=== PATIENT | male | born 1965 | race African-American/Black ===

== ENCOUNTER 2017-02-09 18:20 | Inpatient (IN) | payer OTHER ==
[2017-02-09 18:41] VITALS: BMI 35.0
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
[2017-02-09] MEDS ORDERED: LOPERAMIDE HCL 2 MG CAPSULE PO PRN (20:53)
[2017-02-09] MEDS ORDERED: MENTHOL/PHENOL 1 EACH UD MM PRN (20:53)
[2017-02-09] MEDS ORDERED: IBUPROFEN 400 MG TABLET (FP) PO PRN (20:53)
[2017-02-09] MEDS ORDERED: MAGNESIUM HYDROX 2400MG/30ML ORAL SUSPENSION 30 ML CUP PO PRN (20:53)
[2017-02-09] MEDS ORDERED: hydrOXYzine PAMOATE 50 MG CAPSULE (FP) PO PRN (20:53)
[2017-02-09] MEDS ORDERED: guaiFENesin/D-METHORPHAN HB 10 ML UNIT-DOSE CUPS PO PRN (20:53)
[2017-02-09] MEDS ORDERED: NICOTINE POLACRILEX 2 MG GUM BC PRN (20:53)
[2017-02-09] MEDS ORDERED: MAGNESIUM CITRATE 300 ML BOTTLE PO PRN (20:53)
[2017-02-09] MEDS ORDERED: diphenhydrAMINE HCL 50 MG CAPSULE PO PRN (20:53)
[2017-02-09] MEDS ORDERED: ALBUTEROL SO4 18 GM HFA INHALER IH PRN (20:54)
[2017-02-09] MEDS: THIAMINE HCL 100 MG TABLET (FP) PO SCH (23:02)
[2017-02-09] MEDS ORDERED: MINERAL OIL/PETROLAT/WATER TOPICAL CREAM 454 GM JAR TP PRN (23:02)
[2017-02-09 23:21] LABS: URINE APPEARANCE CLEAR; URINE BILIRUBIN NEGATIVE (NEGATIVE); URINE BLOOD NEGATIVE (NEGATIVE); URINE COLOR STRAW; URINE GLUCOSE (UA) NEGATIVE (NEGATIVE); URINE KETONE NEGATIVE (NEGATIVE); URINE NITRITE NEGATIVE (NEGATIVE); URINE PROTEIN NEGATIVE (NEGATIVE); URINE UROBILINOGEN NEGATIVE mg/dL (0.2-1.0)
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
[2017-02-10 09:41] LABS: MCH 28.4 pg (25.7-33.7); MCHC 31.4 g/dl (32.0-35.9); MEAN CELL VOLUME 90.6 fl (80-96); MEAN PLT VOLUME 9.3 fl (7.5-11.1); PLATELET COUNT 268 K/MM3 (134-434); RDW 18.1 % (11.9-15.9)
--- NOTE | 2017-02-10 09:56 | EKG ---
Test Reason : Blood Pressure : / mmHG Vent. Rate : 093 BPM Atrial Rate : 093 BPM P-R Int : 138 ms QRS Dur : 086 ms QT Int : 362 ms P-R-T Axes : 062 060 033 degrees QTc Int : 450 ms NORMAL SINUS RHYTHM NORMAL ECG NO PREVIOUS ECGS AVAILABLE Confirmed by KAHLIL SHAFFER MD ([id number]) on 02/10/2017 9:55:44 AM Referred By: Confirmed By:KAHLIL SHAFFER MD
[2017-02-10 10:20] LABS: URINE LEUK ESTERASE Negative (NEGATIVE)
[2017-02-10] MEDS: amLODIPine BESYLATE 10 MG TABLET (FP) PO SCH (10:25)
[2017-02-10] MEDS: ASPIRIN 81 MG CHEWABLE TABLETS PO SCH (10:26)
[2017-02-10] MEDS: ACETAMINOPHEN 325 MG TABLET (FP) PO PRN ×2 (10:26→21:40)
[2017-02-10] MEDS: LISINOPRIL 10 MG TABLET (FP) PO SCH (10:26)
[2017-02-10] MEDS: PRENATAL VITAMINS W/ FOLIC ACID TABLET (FP) PO SCH (10:26)
[2017-02-10] MEDS: NICOTINE 14 MG/24 HOURS TOPICAL PATCH TD SCH (10:28)
[2017-02-10 10:44] LABS: ALBUMIN 3.5 g/dl (3.4-5.0); ALK PHOS 92 U/L (45-117); ANION GAP 8 (8-16); BILIRUBIN,TOTAL 0.2 mg/dL (0.2-1.0); CALCIUM 8.8 mg/dL (8.5-10.1); CO2 28 mmol/L (21-32); CREATININE 0.9 mg/dL (0.7-1.3); GLUCOSE,RANDOM 146 mg/dL (74-106); SGOT/AST 43 U/L (15-37); SGPT/ALT 55 U/L (12-78); TOT PROT 6.8 g/dl (6.4-8.2)
[2017-02-10 12:13] LABS: HIV 1 & 2 AB NEGATIVE; HIV 1 AGp24 NEGATIVE
[2017-02-10] MEDS ORDERED: PT OWN MED DRAWER 7, Y5N ONE (20:23)
[2017-02-10] MEDS: ATORVASTATIN CA 40 MG TABLET (FP) PO SCH (21:40)
[2017-02-10] MEDS: THIAMINE HCL 100 MG TABLET (FP) PO SCH (21:40)
[2017-02-11] MEDS: LISINOPRIL 10 MG TABLET (FP) PO SCH (09:52)
[2017-02-11] MEDS: amLODIPine BESYLATE 10 MG TABLET (FP) PO SCH (09:52)
[2017-02-11] MEDS: ASPIRIN 81 MG CHEWABLE TABLETS PO SCH (09:52)
[2017-02-11] MEDS: PRENATAL VITAMINS W/ FOLIC ACID TABLET (FP) PO SCH (09:52)
[2017-02-11] MEDS: NICOTINE 14 MG/24 HOURS TOPICAL PATCH TD SCH (09:52)
[2017-02-11] MEDS: ACETAMINOPHEN 325 MG TABLET (FP) PO PRN ×2 (09:54→21:22)
[2017-02-11] MEDS: MAG HYDROX/AL HYDROX/SIMETH 30 ML UNIT-DOSE CUP PO PRN (11:53)
[2017-02-11] MEDS: P-EPHED 60MG/TRIPROLIDI 2.5MG TABLET PO PRN (18:05)
[2017-02-11] MEDS: THIAMINE HCL 100 MG TABLET (FP) PO SCH (21:21)
[2017-02-11] MEDS: ATORVASTATIN CA 40 MG TABLET (FP) PO SCH (21:21)
[2017-02-12] MEDS: ACETAMINOPHEN 325 MG TABLET (FP) PO PRN ×2 (09:51→21:36)
[2017-02-12] MEDS: NICOTINE 14 MG/24 HOURS TOPICAL PATCH TD SCH (09:52)
[2017-02-12] MEDS: amLODIPine BESYLATE 10 MG TABLET (FP) PO SCH (09:52)
[2017-02-12] MEDS: P-EPHED 60MG/TRIPROLIDI 2.5MG TABLET PO PRN (09:52)
[2017-02-12] MEDS: PRENATAL VITAMINS W/ FOLIC ACID TABLET (FP) PO SCH (09:52)
[2017-02-12] MEDS: LISINOPRIL 10 MG TABLET (FP) PO SCH (09:52)
[2017-02-12] MEDS: ASPIRIN 81 MG CHEWABLE TABLETS PO SCH (09:52)
[2017-02-12] MEDS: THIAMINE HCL 100 MG TABLET (FP) PO SCH (21:34)
[2017-02-12] MEDS: ATORVASTATIN CA 40 MG TABLET (FP) PO SCH (21:35)
[2017-02-13] MEDS: LISINOPRIL 10 MG TABLET (FP) PO SCH (10:08)
[2017-02-13] MEDS: amLODIPine BESYLATE 10 MG TABLET (FP) PO SCH (10:10)
[2017-02-13] MEDS: PRENATAL VITAMINS W/ FOLIC ACID TABLET (FP) PO SCH (10:10)
[2017-02-13] MEDS: ASPIRIN 81 MG CHEWABLE TABLETS PO SCH (10:10)
[2017-02-13] MEDS: NICOTINE 14 MG/24 HOURS TOPICAL PATCH TD SCH (10:10)
[2017-02-13] MEDS: ACETAMINOPHEN 325 MG TABLET (FP) PO PRN ×2 (10:13→21:18)
[2017-02-13] MEDS: ATORVASTATIN CA 40 MG TABLET (FP) PO SCH (21:19)
[2017-02-13] MEDS: P-EPHED 60MG/TRIPROLIDI 2.5MG TABLET PO PRN (21:19)
[2017-02-13] MEDS: THIAMINE HCL 100 MG TABLET (FP) PO SCH (21:20)
[2017-02-14] MEDS: ASPIRIN 81 MG CHEWABLE TABLETS PO SCH (10:05)
[2017-02-14] MEDS: ACETAMINOPHEN 325 MG TABLET (FP) PO PRN ×2 (10:05→21:36)
[2017-02-14] MEDS: LISINOPRIL 10 MG TABLET (FP) PO SCH (10:05)
[2017-02-14] MEDS: amLODIPine BESYLATE 10 MG TABLET (FP) PO SCH (10:05)
[2017-02-14] MEDS: PRENATAL VITAMINS W/ FOLIC ACID TABLET (FP) PO SCH (10:05)
[2017-02-14] MEDS: NICOTINE 14 MG/24 HOURS TOPICAL PATCH TD SCH (10:06)
[2017-02-14] MEDS: ATORVASTATIN CA 40 MG TABLET (FP) PO SCH (21:34)
[2017-02-14] MEDS: THIAMINE HCL 100 MG TABLET (FP) PO SCH (21:35)
[2017-02-14] MEDS: P-EPHED 60MG/TRIPROLIDI 2.5MG TABLET PO PRN (21:36)
[2017-02-15] MEDS: LISINOPRIL 10 MG TABLET (FP) PO SCH (10:09)
[2017-02-15] MEDS: PRENATAL VITAMINS W/ FOLIC ACID TABLET (FP) PO SCH (10:09)
[2017-02-15] MEDS: ASPIRIN 81 MG CHEWABLE TABLETS PO SCH (10:09)
[2017-02-15] MEDS: amLODIPine BESYLATE 10 MG TABLET (FP) PO SCH (10:10)
[2017-02-15] MEDS: ACETAMINOPHEN 325 MG TABLET (FP) PO PRN ×2 (10:11→21:19)
[2017-02-15] MEDS: NICOTINE 14 MG/24 HOURS TOPICAL PATCH TD SCH (10:13)
[2017-02-15] MEDS: THIAMINE HCL 100 MG TABLET (FP) PO SCH (21:19)
[2017-02-15] MEDS: ATORVASTATIN CA 40 MG TABLET (FP) PO SCH (21:19)
[2017-02-16] MEDS: ACETAMINOPHEN 325 MG TABLET (FP) PO PRN ×2 (10:15→21:31)
[2017-02-16] MEDS: ASPIRIN 81 MG CHEWABLE TABLETS PO SCH (10:16)
[2017-02-16] MEDS: PRENATAL VITAMINS W/ FOLIC ACID TABLET (FP) PO SCH (10:16)
[2017-02-16] MEDS: LISINOPRIL 10 MG TABLET (FP) PO SCH (10:16)
[2017-02-16] MEDS: amLODIPine BESYLATE 10 MG TABLET (FP) PO SCH (10:16)
[2017-02-16] MEDS: NICOTINE 14 MG/24 HOURS TOPICAL PATCH TD SCH (10:17)
[2017-02-16] MEDS: ATORVASTATIN CA 40 MG TABLET (FP) PO SCH (21:31)
[2017-02-16] MEDS: THIAMINE HCL 100 MG TABLET (FP) PO SCH (21:31)
[2017-02-17] MEDS: amLODIPine BESYLATE 10 MG TABLET (FP) PO SCH (09:54)
[2017-02-17] MEDS: PRENATAL VITAMINS W/ FOLIC ACID TABLET (FP) PO SCH (09:54)
[2017-02-17] MEDS: ASPIRIN 81 MG CHEWABLE TABLETS PO SCH (09:54)
[2017-02-17] MEDS: LISINOPRIL 10 MG TABLET (FP) PO SCH (09:54)
[2017-02-17] MEDS: NICOTINE 14 MG/24 HOURS TOPICAL PATCH TD SCH (09:55)
[2017-02-17] MEDS: MAG HYDROX/AL HYDROX/SIMETH 30 ML UNIT-DOSE CUP PO PRN (09:56)
[2017-02-17] MEDS: ACETAMINOPHEN 325 MG TABLET (FP) PO PRN ×2 (09:56→21:13)
[2017-02-17] MEDS: ATORVASTATIN CA 40 MG TABLET (FP) PO SCH (21:13)
[2017-02-17] MEDS: THIAMINE HCL 100 MG TABLET (FP) PO SCH (21:13)
[2017-02-18] MEDS: ASPIRIN 81 MG CHEWABLE TABLETS PO SCH (09:48)
[2017-02-18] MEDS: ACETAMINOPHEN 325 MG TABLET (FP) PO PRN ×2 (09:48→21:20)
[2017-02-18] MEDS: NICOTINE 14 MG/24 HOURS TOPICAL PATCH TD SCH (09:48)
[2017-02-18] MEDS: amLODIPine BESYLATE 10 MG TABLET (FP) PO SCH (09:48)
[2017-02-18] MEDS: PRENATAL VITAMINS W/ FOLIC ACID TABLET (FP) PO SCH (09:48)
[2017-02-18] MEDS: LISINOPRIL 10 MG TABLET (FP) PO SCH (09:48)
[2017-02-18] MEDS: ATORVASTATIN CA 40 MG TABLET (FP) PO SCH (21:20)
[2017-02-18] MEDS: THIAMINE HCL 100 MG TABLET (FP) PO SCH (21:20)
[2017-02-19] MEDS: PRENATAL VITAMINS W/ FOLIC ACID TABLET (FP) PO SCH (09:42)
[2017-02-19] MEDS: LISINOPRIL 10 MG TABLET (FP) PO SCH (09:42)
[2017-02-19] MEDS: ACETAMINOPHEN 325 MG TABLET (FP) PO PRN ×2 (09:44→21:16)
[2017-02-19] MEDS: amLODIPine BESYLATE 10 MG TABLET (FP) PO SCH (09:44)
[2017-02-19] MEDS: ASPIRIN 81 MG CHEWABLE TABLETS PO SCH (09:44)
[2017-02-19] MEDS: NICOTINE 14 MG/24 HOURS TOPICAL PATCH TD SCH (09:44)
[2017-02-19] MEDS: THIAMINE HCL 100 MG TABLET (FP) PO SCH (21:16)
[2017-02-19] MEDS: ATORVASTATIN CA 40 MG TABLET (FP) PO SCH (21:16)
[2017-02-20] MEDS: PRENATAL VITAMINS W/ FOLIC ACID TABLET (FP) PO SCH (09:51)
[2017-02-20] MEDS: ASPIRIN 81 MG CHEWABLE TABLETS PO SCH (09:51)
[2017-02-20] MEDS: ACETAMINOPHEN 325 MG TABLET (FP) PO PRN ×2 (09:51→21:19)
[2017-02-20] MEDS: amLODIPine BESYLATE 10 MG TABLET (FP) PO SCH (09:52)
[2017-02-20] MEDS: NICOTINE 14 MG/24 HOURS TOPICAL PATCH TD SCH (09:52)
[2017-02-20] MEDS: LISINOPRIL 10 MG TABLET (FP) PO SCH (09:52)
[2017-02-20] MEDS ORDERED: HYDROCORTISONE 0.5% TOPICAL CREAM 30 GM TUBE TP ONE (14:35)
[2017-02-20] MEDS: HYDROCORTISONE 0.5% TOPICAL CREAM 30 GM TUBE TP SCH (21:18)
[2017-02-20] MEDS: THIAMINE HCL 100 MG TABLET (FP) PO SCH (21:18)
[2017-02-20] MEDS: ATORVASTATIN CA 40 MG TABLET (FP) PO SCH (21:18)
[2017-02-21] MEDS: PRENATAL VITAMINS W/ FOLIC ACID TABLET (FP) PO SCH (09:53)
[2017-02-21] MEDS: ASPIRIN 81 MG CHEWABLE TABLETS PO SCH (09:53)
[2017-02-21] MEDS: ACETAMINOPHEN 325 MG TABLET (FP) PO PRN (09:53)
[2017-02-21] MEDS: amLODIPine BESYLATE 10 MG TABLET (FP) PO SCH (09:53)
[2017-02-21] MEDS: NICOTINE 14 MG/24 HOURS TOPICAL PATCH TD SCH (09:54)
[2017-02-21] MEDS: LISINOPRIL 10 MG TABLET (FP) PO SCH (09:54)
[2017-02-21] MEDS: HYDROCORTISONE 0.5% TOPICAL CREAM 30 GM TUBE TP SCH ×2 (09:54→23:17)
[2017-02-21] MEDS: ATORVASTATIN CA 40 MG TABLET (FP) PO SCH (21:46)
[2017-02-21] MEDS: THIAMINE HCL 100 MG TABLET (FP) PO SCH (21:46)
--- NOTE | 2017-02-22 06:42 | PN ---
Psychiatric Progress Note Vital Signs: Vital Signs Period Temp Pulse Resp BP Sys/Lindquist Pulse Ox Last 24 Hr 98.5 F 78-79 18-20 110-140/71-77 Date of Session: 02/22/17 Chief Complaint:: Discharge Note HPI: Patient addressing Alcohol and Cannabis Dependence comorbid with Nicotine Dependence and Posttraumatic Stress Disorder ROS: Asthma, GERD, HTN were medically managed Current Medications: Active Medications Generic Name Dose Route Start Last Admin Trade Name Freq PRN Reason Stop Dose Admin Acetaminophen 650 mg 02/09/17 20:53 02/21/17 09:53 Tylenol - PO 650 mg Q4H PRN Administration PAIN Al Hydroxide/Mg Hydroxide 30 ml 02/09/17 20:53 02/17/17 09:56 Mylanta Oral Suspension - PO 30 ml Q6H PRN Administration DYSPEPSIA Albuterol Sulfate 2 puff 02/09/17 20:54 Ventolin Hfa Inhaler - IH Q6H PRN ASTHMA Amlodipine Besylate 10 mg 02/10/17 10:00 02/21/17 09:53 Norvasc - PO 10 mg DAILY BARRIE Administration Aspirin 81 mg 02/10/17 10:00 02/21/17 09:53 Asa - PO 81 mg DAILY BARRIE Administration Atorvastatin Calcium 40 mg 02/10/17 22:00 02/21/17 21:46 Lipitor - PO 40 mg HS BARRIE Administration Diphenhydramine HCl 50 mg 02/09/17 20:53 Benadryl - PO HSMR1 PRN INSOMNIA Eucalyptus/Menthol/Phenol/Sorbitol 1 each 02/09/17 20:53 Cepastat Lozenge - MM Q4H PRN SORE THROAT Guaifenesin 10 ml 02/09/17 20:53 02/13/17 10:13 Robitussin Dm - PO 10 ml Q6H PRN Administration COUGH Hydrocortisone 1 applic 02/20/17 22:00 02/21/17 23:17 Hytone 0.5% Cream - TP Not Given BID BARRIE Hydroxyzine Pamoate 50 mg 02/09/17 20:53 Vistaril - PO Q4H PRN AGITATION Ibuprofen 400 mg 02/09/17 20:53 Motrin - PO Q6H PRN SEVERE PAIN Lisinopril 10 mg 02/10/17 10:00 02/21/17 09:54 Prinivil PO 10 mg DAILY BARRIE Administration Loperamide HCl 4 mg 02/09/17 20:53 02/16/17 13:18 Imodium - PO 4 mg Q6H PRN Administration DIARRHEA Magnesium Citrate 300 ml 02/09/17 20:53 Citroma - PO Q48H PRN CONSTIPATION Magnesium Hydroxide 30 ml 02/09/17 20:53 Milk Of Magnesia - PO DAILY PRN CONSTIPATION Multi-Ingredient Lotion 1 applic 02/09/17 23:02 Eucerin (Large Jar) - TP BID PRN DRY SKIN Nicotine 14 mg 02/10/17 10:00 02/21/17 09:54 Nicoderm Patch - TD Not Given DAILY BARRIE Nicotine Polacrilex 2 mg 02/09/17 20:53 Nicorette Gum - BC Q2H PRN NICOTINE REPLACEMENT RX Multivit/Folic Acid/Iron 1 tab 02/10/17 10:00 02/21/17 09:53 Vitamins ([facility]) - PO 1 tab DAILY BARRIE Administration Pseudoephedrine/Triprolidine 1 combo 02/09/17 20:53 02/14/17 21:36 Actifed - PO 1 combo TID PRN Administration NASAL CONGESTION Thiamine HCl 100 mg 02/09/17 22:00 02/21/17 21:46 Vitamin B1 - PO 100 mg HS BARRIE Administration Current Side Effect: No Lab tests ordered: Yes Lab tests reviewed: Yes Provider note:: Patient will complete this program on 02/23/17. He has met his treatment goals and will continue to address his issues in outpatient treatment at [facility]. 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 He is stable for discharge on 02/23/17 Total face to face time:: 35 Mental Status Exam - Mental Status Exam Alert and Oriented to: Time, Place, Person Cognitive Function: Fair Patient Appearance: Well Groomed Mood: Hopeful, Euthymic Affect: Appropriate Patient Behavior: Cooperative Speech Pattern: Clear Voice Loudness: Normal Thought Process: Intact, Goal Oriented Thought Disorder: Not Present Hallucinations: Denies Suicidal Ideation: Denies Homicidal Ideation: Denies Insight/Judgement: Fair Sleep: Well Appetite: Good Muscle strength/Tone: Normal Gait/Station: Normal Psychiatric Treatment Plan - Problem List (9) Status post skin graft Initial treatment plan: Patient will be discharged tomorrow and referred to [facility] for outpatient treatment
[2017-02-22] MEDS: ASPIRIN 81 MG CHEWABLE TABLETS PO SCH (09:44)
[2017-02-22] MEDS: LISINOPRIL 10 MG TABLET (FP) PO SCH (09:44)
[2017-02-22] MEDS: PRENATAL VITAMINS W/ FOLIC ACID TABLET (FP) PO SCH (09:44)
[2017-02-22] MEDS: amLODIPine BESYLATE 10 MG TABLET (FP) PO SCH (09:44)
[2017-02-22] MEDS: ACETAMINOPHEN 325 MG TABLET (FP) PO PRN ×2 (09:45→21:20)
[2017-02-22] MEDS: NICOTINE 14 MG/24 HOURS TOPICAL PATCH TD SCH (09:45)
[2017-02-22] MEDS: HYDROCORTISONE 0.5% TOPICAL CREAM 30 GM TUBE TP SCH ×2 (09:45→22:20)
[2017-02-22] MEDS: THIAMINE HCL 100 MG TABLET (FP) PO SCH (21:20)
[2017-02-22] MEDS: ATORVASTATIN CA 40 MG TABLET (FP) PO SCH (21:20)
[2017-02-23 06:55] VITALS: BP 119/77; PULSE 89; TEMP 98.6
[2017-02-23] MEDS: ASPIRIN 81 MG CHEWABLE TABLETS PO SCH (09:49)
[2017-02-23] MEDS: LISINOPRIL 10 MG TABLET (FP) PO SCH (09:49)
[2017-02-23] MEDS: amLODIPine BESYLATE 10 MG TABLET (FP) PO SCH (09:49)
[2017-02-23] MEDS: PRENATAL VITAMINS W/ FOLIC ACID TABLET (FP) PO SCH (09:49)
[2017-02-23] MEDS ORDERED: PT OWN MED DRAWER 7, Y5N ONE (09:51)
== END 2017-02-23 10:05 | disposition home or self-care (01) | DRG 772 ==
LOC: YASAS 18:20 → Y3W 19:44
PROVIDERS: ADMIT Psychiatry & Neurology Psychiatry; ATTEND Psychiatry & Neurology Psychiatry
PROC: HZ42ZZZ Group Counseling for Substance Abuse Treatment, Cognitive-Behavioral (ICD-10-PCS; principal; 2017-02-09)
DX: F13.20 Sedative, hypnotic or anxiolytic dependence, uncomplicated (principal); F10.20 Alcohol dependence, uncomplicated; F17.210 Nicotine dependence, cigarettes, uncomplicated; F43.10 Post-traumatic stress disorder, unspecified; J45.909 Unspecified asthma, uncomplicated; I10 Essential (primary) hypertension; K21.9 Gastro-esophageal reflux disease without esophagitis
CPT/HCPCS: 36415; 80053; 81003; 85027; 86593; 87389; 93005; 93010

== ENCOUNTER 2017-11-07 11:10 | Inpatient (IN) | payer OTHER ==
[2017-11-07 11:20] VITALS: BMI 33.6
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
[2017-11-07] MEDS ORDERED: MAGNESIUM HYDROX 2400MG/30ML ORAL SUSPENSION 30 ML CUP PO PRN (14:26)
[2017-11-07] MEDS ORDERED: MENTHOL/PHENOL 1 EACH UD MM PRN (14:26)
[2017-11-07] MEDS ORDERED: NICOTINE POLACRILEX 4 MG GUM BUC PRN (14:26)
[2017-11-07] MEDS ORDERED: MAG HYDROX/AL HYDROX/SIMETH 30 ML UNIT-DOSE CUP PO PRN (14:26)
[2017-11-07] MEDS ORDERED: LOPERAMIDE HCL 2 MG CAPSULE PO PRN (14:26)
[2017-11-07] MEDS ORDERED: chlordiazePOXIDE HCL 25 MG CAPSULE PO PRN (14:26)
[2017-11-07] MEDS ORDERED: P-EPHED 60MG/TRIPROLIDI 2.5MG TABLET PO PRN (14:26)
[2017-11-07] MEDS ORDERED: NICOTINE 21 MG/24 HOURS TOPICAL PATCH TD PRN (14:26)
[2017-11-07] MEDS ORDERED: MAGNESIUM CITRATE 300 ML BOTTLE PO PRN (14:26)
[2017-11-07] MEDS ORDERED: ALBUTEROL SO4 8 GM HFA INHALER IH PRN (14:27)
[2017-11-07] MEDS: chlordiazePOXIDE HCL 25 MG CAPSULE PO SCH ×2 (17:24→22:07)
[2017-11-07] MEDS: ACETAMINOPHEN 325 MG TABLET (FP) PO PRN (17:24)
--- NOTE | 2017-11-07 21:39 | EKG ---
Test Reason : Blood Pressure : / mmHG Vent. Rate : 078 BPM Atrial Rate : 078 BPM P-R Int : 146 ms QRS Dur : 088 ms QT Int : 408 ms P-R-T Axes : 072 057 047 degrees QTc Int : 465 ms NORMAL SINUS RHYTHM NORMAL ECG WHEN COMPARED WITH ECG OF 09-FEB-2017 23:26, NONSPECIFIC T WAVE ABNORMALITY NO LONGER EVIDENT IN LATERAL LEADS Confirmed by MD TONIA, RUPALI ([id number]) on 11/07/2017 9:39:18 PM Referred By: Confirmed By:RUPALI RANDALL MD
[2017-11-07] MEDS ORDERED: MELATONIN 5 MG TABLETS PO PRN (22:00)
[2017-11-07] MEDS: THIAMINE HCL 100 MG TABLET (FP) PO SCH (22:07)
[2017-11-07] MEDS: ATORVASTATIN CA 40 MG TABLET (FP) PO SCH (22:07)
[2017-11-07] MEDS: RANITIDINE HCL 150 MG TABLET (FP) PO SCH (22:07)
[2017-11-08 00:59] LABS: URINE APPEARANCE CLEAR; URINE BILIRUBIN NEGATIVE (<2.0 mg/dL); URINE COLOR LTYELLOW; URINE GLUCOSE (UA) NEGATIVE (NEGATIVE); URINE KETONE NEGATIVE (NEGATIVE); URINE LEUK ESTERASE NEGATIVE (NEGATIVE); URINE NITRITE NEGATIVE (NEGATIVE); URINE PROTEIN NEGATIVE (NEGATIVE); URINE UROBILINOGEN NEGATIVE mg/dL (0.2-1.0)
[2017-11-08] MEDS: chlordiazePOXIDE HCL 25 MG CAPSULE PO SCH ×4 (05:04→22:06)
[2017-11-08 09:52] LABS: HEMATOCRIT 36.4 % (35.4-49); HEMOGLOBIN 11.8 GM/dL (11.7-16.9); MCHC 32.3 g/dl (32.0-35.9); MEAN CELL VOLUME 89.5 fl (80-96); MEAN PLT VOLUME 9.2 fl (7.5-11.1); PLATELET COUNT 380 K/MM3 (134-434); RBC 4.07 M/mm3 (4.00-5.60); RDW 15.7 % (11.9-15.9); WHITE BLOOD COUNT 10.8 K/mm3 (4.0-10.0)
[2017-11-08 09:55] LABS: CHLORIDE 105 mmol/L (98-107); POTASSIUM 4.5 mmol/L (3.5-5.1); SODIUM 140 mmol/L (136-145)
[2017-11-08] MEDS ORDERED: ASPIRIN 81 MG CHEWABLE TABLETS PO SCH (10:00)
[2017-11-08 10:06] LABS: ALBUMIN 4.1 g/dl (3.4-5.0); ALK PHOS 72 U/L (45-117); ANION GAP 7 (8-16); BILIRUBIN,TOTAL 0.3 mg/dL (0.2-1.0); BLOOD UREA NITROGEN 27 mg/dL (7-18); CO2 28 mmol/L (21-32); CREATININE 1.3 mg/dL (0.7-1.3); GLUCOSE,RANDOM 75 mg/dL (74-106); SGOT/AST 17 U/L (15-37); SGPT/ALT 25 U/L (12-78); TOT PROT 7.3 g/dl (6.4-8.2)
[2017-11-08] MEDS: RANITIDINE HCL 150 MG TABLET (FP) PO SCH ×2 (10:25→22:07)
[2017-11-08] MEDS: PRENATAL VITAMINS W/ FOLIC ACID TABLET (FP) PO SCH (10:25)
[2017-11-08] MEDS: amLODIPine BESYLATE 10 MG TABLET (FP) PO SCH (10:25)
[2017-11-08] MEDS: ASPIRIN 81 MG CHEWABLE TABLETS PO SCH (10:25)
--- NOTE | 2017-11-08 14:58 | PN ---
[facility] CIWA - CIWA Score Nausea/Vomitin-No Nausea/No Vomiting Muscle Tremors: None Anxiety: 4-Mod. Anxious/Guarded Agitation: 4-Moderately Restless Paroxysmal Sweats: 3 Orientation: 0-Oriented Tacttile Disturbances: 3-Moderate Itch/Numb/Burn Auditory Disturbances: 0-None Visual Disturbances: 0-None Headache: 3-Moderate CIWA-Ar Total Score: 17 [facility] Progress Note (SOAP) Subjective: Sweating, Anxious, Diarrhea, H/A. Objective: PATIENT A & O X 3, OBSERVED AMBULATING ON UNIT. NO ACUTE DISTRESS. 11/08/17 14:56 Vital Signs Temperature 98.3 F 11/08/17 13:49 Pulse Rate 77 11/08/17 13:49 Respiratory Rate 18 11/08/17 13:49 Blood Pressure 121/79 11/08/17 13:49 O2 Sat by Pulse Oximetry (%) Laboratory Tests 11/07/17 11/07/17 11/08/17 06:00 14:55 06:00 WBC 10.8 H RBC 4.07 Hgb 11.8 Hct 36.4 MCV 89.5 MCH 29.0 MCHC 32.3 RDW 15.7 D Plt Count 380 D MPV 9.2 Sodium Potassium Chloride Carbon Dioxide Anion Gap BUN Creatinine Creat Clearance w eGFR Random Glucose Calcium Total Bilirubin AST ALT Alkaline Phosphatase Total Protein Albumin Urine Color Ltyellow Urine Appearance Clear Urine pH 5.0 Ur Specific [place] 1.023 Urine Protein Negative Urine Glucose (UA) Negative Urine Ketones Negative Urine Blood Negative Urine Nitrite Negative Urine Bilirubin Negative Urine Urobilinogen Negative Ur Leukocyte Esterase Negative RPR Titer HIV 1&2 Antibody Screen Negative HIV P24 Antigen Negative 11/08/17 11/08/17 06:00 06:00 WBC RBC Hgb Hct MCV MCH MCHC RDW Plt Count MPV Sodium 140 Potassium 4.5 Chloride 105 Carbon Dioxide 28 Anion Gap 7 L BUN 27 H Creatinine 1.3 Creat Clearance w eGFR 57.53 Random Glucose 75 D Calcium 9.0 Total Bilirubin 0.3 AST 17 D ALT 25 D Alkaline Phosphatase 72 Total Protein 7.3 Albumin 4.1 Urine Color Urine Appearance Urine pH Ur Specific [place] Urine Protein Urine Glucose (UA) Urine Ketones Urine Blood Urine Nitrite Urine Bilirubin Urine Urobilinogen Ur Leukocyte Esterase RPR Titer Nonreactive HIV 1&2 Antibody Screen HIV P24 Antigen LABS NOTED. Assessment: 11/08/17 14:56 WITHDRAWAL SYMPTOMS. Plan: CONTINUE DETOX. INCREASE DAILY PO FLUID INTAKE. PRN IMMODIUM FOR DIARRHEA.
[2017-11-08] MEDS: ACETAMINOPHEN 325 MG TABLET (FP) PO PRN ×2 (15:01→22:06)
[2017-11-08] MEDS: THIAMINE HCL 100 MG TABLET (FP) PO SCH (22:06)
[2017-11-08] MEDS: ATORVASTATIN CA 40 MG TABLET (FP) PO SCH (22:07)
[2017-11-09] MEDS: chlordiazePOXIDE HCL 25 MG CAPSULE PO SCH ×2 (05:05→10:07)
[2017-11-09] MEDS: PRENATAL VITAMINS W/ FOLIC ACID TABLET (FP) PO SCH (10:07)
[2017-11-09] MEDS: RANITIDINE HCL 150 MG TABLET (FP) PO SCH ×2 (10:07→22:07)
[2017-11-09] MEDS: amLODIPine BESYLATE 10 MG TABLET (FP) PO SCH (10:07)
[2017-11-09] MEDS: ASPIRIN 81 MG CHEWABLE TABLETS PO SCH (10:07)
[2017-11-09] MEDS: CARBAMIDE PEROXIDE 6.5% OTIC 15 ML BOTTLE AU SCH ×2 (10:50→22:07)
--- NOTE | 2017-11-09 12:52 | PN ---
[facility] CIWA - CIWA Score Nausea/Vomitin-No Nausea/No Vomiting Muscle Tremors: None Anxiety: 4-Mod. Anxious/Guarded Agitation: 2 Paroxysmal Sweats: 3 Orientation: 0-Oriented Tacttile Disturbances: 2-Mild Itch/Numbness/Burn Auditory Disturbances: 0-None Visual Disturbances: 2-Mild Sensitivity Headache: 0-None Present CIWA-Ar Total Score: 13 S Progress Note (SOAP) Subjective: Seating, Diarrhea, Body Aches, Anxious. Objective: PATIENT A & O X 3, OBSERVED AMBULATING ON UNIT. NO ACUTE DISTRESS. 11/09/17 12:54 Vital Signs Temperature 98.5 F 11/09/17 10:17 Pulse Rate 92 H 11/09/17 10:17 Respiratory Rate 20 11/09/17 10:17 Blood Pressure 135/79 11/09/17 10:17 O2 Sat by Pulse Oximetry (%) Laboratory Tests 11/07/17 11/07/17 11/08/17 06:00 14:55 06:00 WBC 10.8 H RBC 4.07 Hgb 11.8 Hct 36.4 MCV 89.5 MCH 29.0 MCHC 32.3 RDW 15.7 D Plt Count 380 D MPV 9.2 Sodium Potassium Chloride Carbon Dioxide Anion Gap BUN Creatinine Creat Clearance w eGFR Random Glucose Calcium Total Bilirubin AST ALT Alkaline Phosphatase Total Protein Albumin Urine Color Ltyellow Urine Appearance Clear Urine pH 5.0 Ur Specific [place] 1.023 Urine Protein Negative Urine Glucose (UA) Negative Urine Ketones Negative Urine Blood Negative Urine Nitrite Negative Urine Bilirubin Negative Urine Urobilinogen Negative Ur Leukocyte Esterase Negative RPR Titer HIV 1&2 Antibody Screen Negative HIV P24 Antigen Negative 11/08/17 11/08/17 06:00 06:00 WBC RBC Hgb Hct MCV MCH MCHC RDW Plt Count MPV Sodium 140 Potassium 4.5 Chloride 105 Carbon Dioxide 28 Anion Gap 7 L BUN 27 H Creatinine 1.3 Creat Clearance w eGFR 57.53 Random Glucose 75 D Calcium 9.0 Total Bilirubin 0.3 AST 17 D ALT 25 D Alkaline Phosphatase 72 Total Protein 7.3 Albumin 4.1 Urine Color Urine Appearance Urine pH Ur Specific [place] Urine Protein Urine Glucose (UA) Urine Ketones Urine Blood Urine Nitrite Urine Bilirubin Urine Urobilinogen Ur Leukocyte Esterase RPR Titer Nonreactive HIV 1&2 Antibody Screen HIV P24 Antigen LABS NOTED. Assessment: 11/09/17 12:54 WITHDRAWAL SYMPTOMS. Plan: CONTINUE DETOX. INCREASE DAILY PO FLUID INTAKE. PRN IMMODIUM FOR DIARRHEA.
[2017-11-09] MEDS: ACETAMINOPHEN 325 MG TABLET (FP) PO PRN (17:38)
[2017-11-09] MEDS: chlordiazePOXIDE 5 MG CAPSULE PO SCH ×2 (17:39→22:07)
[2017-11-09] MEDS: guaiFENesin/D-METHORPHAN HB 10 ML UNIT-DOSE CUPS PO PRN (19:18)
[2017-11-09] MEDS: ATORVASTATIN CA 40 MG TABLET (FP) PO SCH (22:06)
[2017-11-09] MEDS: THIAMINE HCL 100 MG TABLET (FP) PO SCH (22:07)
[2017-11-10] MEDS: chlordiazePOXIDE 5 MG CAPSULE PO SCH ×2 (05:06→10:09)
[2017-11-10] MEDS: guaiFENesin/D-METHORPHAN HB 10 ML UNIT-DOSE CUPS PO PRN (05:24)
[2017-11-10 09:20] VITALS: BP 132/78; PULSE 95; TEMP 98.3
[2017-11-10] MEDS: ASPIRIN 81 MG CHEWABLE TABLETS PO SCH (10:08)
[2017-11-10] MEDS: amLODIPine BESYLATE 10 MG TABLET (FP) PO SCH (10:09)
[2017-11-10] MEDS: CARBAMIDE PEROXIDE 6.5% OTIC 15 ML BOTTLE AU SCH (10:09)
[2017-11-10] MEDS: RANITIDINE HCL 150 MG TABLET (FP) PO SCH (10:09)
[2017-11-10] MEDS: PRENATAL VITAMINS W/ FOLIC ACID TABLET (FP) PO SCH (10:09)
--- NOTE | 2017-11-10 13:03 | PN ---
S Progress Note (SOAP) Subjective: Patient denies current Detox symptoms and reports that he feels well overall. Objective: PATIENT A & O X 3, OBSERVED AMBULATING ON UNIT. NO ACUTE DISTRESS. 11/10/17 13:02 Vital Signs Temperature 98.3 F 11/10/17 09:19 Pulse Rate 95 H 11/10/17 09:19 Respiratory Rate 18 11/10/17 09:19 Blood Pressure 132/78 11/10/17 09:19 O2 Sat by Pulse Oximetry (%) Laboratory Tests 11/07/17 11/07/17 11/08/17 06:00 14:55 06:00 WBC 10.8 H RBC 4.07 Hgb 11.8 Hct 36.4 MCV 89.5 MCH 29.0 MCHC 32.3 RDW 15.7 D Plt Count 380 D MPV 9.2 Sodium Potassium Chloride Carbon Dioxide Anion Gap BUN Creatinine Creat Clearance w eGFR Random Glucose Calcium Total Bilirubin AST ALT Alkaline Phosphatase Total Protein Albumin Urine Color Ltyellow Urine Appearance Clear Urine pH 5.0 Ur Specific [place] 1.023 Urine Protein Negative Urine Glucose (UA) Negative Urine Ketones Negative Urine Blood Negative Urine Nitrite Negative Urine Bilirubin Negative Urine Urobilinogen Negative Ur Leukocyte Esterase Negative RPR Titer HIV 1&2 Antibody Screen Negative HIV P24 Antigen Negative 11/08/17 11/08/17 06:00 06:00 WBC RBC Hgb Hct MCV MCH MCHC RDW Plt Count MPV Sodium 140 Potassium 4.5 Chloride 105 Carbon Dioxide 28 Anion Gap 7 L BUN 27 H Creatinine 1.3 Creat Clearance w eGFR 57.53 Random Glucose 75 D Calcium 9.0 Total Bilirubin 0.3 AST 17 D ALT 25 D Alkaline Phosphatase 72 Total Protein 7.3 Albumin 4.1 Urine Color Urine Appearance Urine pH Ur Specific [place] Urine Protein Urine Glucose (UA) Urine Ketones Urine Blood Urine Nitrite Urine Bilirubin Urine Urobilinogen Ur Leukocyte Esterase RPR Titer Nonreactive HIV 1&2 Antibody Screen HIV P24 Antigen LABS NOTED. Assessment: 11/10/17 13:02 COMPLETION OF DETOX REGIMEN. Plan: PATIENT SCHEDULED FOR DISCHARGE FROM DETOX UNIT TODAY. PATIENT GOING ON TO [facility] FOR AFTERCARE.
--- NOTE | 2017-11-10 13:07 | DS ---
[facility] Detox Discharge Summary Admission Date: 11/07/17 Discharge Date: 11/10/17 - History Present History: Alcohol Dependence, Sedative Dependence Additional Comments: PATIENT GOING TO [facility] ([facility]) FOR AFTERCARE. PATIENT WAS DISCHARGED FROM DETOX UNIT TO BE TAKEN OVER TO REHAB UNIT IN STABLE MEDICAL CONDITION. Pertinent Past History: Hypercholesterolemia, HTN, Nicotine Dependence, Asthma, G.E.R.D. - Physical Exam Results Vital Signs: Vital Signs Temperature 98.3 F 11/10/17 09:19 Pulse Rate 95 H 11/10/17 09:19 Respiratory Rate 18 11/10/17 09:19 Blood Pressure 132/78 11/10/17 09:19 O2 Sat by Pulse Oximetry (%) Pertinent Admission Physical Exam Findings: WITHDRAWAL SYMPTOMS. Laboratory Tests 11/07/17 11/07/17 11/08/17 06:00 14:55 06:00 WBC 10.8 H RBC 4.07 Hgb 11.8 Hct 36.4 MCV 89.5 MCH 29.0 MCHC 32.3 RDW 15.7 D Plt Count 380 D MPV 9.2 Sodium Potassium Chloride Carbon Dioxide Anion Gap BUN Creatinine Creat Clearance w eGFR Random Glucose Calcium Total Bilirubin AST ALT Alkaline Phosphatase Total Protein Albumin Urine Color Ltyellow Urine Appearance Clear Urine pH 5.0 Ur Specific [place] 1.023 Urine Protein Negative Urine Glucose (UA) Negative Urine Ketones Negative Urine Blood Negative Urine Nitrite Negative Urine Bilirubin Negative Urine Urobilinogen Negative Ur Leukocyte Esterase Negative RPR Titer HIV 1&2 Antibody Screen Negative HIV P24 Antigen Negative 11/08/17 11/08/17 06:00 06:00 WBC RBC Hgb Hct MCV MCH MCHC RDW Plt Count MPV Sodium 140 Potassium 4.5 Chloride 105 Carbon Dioxide 28 Anion Gap 7 L BUN 27 H Creatinine 1.3 Creat Clearance w eGFR 57.53 Random Glucose 75 D Calcium 9.0 Total Bilirubin 0.3 AST 17 D ALT 25 D Alkaline Phosphatase 72 Total Protein 7.3 Albumin 4.1 Urine Color Urine Appearance Urine pH Ur Specific [place] Urine Protein Urine Glucose (UA) Urine Ketones Urine Blood Urine Nitrite Urine Bilirubin Urine Urobilinogen Ur Leukocyte Esterase RPR Titer Nonreactive HIV 1&2 Antibody Screen HIV P24 Antigen LABS NOTED. - Treatment Hospital Course: Detox Protocol Followed, Detoxed Safely, Responded well, Discharged Condition Good, Rehab Referral Accepted Patient has Accepted a Rehab Referral to: [facility] ([facility] . - Medication Discharge Medications: Ambulatory Orders Albuterol Sulfate Inhaler - [Ventolin HFA Inhaler -] 2 puff IH Q6H PRN #1 inhaler 02/23/17 Amlodipine Besylate [Norvasc -] 10 mg PO DAILY #30 tab 02/23/17 Aspirin [ASA -] 325 mg PO DAILY 11/07/17 Atorvastatin Ca [Lipitor] 40 mg PO HS 11/07/17 - Diagnosis (1) Benzodiazepine dependence Status: Acute (2) Nicotine dependence Status: Acute Qualifiers: Nicotine product type: cigarettes Substance use status: in withdrawal Qualified Code(s): F17.213 - Nicotine dependence, cigarettes, with withdrawal (3) Asthma Status: Chronic Qualifiers: Asthma severity: mild Asthma persistence: intermittent Asthma complication type: with status asthmaticus Qualified Code(s): J45.22 - Mild intermittent asthma with status asthmaticus (4) GERD (gastroesophageal reflux disease) Status: Chronic Qualifiers: Esophagitis presence: without esophagitis Qualified Code(s): K21.9 - Gastro -esophageal reflux disease without esophagitis (5) HTN (hypertension) Status: Chronic Qualifiers: Hypertension type: essential hypertension Qualified Code(s): I10 - Essential (primary) hypertension (6) Hypercholesterolemia Status: Chronic - AMA Did Patient Leave Against Medical Advice: No
[2017-11-10 15:07] LABS: URINE APPEARANCE CLEAR; URINE BILIRUBIN NEGATIVE (<2.0 mg/dL); URINE COLOR STRAW; URINE GLUCOSE (UA) NEGATIVE (NEGATIVE); URINE KETONE NEGATIVE (NEGATIVE); URINE LEUK ESTERASE NEGATIVE (NEGATIVE); URINE NITRITE NEGATIVE (NEGATIVE); URINE PROTEIN NEGATIVE (NEGATIVE); URINE UROBILINOGEN NEGATIVE mg/dL (0.2-1.0)
[2017-11-10] MEDS ORDERED: chlordiazePOXIDE HCL 10 MG CAPSULE PO SCH (17:00)
== END 2017-11-10 12:16 | disposition other institution (70) | DRG 775 ==
LOC: YASAS 11:10 → Y3N 13:53
PROVIDERS: ADMIT Surgery; ATTEND Surgery
PROC: HZ2ZZZZ Detoxification Services for Substance Abuse Treatment (ICD-10-PCS; principal; 2017-11-07)
DX: F10.230 Alcohol dependence with withdrawal, uncomplicated (principal); F13.230 Sedative, hypnotic or anxiolytic dependence with withdrawal, uncomplicated; F17.213 Nicotine dependence, cigarettes, with withdrawal; E78.00 Pure hypercholesterolemia, unspecified; I10 Essential (primary) hypertension; J45.22 Mild intermittent asthma with status asthmaticus; K21.9 Gastro-esophageal reflux disease without esophagitis
CPT/HCPCS: 36415; 80053; 81003; 85027; 86593; 87389; 93005; 93010

== ENCOUNTER 2017-11-10 12:20 | Inpatient (IN) | payer OTHER ==
[2017-11-10] MEDS ORDERED: NICOTINE POLACRILEX 2 MG GUM BUC PRN (13:11)
[2017-11-10] MEDS ORDERED: LOPERAMIDE HCL 2 MG CAPSULE PO PRN (13:11)
--- NOTE | 2017-11-10 13:16 | HP ---
[facility] Rehab Assess/Revision - Admission History Admitted to Rehab from: [facility] Date of Admission to Rehab: 11/10/2017 - Vital signs Vital Signs: Vital Signs Period Temp Pulse Resp BP Sys/Lindquist Pulse Ox Last 24 Hr 98.2 F 93 18 131/76 - Findings Detox History & Physical reviewed: Yes Concur with findings: Yes Comments/Additional Findings: PATIENT'S MEDICAL / MEDICATION HISTORY REVIEWED PRIOR TO DISCHARGE FROM DETOX UNIT. PATIENT WAS DISCHARGED FROM DETOX UNIT TO BE TAKEN TO REHAB UNIT IN STABLE MEDICAL CONDITION. Inpatient Rehab Admission - Initial Determination Are CD services needed?: Yes Free of communicable disease: Yes Not in need of hospitalization: Yes - Rehab Admission Criteria Previous failed treatment: Yes Comorbidities: Yes Patient is meeting Inpatient Rehab admission criteria:: Yes
[2017-11-10] MEDS: guaiFENesin/D-METHORPHAN HB 10 ML UNIT-DOSE CUPS PO PRN (18:48)
[2017-11-10] MEDS: P-EPHED 60MG/TRIPROLIDI 2.5MG TABLET PO PRN (18:48)
[2017-11-10] MEDS: THIAMINE HCL 100 MG TABLET (FP) PO SCH (21:38)
[2017-11-10] MEDS: ATORVASTATIN CA 40 MG TABLET (FP) PO SCH (21:38)
[2017-11-10] MEDS ORDERED: MELATONIN 5 MG TABLETS PO PRN (22:00)
[2017-11-11] MEDS: amLODIPine BESYLATE 10 MG TABLET (FP) PO SCH (10:00)
[2017-11-11] MEDS ORDERED: ASPIRIN 81 MG CHEWABLE TABLETS PO SCH (10:00)
[2017-11-11] MEDS: NICOTINE 14 MG/24 HOURS TOPICAL PATCH TD SCH (10:00)
[2017-11-11] MEDS: PRENATAL VITAMINS W/ FOLIC ACID TABLET (FP) PO SCH (10:01)
[2017-11-11] MEDS: P-EPHED 60MG/TRIPROLIDI 2.5MG TABLET PO PRN (11:55)
[2017-11-11] MEDS: guaiFENesin/D-METHORPHAN HB 10 ML UNIT-DOSE CUPS PO PRN (11:56)
[2017-11-11] MEDS: ACETAMINOPHEN 325 MG TABLET (FP) PO PRN (21:13)
[2017-11-11] MEDS: THIAMINE HCL 100 MG TABLET (FP) PO SCH (21:13)
[2017-11-11] MEDS: ATORVASTATIN CA 40 MG TABLET (FP) PO SCH (21:13)
[2017-11-12] MEDS: PRENATAL VITAMINS W/ FOLIC ACID TABLET (FP) PO SCH (10:10)
[2017-11-12] MEDS: ASPIRIN 325 MG ENTERIC COATED TABLET (FP) PO SCH (10:10)
[2017-11-12] MEDS: NICOTINE 14 MG/24 HOURS TOPICAL PATCH TD SCH (10:10)
[2017-11-12] MEDS: amLODIPine BESYLATE 10 MG TABLET (FP) PO SCH (10:10)
[2017-11-12] MEDS: ACETAMINOPHEN 325 MG TABLET (FP) PO PRN (16:22)
[2017-11-12] MEDS: THIAMINE HCL 100 MG TABLET (FP) PO SCH (21:31)
[2017-11-12] MEDS: ATORVASTATIN CA 40 MG TABLET (FP) PO SCH (21:32)
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
[2017-11-13] MEDS: ASPIRIN 325 MG ENTERIC COATED TABLET (FP) PO SCH (09:59)
[2017-11-13] MEDS: amLODIPine BESYLATE 10 MG TABLET (FP) PO SCH (09:59)
[2017-11-13] MEDS: NICOTINE 14 MG/24 HOURS TOPICAL PATCH TD SCH (10:00)
[2017-11-13] MEDS: PRENATAL VITAMINS W/ FOLIC ACID TABLET (FP) PO SCH (10:00)
[2017-11-13] MEDS: guaiFENesin/D-METHORPHAN HB 10 ML UNIT-DOSE CUPS PO PRN (10:00)
--- NOTE | 2017-11-13 15:20 | PN ---
S Progress Note Note: PATIENT C/O DRY SKIN AND CONSTIPATION. STATES STOOL IS HARD TO PASS. DENIES N/V/ D AND ABDOMINAL PAIN. Vital Signs (72 hours) 11/11/17 11/11/17 11/11/17 00:30 03:30 06:52 Temperature 97.8 F Pulse Rate 57 L Respiratory 18 18 18 Rate Blood Pressure 115/78 11/11/17 11/12/17 11/12/17 10:00 00:30 03:30 Temperature Pulse Rate 94 H Respiratory 18 20 18 Rate Blood Pressure 114/77 11/12/17 11/12/17 11/13/17 06:59 11:14 00:30 Temperature 97.6 F Pulse Rate 84 96 H Respiratory 18 19 18 Rate Blood Pressure 131/78 130/76 11/13/17 11/13/17 11/13/17 03:30 07:05 08:30 Temperature 98.1 F Pulse Rate 87 93 H Respiratory 18 18 Rate Blood Pressure 143/76 134/84 OBJ: SKIN: WARM AND DRY. NO OPEN AREAS OR LESIONS. GI: ND,NT, SOFT EXT: NO EDEMA A/P: CONSTIPATION DRY SKIN WILL ORDER AVEENO SOAP AND EUCERIN CREAM SENNA 2 TABS HS INCREASE ORAL FLUIDS CONTINUE TO MONITOR CLINICALLY.
[2017-11-13] MEDS: MINERAL OIL/PETROLAT/WATER TOPICAL CREAM 113 GM JAR TP SCH (21:21)
[2017-11-13] MEDS: COLLOIDAL OATMEAL 1 BAR EACH TP PRN (21:23)
[2017-11-13] MEDS: THIAMINE HCL 100 MG TABLET (FP) PO SCH (21:24)
[2017-11-13] MEDS: ATORVASTATIN CA 40 MG TABLET (FP) PO SCH (21:24)
[2017-11-13] MEDS: SENNOSIDES 8.6MG TABLET (FP) PO SCH (21:26)
[2017-11-14] MEDS: NICOTINE 14 MG/24 HOURS TOPICAL PATCH TD SCH (10:06)
[2017-11-14] MEDS: PRENATAL VITAMINS W/ FOLIC ACID TABLET (FP) PO SCH (10:06)
[2017-11-14] MEDS: amLODIPine BESYLATE 10 MG TABLET (FP) PO SCH (10:06)
[2017-11-14] MEDS: ASPIRIN 325 MG ENTERIC COATED TABLET (FP) PO SCH (10:06)
[2017-11-14] MEDS: MINERAL OIL/PETROLAT/WATER TOPICAL CREAM 113 GM JAR TP SCH ×2 (10:07→22:07)
--- NOTE | 2017-11-14 15:51 | PN ---
[facility] Progress Note Note: c/o of bilateral earache, no hearing loss Vital Signs Temperature 97.7 F 11/14/17 07:03 Pulse Rate 94 H 11/14/17 10:00 Respiratory Rate 18 11/14/17 10:00 Blood Pressure 124/76 11/14/17 10:00 O2 Sat by Pulse Oximetry (%) A/P AO x 3 no distress + erythema both ear canal , + mild wax + pain with pinnea manipulation no adventitious breath sounds full ROM ambulating in the unit - otitis externa Plan: Cortisporin blt ears q6h x 7 days tylenol PRN increase fluids continue to monitor
[2017-11-14] MEDS: ATORVASTATIN CA 40 MG TABLET (FP) PO SCH (21:25)
[2017-11-14] MEDS: NEOMYCIN/POLYMYXN/HC OTIC SOLUTION 10 ML BOTTLE AU SCH ×2 (21:25→23:27)
[2017-11-14] MEDS: THIAMINE HCL 100 MG TABLET (FP) PO SCH (21:26)
[2017-11-14] MEDS: SENNOSIDES 8.6MG TABLET (FP) PO SCH (21:26)
[2017-11-15] MEDS: NEOMYCIN/POLYMYXN/HC OTIC SOLUTION 10 ML BOTTLE AU SCH ×3 (06:42→18:11)
[2017-11-15] MEDS: ASPIRIN 325 MG ENTERIC COATED TABLET (FP) PO SCH (10:09)
[2017-11-15] MEDS: amLODIPine BESYLATE 10 MG TABLET (FP) PO SCH (10:09)
[2017-11-15] MEDS: PRENATAL VITAMINS W/ FOLIC ACID TABLET (FP) PO SCH (10:09)
[2017-11-15] MEDS: NICOTINE 14 MG/24 HOURS TOPICAL PATCH TD SCH (10:10)
[2017-11-15] MEDS: MINERAL OIL/PETROLAT/WATER TOPICAL CREAM 113 GM JAR TP SCH ×2 (10:10→21:21)
[2017-11-15] MEDS: ATORVASTATIN CA 40 MG TABLET (FP) PO SCH (21:20)
[2017-11-15] MEDS: THIAMINE HCL 100 MG TABLET (FP) PO SCH (21:20)
[2017-11-15] MEDS: SENNOSIDES 8.6MG TABLET (FP) PO SCH (21:20)
[2017-11-16] MEDS: NEOMYCIN/POLYMYXN/HC OTIC SOLUTION 10 ML BOTTLE AU SCH ×5 (05:00→23:54)
[2017-11-16] MEDS: ASPIRIN 325 MG ENTERIC COATED TABLET (FP) PO SCH (10:04)
[2017-11-16] MEDS: PRENATAL VITAMINS W/ FOLIC ACID TABLET (FP) PO SCH (10:04)
[2017-11-16] MEDS: amLODIPine BESYLATE 10 MG TABLET (FP) PO SCH (10:04)
[2017-11-16] MEDS: NICOTINE 14 MG/24 HOURS TOPICAL PATCH TD SCH (10:05)
[2017-11-16] MEDS: COLLOIDAL OATMEAL 1 BAR EACH TP PRN (10:06)
[2017-11-16] MEDS ORDERED: PT OWN MED DRAWER 7, Y5N ONE (10:06)
[2017-11-16] MEDS: MINERAL OIL/PETROLAT/WATER TOPICAL CREAM 113 GM JAR TP SCH ×2 (10:06→21:18)
[2017-11-16] MEDS: ACETAMINOPHEN 325 MG TABLET (FP) PO PRN (13:16)
[2017-11-16] MEDS: SENNOSIDES 8.6MG TABLET (FP) PO SCH (21:17)
[2017-11-16] MEDS: THIAMINE HCL 100 MG TABLET (FP) PO SCH (21:17)
[2017-11-16] MEDS: ATORVASTATIN CA 40 MG TABLET (FP) PO SCH (21:18)
[2017-11-17] MEDS: NEOMYCIN/POLYMYXN/HC OTIC SOLUTION 10 ML BOTTLE AU SCH ×4 (06:13→23:44)
[2017-11-17] MEDS: PRENATAL VITAMINS W/ FOLIC ACID TABLET (FP) PO SCH (10:31)
[2017-11-17] MEDS: ASPIRIN 325 MG ENTERIC COATED TABLET (FP) PO SCH (10:31)
[2017-11-17] MEDS: amLODIPine BESYLATE 10 MG TABLET (FP) PO SCH (10:32)
[2017-11-17] MEDS: ACETAMINOPHEN 325 MG TABLET (FP) PO PRN (10:32)
[2017-11-17] MEDS: MINERAL OIL/PETROLAT/WATER TOPICAL CREAM 113 GM JAR TP SCH ×2 (10:33→21:13)
[2017-11-17] MEDS: NICOTINE 14 MG/24 HOURS TOPICAL PATCH TD SCH (10:33)
[2017-11-17] MEDS: ATORVASTATIN CA 40 MG TABLET (FP) PO SCH (21:14)
[2017-11-17] MEDS: SENNOSIDES 8.6MG TABLET (FP) PO SCH (21:14)
[2017-11-17] MEDS: THIAMINE HCL 100 MG TABLET (FP) PO SCH (21:14)
[2017-11-17] MEDS ORDERED: PT OWN MED DRAWER 7, Y5N ONE (22:02)
[2017-11-18] MEDS: NEOMYCIN/POLYMYXN/HC OTIC SOLUTION 10 ML BOTTLE AU SCH ×5 (06:33→23:24)
[2017-11-18] MEDS ORDERED: PT OWN MED DRAWER 7, Y5N ONE ×4 (08:40→22:57)
[2017-11-18] MEDS: NICOTINE 14 MG/24 HOURS TOPICAL PATCH TD SCH (09:43)
[2017-11-18] MEDS: amLODIPine BESYLATE 10 MG TABLET (FP) PO SCH (09:43)
[2017-11-18] MEDS: PRENATAL VITAMINS W/ FOLIC ACID TABLET (FP) PO SCH (09:43)
[2017-11-18] MEDS: ASPIRIN 325 MG ENTERIC COATED TABLET (FP) PO SCH (09:43)
[2017-11-18] MEDS: MINERAL OIL/PETROLAT/WATER TOPICAL CREAM 113 GM JAR TP SCH ×2 (09:43→22:20)
[2017-11-18] MEDS: ACETAMINOPHEN 325 MG TABLET (FP) PO PRN (17:47)
[2017-11-18] MEDS: SENNOSIDES 8.6MG TABLET (FP) PO SCH (21:12)
[2017-11-18] MEDS: ATORVASTATIN CA 40 MG TABLET (FP) PO SCH (21:12)
[2017-11-18] MEDS: THIAMINE HCL 100 MG TABLET (FP) PO SCH (21:12)
[2017-11-19] MEDS: NEOMYCIN/POLYMYXN/HC OTIC SOLUTION 10 ML BOTTLE AU SCH ×4 (06:34→23:04)
[2017-11-19] MEDS ORDERED: PT OWN MED DRAWER 7, Y5N ONE ×5 (08:46→23:06)
[2017-11-19] MEDS: PRENATAL VITAMINS W/ FOLIC ACID TABLET (FP) PO SCH (09:54)
[2017-11-19] MEDS: ASPIRIN 325 MG ENTERIC COATED TABLET (FP) PO SCH (09:54)
[2017-11-19] MEDS: amLODIPine BESYLATE 10 MG TABLET (FP) PO SCH (09:54)
[2017-11-19] MEDS: MINERAL OIL/PETROLAT/WATER TOPICAL CREAM 113 GM JAR TP SCH ×2 (09:54→21:36)
[2017-11-19] MEDS: NICOTINE 14 MG/24 HOURS TOPICAL PATCH TD SCH (09:54)
[2017-11-19] MEDS: ACETAMINOPHEN 325 MG TABLET (FP) PO PRN (14:51)
[2017-11-19] MEDS: SENNOSIDES 8.6MG TABLET (FP) PO SCH (21:36)
[2017-11-19] MEDS: ATORVASTATIN CA 40 MG TABLET (FP) PO SCH (21:37)
[2017-11-19] MEDS: THIAMINE HCL 100 MG TABLET (FP) PO SCH (21:37)
[2017-11-20] MEDS: NEOMYCIN/POLYMYXN/HC OTIC SOLUTION 10 ML BOTTLE AU SCH ×3 (06:29→18:00)
[2017-11-20] MEDS: P-EPHED 60MG/TRIPROLIDI 2.5MG TABLET PO PRN ×3 (06:31→21:26)
[2017-11-20] MEDS: guaiFENesin/D-METHORPHAN HB 10 ML UNIT-DOSE CUPS PO PRN ×3 (06:31→21:26)
[2017-11-20] MEDS: ASPIRIN 325 MG ENTERIC COATED TABLET (FP) PO SCH (09:59)
[2017-11-20] MEDS: PRENATAL VITAMINS W/ FOLIC ACID TABLET (FP) PO SCH (09:59)
[2017-11-20] MEDS: amLODIPine BESYLATE 10 MG TABLET (FP) PO SCH (09:59)
[2017-11-20] MEDS: ACETAMINOPHEN 325 MG TABLET (FP) PO PRN (10:00)
[2017-11-20] MEDS: MINERAL OIL/PETROLAT/WATER TOPICAL CREAM 113 GM JAR TP SCH ×2 (10:02→21:27)
[2017-11-20] MEDS: NICOTINE 14 MG/24 HOURS TOPICAL PATCH TD SCH (10:02)
[2017-11-20] MEDS ORDERED: PT OWN MED DRAWER 7, Y5N ONE (15:25)
--- NOTE | 2017-11-20 15:37 | PN ---
[facility] Progress Note Note: Vital Signs Temperature 98.4 F 11/20/17 10:00 Pulse Rate 97 H 11/20/17 10:00 Respiratory Rate 20 11/20/17 10:00 Blood Pressure 127/79 11/20/17 10:00 O2 Sat by Pulse Oximetry (%) c/o of bump under left armpit - AOx3 no distress - + nodule left under arm - full ROM ambulating in the unit -folliculitis plan: warm compress bacitracin BID TP increase fluids continue to monitor
[2017-11-20] MEDS: SENNOSIDES 8.6MG TABLET (FP) PO SCH (21:26)
[2017-11-20] MEDS: THIAMINE HCL 100 MG TABLET (FP) PO SCH (21:27)
[2017-11-20] MEDS: ATORVASTATIN CA 40 MG TABLET (FP) PO SCH (21:27)
[2017-11-20] MEDS: BACITRACIN 0.9 GM PACKET TP SCH (21:27)
[2017-11-21] MEDS: amLODIPine BESYLATE 10 MG TABLET (FP) PO SCH (10:06)
[2017-11-21] MEDS: PRENATAL VITAMINS W/ FOLIC ACID TABLET (FP) PO SCH (10:06)
[2017-11-21] MEDS: ASPIRIN 325 MG ENTERIC COATED TABLET (FP) PO SCH (10:06)
[2017-11-21] MEDS: NICOTINE 14 MG/24 HOURS TOPICAL PATCH TD SCH (10:06)
[2017-11-21] MEDS: BACITRACIN 0.9 GM PACKET TP SCH ×2 (10:06→21:45)
[2017-11-21] MEDS: guaiFENesin/D-METHORPHAN HB 10 ML UNIT-DOSE CUPS PO PRN ×2 (10:06→20:26)
[2017-11-21] MEDS: MINERAL OIL/PETROLAT/WATER TOPICAL CREAM 113 GM JAR TP SCH ×2 (10:08→21:45)
[2017-11-21] MEDS: P-EPHED 60MG/TRIPROLIDI 2.5MG TABLET PO PRN (20:26)
[2017-11-21] MEDS: SENNOSIDES 8.6MG TABLET (FP) PO SCH (21:44)
[2017-11-21] MEDS: THIAMINE HCL 100 MG TABLET (FP) PO SCH (21:44)
[2017-11-21] MEDS: ATORVASTATIN CA 40 MG TABLET (FP) PO SCH (21:45)
[2017-11-22] MEDS: BACITRACIN 0.9 GM PACKET TP SCH ×2 (10:05→21:28)
[2017-11-22] MEDS: PRENATAL VITAMINS W/ FOLIC ACID TABLET (FP) PO SCH (10:05)
[2017-11-22] MEDS: ACETAMINOPHEN 325 MG TABLET (FP) PO PRN ×2 (10:06→21:29)
[2017-11-22] MEDS: MINERAL OIL/PETROLAT/WATER TOPICAL CREAM 113 GM JAR TP SCH ×2 (10:06→21:30)
[2017-11-22] MEDS: ASPIRIN 325 MG ENTERIC COATED TABLET (FP) PO SCH (10:06)
[2017-11-22] MEDS: amLODIPine BESYLATE 10 MG TABLET (FP) PO SCH (10:06)
[2017-11-22] MEDS: NICOTINE 14 MG/24 HOURS TOPICAL PATCH TD SCH (10:07)
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
[2017-11-22] MEDS: MENTHOL/PHENOL 1 EACH UD MM PRN (16:52)
[2017-11-22] MEDS: THIAMINE HCL 100 MG TABLET (FP) PO SCH (21:28)
[2017-11-22] MEDS: SENNOSIDES 8.6MG TABLET (FP) PO SCH (21:29)
[2017-11-23] MEDS ORDERED: PT OWN MED DRAWER 7, Y5N ONE ×2 (08:48→22:18)
[2017-11-23] MEDS: PRENATAL VITAMINS W/ FOLIC ACID TABLET (FP) PO SCH (09:54)
[2017-11-23] MEDS: NICOTINE 14 MG/24 HOURS TOPICAL PATCH TD SCH (09:54)
[2017-11-23] MEDS: ASPIRIN 325 MG ENTERIC COATED TABLET (FP) PO SCH (09:54)
[2017-11-23] MEDS: BACITRACIN 0.9 GM PACKET TP SCH ×2 (09:54→21:08)
[2017-11-23] MEDS: MINERAL OIL/PETROLAT/WATER TOPICAL CREAM 113 GM JAR TP SCH ×2 (09:54→21:09)
[2017-11-23] MEDS: COLLOIDAL OATMEAL 1 BAR EACH TP PRN (09:55)
[2017-11-23] MEDS: amLODIPine BESYLATE 10 MG TABLET (FP) PO SCH (09:55)
[2017-11-23] MEDS: ACETAMINOPHEN 325 MG TABLET (FP) PO PRN (09:55)
[2017-11-23] MEDS: MENTHOL/PHENOL 1 EACH UD MM PRN ×2 (09:56→21:09)
[2017-11-23] MEDS: THIAMINE HCL 100 MG TABLET (FP) PO SCH (21:08)
[2017-11-23] MEDS: SENNOSIDES 8.6MG TABLET (FP) PO SCH (21:08)
[2017-11-23] MEDS: ALBUTEROL SO4 8 GM HFA INHALER IH PRN (22:19)
[2017-11-24] MEDS: amLODIPine BESYLATE 10 MG TABLET (FP) PO SCH (09:55)
[2017-11-24] MEDS: ASPIRIN 325 MG ENTERIC COATED TABLET (FP) PO SCH (09:55)
[2017-11-24] MEDS: PRENATAL VITAMINS W/ FOLIC ACID TABLET (FP) PO SCH (09:55)
[2017-11-24] MEDS: BACITRACIN 0.9 GM PACKET TP SCH ×2 (09:55→21:30)
[2017-11-24] MEDS: ACETAMINOPHEN 325 MG TABLET (FP) PO PRN ×2 (09:55→21:30)
[2017-11-24] MEDS: MINERAL OIL/PETROLAT/WATER TOPICAL CREAM 113 GM JAR TP SCH ×2 (09:56→21:30)
[2017-11-24] MEDS: NICOTINE 14 MG/24 HOURS TOPICAL PATCH TD SCH (09:56)
[2017-11-24] MEDS: guaiFENesin/D-METHORPHAN HB 10 ML UNIT-DOSE CUPS PO PRN ×2 (15:15→21:30)
[2017-11-24] MEDS ORDERED: PT OWN MED DRAWER 7, Y5N ONE (18:41)
[2017-11-24] MEDS: THIAMINE HCL 100 MG TABLET (FP) PO SCH (21:30)
[2017-11-24] MEDS: SENNOSIDES 8.6MG TABLET (FP) PO SCH (21:30)
[2017-11-25] MEDS: ACETAMINOPHEN 325 MG TABLET (FP) PO PRN ×3 (06:28→21:39)
[2017-11-25] MEDS: amLODIPine BESYLATE 10 MG TABLET (FP) PO SCH (09:53)
[2017-11-25] MEDS: MINERAL OIL/PETROLAT/WATER TOPICAL CREAM 113 GM JAR TP SCH ×2 (09:53→21:40)
[2017-11-25] MEDS: PRENATAL VITAMINS W/ FOLIC ACID TABLET (FP) PO SCH (09:53)
[2017-11-25] MEDS: BACITRACIN 0.9 GM PACKET TP SCH ×2 (09:53→21:40)
[2017-11-25] MEDS: ASPIRIN 325 MG ENTERIC COATED TABLET (FP) PO SCH (09:53)
[2017-11-25] MEDS: NICOTINE 14 MG/24 HOURS TOPICAL PATCH TD SCH (09:53)
[2017-11-25] MEDS: ALBUTEROL SO4 8 GM HFA INHALER IH PRN (09:54)
[2017-11-25] MEDS: guaiFENesin/D-METHORPHAN HB 10 ML UNIT-DOSE CUPS PO PRN (14:26)
[2017-11-25] MEDS: SENNOSIDES 8.6MG TABLET (FP) PO SCH (21:38)
[2017-11-25] MEDS: THIAMINE HCL 100 MG TABLET (FP) PO SCH (21:38)
[2017-11-26] MEDS: ACETAMINOPHEN 325 MG TABLET (FP) PO PRN ×2 (06:23→21:34)
[2017-11-26] MEDS: guaiFENesin/D-METHORPHAN HB 10 ML UNIT-DOSE CUPS PO PRN ×2 (09:54→16:43)
[2017-11-26] MEDS: ASPIRIN 325 MG ENTERIC COATED TABLET (FP) PO SCH (09:55)
[2017-11-26] MEDS: MINERAL OIL/PETROLAT/WATER TOPICAL CREAM 113 GM JAR TP SCH ×2 (09:55→22:38)
[2017-11-26] MEDS: NICOTINE 14 MG/24 HOURS TOPICAL PATCH TD SCH (09:55)
[2017-11-26] MEDS: BACITRACIN 0.9 GM PACKET TP SCH ×2 (09:55→22:38)
[2017-11-26] MEDS: amLODIPine BESYLATE 10 MG TABLET (FP) PO SCH (09:55)
[2017-11-26] MEDS: PRENATAL VITAMINS W/ FOLIC ACID TABLET (FP) PO SCH (09:55)
[2017-11-26] MEDS: P-EPHED 60MG/TRIPROLIDI 2.5MG TABLET PO PRN (16:43)
[2017-11-26] MEDS: THIAMINE HCL 100 MG TABLET (FP) PO SCH (21:32)
[2017-11-26] MEDS: SENNOSIDES 8.6MG TABLET (FP) PO SCH (21:32)
[2017-11-27] MEDS: ACETAMINOPHEN 325 MG TABLET (FP) PO PRN ×3 (06:56→21:29)
[2017-11-27] MEDS: amLODIPine BESYLATE 10 MG TABLET (FP) PO SCH (09:51)
[2017-11-27] MEDS: MINERAL OIL/PETROLAT/WATER TOPICAL CREAM 113 GM JAR TP SCH ×2 (09:51→21:30)
[2017-11-27] MEDS: PRENATAL VITAMINS W/ FOLIC ACID TABLET (FP) PO SCH (09:51)
[2017-11-27] MEDS: NICOTINE 14 MG/24 HOURS TOPICAL PATCH TD SCH (09:51)
[2017-11-27] MEDS: BACITRACIN 0.9 GM PACKET TP SCH ×2 (09:51→21:28)
[2017-11-27] MEDS: ASPIRIN 325 MG ENTERIC COATED TABLET (FP) PO SCH (09:51)
[2017-11-27] MEDS: THIAMINE HCL 100 MG TABLET (FP) PO SCH (21:29)
[2017-11-27] MEDS: SENNOSIDES 8.6MG TABLET (FP) PO SCH (21:29)
[2017-11-28] MEDS ORDERED: PT OWN MED DRAWER 7, Y5N ONE (08:59)
[2017-11-28] MEDS: PRENATAL VITAMINS W/ FOLIC ACID TABLET (FP) PO SCH (10:11)
[2017-11-28] MEDS: ASPIRIN 325 MG ENTERIC COATED TABLET (FP) PO SCH (10:11)
[2017-11-28] MEDS: BACITRACIN 0.9 GM PACKET TP SCH ×2 (10:11→21:24)
[2017-11-28] MEDS: amLODIPine BESYLATE 10 MG TABLET (FP) PO SCH (10:11)
[2017-11-28] MEDS: ACETAMINOPHEN 325 MG TABLET (FP) PO PRN ×3 (10:12→21:26)
[2017-11-28] MEDS: ALBUTEROL SO4 8 GM HFA INHALER IH PRN ×2 (10:13→21:25)
[2017-11-28] MEDS: NICOTINE 14 MG/24 HOURS TOPICAL PATCH TD SCH (10:38)
[2017-11-28] MEDS: MINERAL OIL/PETROLAT/WATER TOPICAL CREAM 113 GM JAR TP SCH ×2 (10:38→21:24)
[2017-11-28] MEDS: THIAMINE HCL 100 MG TABLET (FP) PO SCH (21:25)
[2017-11-28] MEDS: SENNOSIDES 8.6MG TABLET (FP) PO SCH (21:25)
[2017-11-29] MEDS ORDERED: PT OWN MED DRAWER 7, Y5N ONE (09:16)
[2017-11-29] MEDS: ACETAMINOPHEN 325 MG TABLET (FP) PO PRN ×2 (10:02→21:53)
[2017-11-29] MEDS: COLLOIDAL OATMEAL 1 BAR EACH TP PRN (10:02)
[2017-11-29] MEDS: amLODIPine BESYLATE 10 MG TABLET (FP) PO SCH (10:02)
[2017-11-29] MEDS: PRENATAL VITAMINS W/ FOLIC ACID TABLET (FP) PO SCH (10:02)
[2017-11-29] MEDS: ASPIRIN 325 MG ENTERIC COATED TABLET (FP) PO SCH (10:02)
[2017-11-29] MEDS: ALBUTEROL SO4 8 GM HFA INHALER IH PRN (10:03)
[2017-11-29] MEDS: NICOTINE 14 MG/24 HOURS TOPICAL PATCH TD SCH (10:03)
[2017-11-29] MEDS: MINERAL OIL/PETROLAT/WATER TOPICAL CREAM 113 GM JAR TP SCH ×2 (10:03→21:54)
[2017-11-29] MEDS: BACITRACIN 0.9 GM PACKET TP SCH ×2 (10:04→21:54)
[2017-11-29] MEDS: THIAMINE HCL 100 MG TABLET (FP) PO SCH (21:53)
[2017-11-29] MEDS: SENNOSIDES 8.6MG TABLET (FP) PO SCH (21:54)
[2017-11-30] MEDS: MINERAL OIL/PETROLAT/WATER TOPICAL CREAM 113 GM JAR TP SCH ×2 (10:07→21:13)
[2017-11-30] MEDS: NICOTINE 14 MG/24 HOURS TOPICAL PATCH TD SCH (10:07)
[2017-11-30] MEDS: PRENATAL VITAMINS W/ FOLIC ACID TABLET (FP) PO SCH (10:07)
[2017-11-30] MEDS: BACITRACIN 0.9 GM PACKET TP SCH ×2 (10:07→21:13)
[2017-11-30] MEDS: amLODIPine BESYLATE 10 MG TABLET (FP) PO SCH (10:07)
[2017-11-30] MEDS: ASPIRIN 325 MG ENTERIC COATED TABLET (FP) PO SCH (10:07)
[2017-11-30] MEDS ORDERED: PT OWN MED DRAWER 7, Y5N ONE (10:08)
[2017-11-30] MEDS: ACETAMINOPHEN 325 MG TABLET (FP) PO PRN ×2 (10:10→21:12)
[2017-11-30] MEDS: ALBUTEROL SO4 8 GM HFA INHALER IH PRN (10:11)
[2017-11-30] MEDS: THIAMINE HCL 100 MG TABLET (FP) PO SCH (21:12)
[2017-11-30] MEDS: SENNOSIDES 8.6MG TABLET (FP) PO SCH (21:13)
[2017-12-01] MEDS: amLODIPine BESYLATE 10 MG TABLET (FP) PO SCH (10:09)
[2017-12-01] MEDS: ACETAMINOPHEN 325 MG TABLET (FP) PO PRN ×2 (10:09→21:42)
[2017-12-01] MEDS: ASPIRIN 325 MG ENTERIC COATED TABLET (FP) PO SCH (10:09)
[2017-12-01] MEDS: PRENATAL VITAMINS W/ FOLIC ACID TABLET (FP) PO SCH (10:09)
[2017-12-01] MEDS: BACITRACIN 0.9 GM PACKET TP SCH ×2 (10:10→21:44)
[2017-12-01] MEDS: MINERAL OIL/PETROLAT/WATER TOPICAL CREAM 113 GM JAR TP SCH ×2 (10:10→21:43)
[2017-12-01] MEDS: NICOTINE 14 MG/24 HOURS TOPICAL PATCH TD SCH (10:10)
[2017-12-01] MEDS: THIAMINE HCL 100 MG TABLET (FP) PO SCH (21:42)
[2017-12-01] MEDS: SENNOSIDES 8.6MG TABLET (FP) PO SCH (21:43)
[2017-12-02] MEDS ORDERED: PT OWN MED DRAWER 7, Y5N ONE (08:39)
[2017-12-02] MEDS: BACITRACIN 0.9 GM PACKET TP SCH ×2 (09:48→21:11)
[2017-12-02] MEDS: PRENATAL VITAMINS W/ FOLIC ACID TABLET (FP) PO SCH (09:48)
[2017-12-02] MEDS: MINERAL OIL/PETROLAT/WATER TOPICAL CREAM 113 GM JAR TP SCH ×2 (09:48→21:11)
[2017-12-02] MEDS: ALBUTEROL SO4 8 GM HFA INHALER IH PRN (09:48)
[2017-12-02] MEDS: amLODIPine BESYLATE 10 MG TABLET (FP) PO SCH (09:48)
[2017-12-02] MEDS: ASPIRIN 325 MG ENTERIC COATED TABLET (FP) PO SCH (09:48)
[2017-12-02] MEDS: NICOTINE 14 MG/24 HOURS TOPICAL PATCH TD SCH (09:49)
[2017-12-02] MEDS: ACETAMINOPHEN 325 MG TABLET (FP) PO PRN ×2 (09:49→21:12)
[2017-12-02] MEDS: THIAMINE HCL 100 MG TABLET (FP) PO SCH (21:11)
[2017-12-02] MEDS: SENNOSIDES 8.6MG TABLET (FP) PO SCH (21:11)
[2017-12-02] MEDS: COLLOIDAL OATMEAL 1 BAR EACH TP PRN (21:13)
--- NOTE | 2017-12-03 07:54 | PN ---
Psychiatric Progress Note Vital Signs: Vital Signs Period Temp Pulse Resp BP Sys/Lindquist Pulse Ox Last 24 Hr 98.2 F 85-95 18-20 119-133/84-84 Date of Session: 12/03/17 Chief Complaint:: Discharge Note HPI: Patient addressing Alcohol, Sedative and Cannabis Dependence comorbid with Nicotine Dependence and Posttraumatic Stress Disorder ROS: ASthma, GERD, HTN, HLD Current Medications: Active Medications Generic Name Dose Route Start Last Admin Trade Name Freq PRN Reason Stop Dose Admin Acetaminophen 650 mg 11/10/17 13:11 12/02/17 21:12 Tylenol - PO 650 mg Q4H PRN Administration FEVER Albuterol Sulfate 2 puff 11/10/17 13:12 12/02/17 09:48 Ventolin Hfa Inhaler - IH 2 puff Q4H PRN Administration SHORT OF BREATH/WHEEZING Amlodipine Besylate 10 mg 11/11/17 10:00 12/02/17 09:48 Norvasc - PO 10 mg DAILY BARRIE Administration Aspirin 325 mg 11/11/17 14:31 12/02/17 09:48 Ecotrin - PO 325 mg DAILY BARRIE Administration Bacitracin 0.9 gm 11/20/17 22:00 12/02/17 21:11 Bacitracin - TP Not Given BID BARRIE Colloidal Oatmeal 1 applic 11/13/17 15:16 12/02/17 21:13 Aveeno Soap - TP 1 applic DAILY PRN Administration HYGEINE Eucalyptus/Menthol/Phenol/Sorbitol 1 each 11/10/17 13:11 11/23/17 21:09 Cepastat Lozenge - MM 1 each Q4H PRN Administration SORE THROAT Guaifenesin 10 ml 11/10/17 13:11 11/26/17 16:43 Robitussin Dm - PO 10 ml Q6H PRN Administration COUGH Loperamide HCl 4 mg 11/10/17 13:11 Imodium - PO Q6H PRN DIARRHEA Melatonin 5 mg 11/10/17 22:00 Melatonin PO HS PRN INSOMNIA Multi-Ingredient Lotion 1 applic 11/13/17 22:00 12/02/17 21:11 Eucerin (Small Jar) - TP Not Given BID BARRIE Nicotine 14 mg 11/11/17 10:00 12/02/17 09:49 Nicoderm Patch - TD Not Given DAILY BARRIE Nicotine Polacrilex 2 mg 11/10/17 13:11 Nicorette Gum - BUC Q2H PRN NICOTINE REPLACEMENT RX Multivit/Folic Acid/Iron 1 tab 11/11/17 10:00 12/02/17 09:48 Vitamins (Sjr) - PO 1 tab DAILY BARRIE Administration Pseudoephedrine/Triprolidine 1 combo 11/10/17 13:11 11/26/17 16:43 Actifed - PO 1 combo TID PRN Administration NASAL CONGESTION Senna 2 tab 11/13/17 22:00 12/02/17 21:11 Senna - PO 2 tab HS BARRIE Administration Thiamine HCl 100 mg 11/10/17 22:00 12/02/17 21:11 Vitamin B1 - PO 100 mg HS BARRIE Administration Current Side Effect: No Lab tests ordered: Yes Lab tests reviewed: Yes Provider note:: Patient will complete this program on 12/04/17. He has met his treatment goals and will continue [facility] Told sports writer that from his participation in this program, he has learned the importance of staying focus and making meetings. He is stable for discharge on 12/04/17 Total face to face time:: 35 Mental Status Exam - Mental Status Exam Alert and Oriented to: Time, Place, Person Cognitive Function: Fair Patient Appearance: Well Groomed Mood: Hopeful, Euthymic Affect: Appropriate Patient Behavior: Cooperative Speech Pattern: Clear Voice Loudness: Normal Thought Process: Intact, Goal Oriented Thought Disorder: Not Present Hallucinations: Denies Suicidal Ideation: Denies Homicidal Ideation: Denies Insight/Judgement: Fair Sleep: Fair Appetite: Good Muscle strength/Tone: Normal Gait/Station: Normal Psychiatric Treatment Plan - Problem List (1) Alcohol dependence Current Visit: No (2) Sedative hypnotic or anxiolytic dependence Current Visit: Yes (3) Cannabis dependence Current Visit: No (4) Nicotine dependence Current Visit: No Qualifiers: Nicotine product type: cigarettes Substance use status: in withdrawal Qualified Code(s): F17.213 - Nicotine dependence, cigarettes, with withdrawal (5) Posttraumatic stress disorder Current Visit: No (6) Substance-induced anxiety disorder Current Visit: Yes (7) History of live Current Visit: No (8) Status post skin graft Current Visit: No (9) Asthma Current Visit: No Qualifiers: Asthma severity: mild Asthma persistence: intermittent Asthma complication type: with status asthmaticus Qualified Code(s): J45.22 - Mild intermittent asthma with status asthmaticus (10) GERD (gastroesophageal reflux disease) Current Visit: No Qualifiers: Esophagitis presence: without esophagitis Qualified Code(s): K21.9 - Gastro -esophageal reflux disease without esophagitis (11) HTN (hypertension) Current Visit: No Qualifiers: Hypertension type: essential hypertension Qualified Code(s): I10 - Essential (primary) hypertension (12) Hypercholesterolemia Current Visit: No Initial treatment plan: Patient will be discharged tomorrow and refer to [facility] for lashanda term residential treatment
[2017-12-03] MEDS: ASPIRIN 325 MG ENTERIC COATED TABLET (FP) PO SCH (09:40)
[2017-12-03] MEDS: amLODIPine BESYLATE 10 MG TABLET (FP) PO SCH (09:40)
[2017-12-03] MEDS: MINERAL OIL/PETROLAT/WATER TOPICAL CREAM 113 GM JAR TP SCH ×2 (09:40→22:01)
[2017-12-03] MEDS: NICOTINE 14 MG/24 HOURS TOPICAL PATCH TD SCH (09:40)
[2017-12-03] MEDS: PRENATAL VITAMINS W/ FOLIC ACID TABLET (FP) PO SCH (09:40)
[2017-12-03] MEDS: BACITRACIN 0.9 GM PACKET TP SCH ×2 (09:40→22:01)
[2017-12-03] MEDS: ACETAMINOPHEN 325 MG TABLET (FP) PO PRN ×3 (09:41→22:02)
[2017-12-03] MEDS ORDERED: PT OWN MED DRAWER 7, Y5N ONE (19:54)
[2017-12-03] MEDS: SENNOSIDES 8.6MG TABLET (FP) PO SCH (22:01)
[2017-12-03] MEDS: THIAMINE HCL 100 MG TABLET (FP) PO SCH (22:01)
[2017-12-04] MEDS: ACETAMINOPHEN 325 MG TABLET (FP) PO PRN (05:58)
[2017-12-04 07:01] VITALS: BP 129/80; PULSE 88; TEMP 98
== END 2017-12-04 07:00 | disposition home or self-care (01) | DRG 772 ==
LOC: YASAS 12:20 → Y3W 12:21
PROVIDERS: ADMIT Psychiatry & Neurology Psychiatry; ATTEND Psychiatry & Neurology Psychiatry
PROC: HZ42ZZZ Group Counseling for Substance Abuse Treatment, Cognitive-Behavioral (ICD-10-PCS; principal; 2017-11-10)
DX: F10.20 Alcohol dependence, uncomplicated (principal); F13.20 Sedative, hypnotic or anxiolytic dependence, uncomplicated; F12.20 Cannabis dependence, uncomplicated; F17.213 Nicotine dependence, cigarettes, with withdrawal; F43.10 Post-traumatic stress disorder, unspecified; F19.280 Other psychoactive substance dependence with psychoactive substance-induced anxiety disorder; I10 Essential (primary) hypertension; J45.22 Mild intermittent asthma with status asthmaticus; K21.9 Gastro-esophageal reflux disease without esophagitis; E78.5 Hyperlipidemia, unspecified; L73.9 Follicular disorder, unspecified; H60.503 Unspecified acute noninfective otitis externa, bilateral; K59.00 Constipation, unspecified; L98.8 Other specified disorders of the skin and subcutaneous tissue

== ENCOUNTER 2018-01-30 13:00 | Inpatient (IN) | payer OTHER ==
[2018-01-30 14:19] VITALS: BMI 38.2
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
[2018-01-30] MEDS ORDERED: ALBUTEROL SO4 8 GM HFA INHALER IH PRN (17:34)
[2018-01-30] MEDS ORDERED: ALBUTEROL SO4 0.083% IH SOL 2.5 MG/3 ML VIAL.NEB. NEB PRN (17:35)
[2018-01-30] MEDS ORDERED: LOPERAMIDE HCL 2 MG CAPSULE PO PRN (17:40)
[2018-01-30] MEDS ORDERED: guaiFENesin/D-METHORPHAN HB 10 ML UNIT-DOSE CUPS PO PRN (17:40)
[2018-01-30] MEDS ORDERED: chlordiazePOXIDE HCL 25 MG CAPSULE PO PRN (17:40)
[2018-01-30] MEDS ORDERED: MAG HYDROX/AL HYDROX/SIMETH 30 ML UNIT-DOSE CUP PO PRN (17:40)
[2018-01-30] MEDS ORDERED: MENTHOL/PHENOL 1 EACH UD MM PRN (17:40)
[2018-01-30] MEDS ORDERED: NICOTINE POLACRILEX 2 MG GUM BC PRN (17:40)
[2018-01-30] MEDS ORDERED: MAGNESIUM HYDROX 2400MG/30ML ORAL SUSPENSION 30 ML CUP PO PRN (17:40)
[2018-01-30] MEDS ORDERED: IBUPROFEN 400 MG TABLET (FP) PO PRN (17:40)
[2018-01-30] MEDS ORDERED: P-EPHED 60MG/TRIPROLIDI 2.5MG TABLET PO PRN (17:40)
[2018-01-30] MEDS ORDERED: MAGNESIUM CITRATE 300 ML BOTTLE PO PRN (17:40)
[2018-01-30] MEDS: FLUTICASONE PROP 0.05% 16 GM NASAL SPRAY NS SCH (20:46)
[2018-01-30] MEDS ORDERED: MELATONIN 5 MG TABLETS PO PRN (22:00)
[2018-01-30] MEDS: ATORVASTATIN CA 40 MG TABLET (FP) PO SCH (22:08)
[2018-01-30] MEDS: ACETAMINOPHEN 325 MG TABLET (FP) PO PRN (22:08)
[2018-01-30] MEDS: chlordiazePOXIDE HCL 25 MG CAPSULE PO SCH (22:08)
[2018-01-30] MEDS: THIAMINE HCL 100 MG TABLET (FP) PO SCH (22:08)
[2018-01-31] MEDS: chlordiazePOXIDE HCL 25 MG CAPSULE PO SCH ×4 (06:00→22:25)
--- NOTE | 2018-01-31 08:53 | CONSULT ---
[facility] Psychiatric Consult - Data Date of interview: 01/31/18 Admission source: [facility] Identifying data: This is 52 years old male, single father of three, homeless, unemployed, on PA, with no psychiatric hospitalizatiojn history with history of PTSD, Hisotry of Alcohol, Xanax, Cannabis and Nicotine dependence. Patient is reporting Alcohol withdrawal symptoms and seeking Detox. This is one of multiple admissions but keeps relapsing. Last detox from [facility] one month ago. Substance Abuse History: - Smoking Cessation. Smoking history: Current every day smoker. Have you smoked in the past 12 months: Yes. Aproximately how many cigarettes per day: 20. Cigars Per Day: 0. Hx Chewing Tobacco Use: No. Initiated information on smoking cessation: Yes. 'Breaking Loose' booklet given : 01/30/18. - Substance & Tx. History. Hx Alcohol Use: Yes. Hx Substance Use : Yes. Substance Use Type: Alcohol, Tranquilizers. Hx Substance Use Treatment : Yes ([facility] detox one month ago ). - Substances Abused. Alcohol. Route: Oral. Frequency: Daily. Amount used: LIQUOR- 3 PINTS, BEER- 2 SIX PACK. Age of first use: 11. Date of Last Use: 01/30/18. Alprazolam (Xanax). Route: Oral. Frequency: Daily. Amount used: 2mg. Age of first use: 51. Date of Last Use: 01/28/18 Medical History: Asthma, Hypercholeterolemia, GERD, HTN, Syncope history, Psychiatric History: Patient reports history of anxiety and depression, denies suicidal and homicidal history, reports history of PTSD. Reports no medications taking prior to admission. Physical/Sexual Abuse/Trauma History: Denies Additional Comment: Observation. Detox Unit Care Protocol Mental Status Exam - Mental Status Exam Alert and Oriented to: Person Cognitive Function: Fair Mood: Sad Affect: Mood Congruent Patient Behavior: Cooperative Speech Pattern: Delayed Voice Loudness: Mildly Soft/Quiet Thought Process: Circumstantial Thought Disorder: Being Controlled Hallucinations: Denies Suicidal Ideation: Denies Homicidal Ideation: Denies Insight/Judgement: Fair Sleep: Difficulty falling asleep Appetite: Fair Muscle strength/Tone: Mild Hypotonicity Gait/Station: Shuffling Additional Comments: Observation. Detox Unit Care Protocol Psychiatric Findings - Problem List ([place] 1, 2,3) (1) Alcohol dependence with withdrawal Current Visit: Yes Status: Acute Qualifiers: Complication of substance-induced condition: uncomplicated Qualified Code(s ): F10.230 - Alcohol dependence with withdrawal, uncomplicated (2) Sedative hypnotic or anxiolytic dependence Current Visit: Yes Status: Acute (3) Asthma Current Visit: Yes Status: Chronic Qualifiers: Asthma severity: mild Asthma persistence: intermittent Asthma complication type: with status asthmaticus Qualified Code(s): J45.22 - Mild intermittent asthma with status asthmaticus (4) Cannabis dependence, continuous Current Visit: Yes Status: Chronic (5) GERD (gastroesophageal reflux disease) Current Visit: Yes Status: Chronic Qualifiers: Esophagitis presence: without esophagitis Qualified Code(s): K21.9 - Gastro -esophageal reflux disease without esophagitis (6) HTN (hypertension) Current Visit: Yes Status: Chronic Qualifiers: Hypertension type: essential hypertension Qualified Code(s): I10 - Essential (primary) hypertension (7) Hypercholesterolemia Current Visit: Yes Status: Chronic (8) Nicotine dependence Current Visit: Yes Status: Chronic Qualifiers: Nicotine product type: cigarettes Substance use status: in withdrawal Qualified Code(s): F17.213 - Nicotine dependence, cigarettes, with withdrawal (9) Alcohol dependence Current Visit: No Status: Acute (10) Benzodiazepine dependence Current Visit: No Status: Acute (11) Cannabis dependence Current Visit: No Status: Acute (12) Substance-induced anxiety disorder Current Visit: No Status: Acute (13) Syncope Current Visit: No Status: Acute (14) Posttraumatic stress disorder Current Visit: No Status: Chronic (15) History of live Current Visit: No Status: Suspected (16) Status post skin graft Current Visit: No Status: Suspected - Initial Treatment Plan Initial Treatment Plan: Observation. Detox Unit Care Protocol
--- NOTE | 2018-01-31 09:50 | EKG ---
Test Reason : Blood Pressure : / mmHG Vent. Rate : 083 BPM Atrial Rate : 083 BPM P-R Int : 146 ms QRS Dur : 086 ms QT Int : 394 ms P-R-T Axes : 072 054 049 degrees QTc Int : 462 ms NORMAL SINUS RHYTHM NORMAL ECG WHEN COMPARED WITH ECG OF 07-NOV-2017 14:43, NO SIGNIFICANT CHANGE WAS FOUND Confirmed by STEPHANIE MOSS MD ([id number]) on 01/31/2018 9:50:18 AM Referred By: Confirmed By:STEPHANIE MOSS MD
[2018-01-31 10:09] LABS: HEMATOCRIT 38.1 % (35.4-49); HEMOGLOBIN 11.9 GM/dL (11.7-16.9); MCHC 31.3 g/dl (32.0-35.9); MEAN CELL VOLUME 86.5 fl (80-96); MEAN PLT VOLUME 8.1 fl (7.5-11.1); PLATELET COUNT 266 K/MM3 (134-434); RBC 4.41 M/mm3 (4.00-5.60); WHITE BLOOD COUNT 6.2 K/mm3 (4.0-10.0)
[2018-01-31] MEDS: ASPIRIN 325 MG TABLET PO SCH (10:32)
[2018-01-31] MEDS: amLODIPine BESYLATE 10 MG TABLET (FP) PO SCH (10:32)
[2018-01-31] MEDS: NICOTINE 14 MG/24 HOURS TOPICAL PATCH TD SCH (10:32)
[2018-01-31] MEDS: PRENATAL VITAMINS W/ FOLIC ACID TABLET (FP) PO SCH (10:32)
[2018-01-31] MEDS: FLUTICASONE PROP 0.05% 16 GM NASAL SPRAY NS SCH (10:33)
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
[2018-01-31 10:51] LABS: ALBUMIN 3.4 g/dl (3.4-5.0); ALK PHOS 74 U/L (45-117); ANION GAP 8 MMOL/L (8-16); BILIRUBIN,TOTAL 0.7 mg/dL (0.2-1); BLOOD UREA NITROGEN 14 mg/dL (7-18); CHLORIDE 105 mmol/L (98-107); CO2 27 mmol/L (21-32); CREATININE 0.9 mg/dL (0.55-1.3); GLUCOSE,RANDOM 96 mg/dL (74-106); POTASSIUM 3.9 mmol/L (3.5-5.1); SGOT/AST 30 U/L (15-37); SGPT/ALT 33 U/L (13-61); SODIUM 140 mmol/L (136-145); TOT PROT 6.7 g/dl (6.4-8.2)
[2018-01-31] MEDS: RANITIDINE HCL 150 MG TABLET (FP) PO SCH ×2 (12:33→22:25)
[2018-01-31] MEDS: ATORVASTATIN CA 40 MG TABLET (FP) PO SCH (22:25)
[2018-01-31] MEDS: THIAMINE HCL 100 MG TABLET (FP) PO SCH (22:26)
[2018-02-01] MEDS: chlordiazePOXIDE HCL 25 MG CAPSULE PO SCH ×3 (06:03→17:50)
[2018-02-01] MEDS: PRENATAL VITAMINS W/ FOLIC ACID TABLET (FP) PO SCH (10:52)
[2018-02-01] MEDS: FLUTICASONE PROP 0.05% 16 GM NASAL SPRAY NS SCH (10:53)
[2018-02-01] MEDS: amLODIPine BESYLATE 10 MG TABLET (FP) PO SCH (10:53)
[2018-02-01] MEDS: ASPIRIN 325 MG TABLET PO SCH (10:53)
[2018-02-01] MEDS: RANITIDINE HCL 150 MG TABLET (FP) PO SCH ×2 (10:53→22:26)
[2018-02-01] MEDS: NICOTINE 14 MG/24 HOURS TOPICAL PATCH TD SCH (10:53)
[2018-02-01] MEDS: ACETAMINOPHEN 325 MG TABLET (FP) PO PRN ×2 (10:54→22:31)
--- NOTE | 2018-02-01 10:56 | PN ---
S CIWA - CIWA Score Nausea/Vomitin-No Nausea/No Vomiting Muscle Tremors: 3 Anxiety: 2 Agitation: 2 Paroxysmal Sweats: 1-Minimal Palms Moist Orientation: 0-Oriented Tacttile Disturbances: 0-None Auditory Disturbances: 0-None Visual Disturbances: 0-None Headache: 0-None Present CIWA-Ar Total Score: 8 BHS Progress Note (SOAP) Subjective: sweat tremor restlessness anxiety Objective: 02/01/18 10:55 Vital Signs Temperature 97.9 F 02/01/18 10:47 Pulse Rate 83 02/01/18 10:47 Respiratory Rate 18 02/01/18 10:47 Blood Pressure 145/79 02/01/18 10:47 O2 Sat by Pulse Oximetry (%) Laboratory Last Values WBC 6.2 K/mm3 (4.0-10.0) 01/31/18 07:30 RBC 4.41 M/mm3 (4.00-5.60) 01/31/18 07:30 Hgb 11.9 GM/dL (11.7-16.9) 01/31/18 07:30 Hct 38.1 % (35.4-49) 01/31/18 07:30 MCV 86.5 fl (80-96) 01/31/18 07:30 MCH 27.0 pg (25.7-33.7) 01/31/18 07:30 MCHC 31.3 g/dl (32.0-35.9) L 01/31/18 07:30 RDW 16.0 % (11.9-15.9) H 01/31/18 07:30 Plt Count 266 K/MM3 (134-434) D 01/31/18 07:30 MPV 8.1 fl (7.5-11.1) D 01/31/18 07:30 Sodium 140 mmol/L (136-145) 01/31/18 07:30 Potassium 3.9 mmol/L (3.5-5.1) 01/31/18 07:30 Chloride 105 mmol/L (98-107) 01/31/18 07:30 Carbon Dioxide 27 mmol/L (21-32) 01/31/18 07:30 Anion Gap 8 MMOL/L (8-16) 01/31/18 07:30 BUN 14 mg/dL (7-18) 01/31/18 07:30 Creatinine 0.9 mg/dL (0.55-1.3) 01/31/18 07:30 Creat Clearance w eGFR > 60 (>60) 01/31/18 07:30 Random Glucose 96 mg/dL (74-106) 01/31/18 07:30 Calcium 9.0 mg/dL (8.5-10.1) 01/31/18 07:30 Total Bilirubin 0.7 mg/dL (0.2-1) 01/31/18 07:30 AST 30 U/L (15-37) 01/31/18 07:30 ALT 33 U/L (13-61) 01/31/18 07:30 Alkaline Phosphatase 74 U/L (45-117) 01/31/18 07:30 Total Protein 6.7 g/dl (6.4-8.2) 01/31/18 07:30 Albumin 3.4 g/dl (3.4-5.0) 01/31/18 07:30 RPR Titer Nonreactive (NONREACTIVE) 01/31/18 07:30 lab noted Assessment: 02/01/18 10:56 withdrawal sx Plan: continue detox
[2018-02-01 18:14] LABS: URINE APPEARANCE CLEAR; URINE BILIRUBIN NEGATIVE (<2.0 mg/dL); URINE COLOR LTYELLOW; URINE GLUCOSE (UA) NEGATIVE (NEGATIVE); URINE KETONE NEGATIVE (NEGATIVE); URINE LEUK ESTERASE NEGATIVE (NEGATIVE); URINE NITRITE NEGATIVE (NEGATIVE); URINE PROTEIN NEGATIVE (NEGATIVE); URINE UROBILINOGEN NEGATIVE mg/dL (0.2-1.0)
[2018-02-01] MEDS: chlordiazePOXIDE 5 MG CAPSULE PO SCH (22:26)
[2018-02-01] MEDS: THIAMINE HCL 100 MG TABLET (FP) PO SCH (22:26)
[2018-02-01] MEDS: ATORVASTATIN CA 40 MG TABLET (FP) PO SCH (22:27)
[2018-02-02] MEDS: chlordiazePOXIDE 5 MG CAPSULE PO SCH ×2 (06:33→10:15)
[2018-02-02 10:01] VITALS: BP 133/77; PULSE 78; TEMP 98.1
[2018-02-02] MEDS: amLODIPine BESYLATE 10 MG TABLET (FP) PO SCH (10:13)
[2018-02-02] MEDS: PRENATAL VITAMINS W/ FOLIC ACID TABLET (FP) PO SCH (10:13)
[2018-02-02] MEDS: ASPIRIN 325 MG TABLET PO SCH (10:13)
[2018-02-02] MEDS: RANITIDINE HCL 150 MG TABLET (FP) PO SCH (10:13)
[2018-02-02] MEDS: NICOTINE 14 MG/24 HOURS TOPICAL PATCH TD SCH (10:14)
[2018-02-02] MEDS: ACETAMINOPHEN 325 MG TABLET (FP) PO PRN (10:15)
[2018-02-02] MEDS: FLUTICASONE PROP 0.05% 16 GM NASAL SPRAY NS SCH (10:16)
--- NOTE | 2018-02-02 13:20 | DS ---
[facility] Detox Discharge Summary Admission Date: 01/30/18 Discharge Date: 02/02/18 - History Present History: Alcohol Dependence - Physical Exam Results Vital Signs: Vital Signs Temperature 98.1 F 02/02/18 10:01 Pulse Rate 78 02/02/18 10:01 Respiratory Rate 18 02/02/18 10:01 Blood Pressure 133/77 02/02/18 10:01 O2 Sat by Pulse Oximetry (%) Pertinent Admission Physical Exam Findings: PATIENT TOLERATED DETOX WELL. MEDICALLY STABLE. DENIES SI/HI. PATIENT ALERT AND ORIENTED X 3. AMB AD LOI. SKIN WARM AND DRY. EXT FULL ROM. PATIENT ACCEPTED REHAB REFERRAL TO [facility]. PATIENT ENCOURAGED TO COMPLETE REHAB TO PREVENT RELAPSE. D/C INSTRUCTIONS PROVIDED TO PATIENT BY STAFF. - Treatment Hospital Course: Detox Protocol Followed, Detoxed Safely, Responded well, Discharged Condition Good, Rehab Referral Accepted Patient has Accepted a Rehab Referral to: [facility] - Medication Discharge Medications: Ambulatory Orders Aspirin [ASA -] 325 mg PO DAILY 11/07/17 Albuterol Sulfate Inhaler - [Ventolin HFA Inhaler -] 2 puff IH Q6H PRN #1 inhaler 12/01/17 Amlodipine Besylate [Norvasc -] 10 mg PO DAILY #30 tab 12/01/17 Atorvastatin Ca [Lipitor] 40 mg PO HS #14 tablet 12/01/17 - Diagnosis (1) Alcohol dependence with withdrawal Status: Resolved Qualifiers: Complication of substance-induced condition: uncomplicated Qualified Code(s ): F10.230 - Alcohol dependence with withdrawal, uncomplicated - AMA Did Patient Leave Against Medical Advice: No
[2018-02-02] MEDS ORDERED: chlordiazePOXIDE HCL 10 MG CAPSULE PO SCH (23:00)
== END 2018-02-02 11:27 | disposition other institution (70) | DRG 775 ==
LOC: YASAS 13:00 → Y6N 17:35
PROC: HZ2ZZZZ Detoxification Services for Substance Abuse Treatment (ICD-10-PCS; principal; 2018-01-30)
DX: F10.230 Alcohol dependence with withdrawal, uncomplicated (principal); F13.20 Sedative, hypnotic or anxiolytic dependence, uncomplicated; F12.20 Cannabis dependence, uncomplicated; F17.213 Nicotine dependence, cigarettes, with withdrawal; F19.280 Other psychoactive substance dependence with psychoactive substance-induced anxiety disorder; F43.10 Post-traumatic stress disorder, unspecified; I10 Essential (primary) hypertension; J45.22 Mild intermittent asthma with status asthmaticus; K21.9 Gastro-esophageal reflux disease without esophagitis; E78.00 Pure hypercholesterolemia, unspecified; E66.9 Obesity, unspecified; Z68.38 Body mass index [BMI] 38.0-38.9, adult
CPT/HCPCS: 36415; 80053; 81003; 85027; 86593; 93005; 93010

== ENCOUNTER 2018-03-02 12:52 | Inpatient (IN) | payer OTHER ==
[2018-03-02 13:23] VITALS: BMI 40.0
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
[2018-03-02] MEDS ORDERED: MENTHOL/PHENOL 1 EACH UD MM PRN (20:15)
[2018-03-02] MEDS ORDERED: MAGNESIUM CITRATE 300 ML BOTTLE PO PRN (20:15)
[2018-03-02] MEDS ORDERED: guaiFENesin/D-METHORPHAN HB 10 ML UNIT-DOSE CUPS PO PRN (20:15)
[2018-03-02] MEDS ORDERED: chlordiazePOXIDE HCL 25 MG CAPSULE PO PRN (20:15)
[2018-03-02] MEDS ORDERED: MAGNESIUM HYDROX 2400MG/30ML ORAL SUSPENSION 30 ML CUP PO PRN (20:15)
[2018-03-02] MEDS ORDERED: P-EPHED 60MG/TRIPROLIDI 2.5MG TABLET PO PRN (20:15)
[2018-03-02] MEDS ORDERED: LOPERAMIDE HCL 2 MG CAPSULE PO PRN (20:15)
[2018-03-02] MEDS ORDERED: MAG HYDROX/AL HYDROX/SIMETH 30 ML UNIT-DOSE CUP PO PRN (20:15)
[2018-03-02] MEDS ORDERED: ACETAMINOPHEN 325 MG TABLET (FP) PO PRN (20:15)
[2018-03-02] MEDS ORDERED: ALBUTEROL SO4 8 GM HFA INHALER IH PRN (20:16)
[2018-03-02] MEDS ORDERED: MELATONIN 5 MG TABLETS PO PRN (22:00)
[2018-03-02] MEDS: THIAMINE HCL 100 MG TABLET (FP) PO SCH (22:45)
[2018-03-02] MEDS: chlordiazePOXIDE HCL 25 MG CAPSULE PO SCH (22:46)
[2018-03-02] MEDS: IBUPROFEN 400 MG TABLET (FP) PO PRN (22:47)
[2018-03-03] MEDS: chlordiazePOXIDE HCL 25 MG CAPSULE PO SCH ×4 (05:37→22:25)
--- NOTE | 2018-03-03 10:44 | PN ---
S CIWA - CIWA Score Nausea/Vomitin-No Nausea/No Vomiting Muscle Tremors: 3 Anxiety: 4-Mod. Anxious/Guarded Agitation: 3 Paroxysmal Sweats: 1-Minimal Palms Moist Orientation: 0-Oriented Tacttile Disturbances: 0-None Auditory Disturbances: 0-None Visual Disturbances: 0-None Headache: 0-None Present CIWA-Ar Total Score: 11 [facility] Progress Note (SOAP) Subjective: PT REPORTS SLEEPY AND "REGULAR ARTHRITIS PAIN'. SLIGHT ANXIETY. Objective: 03/03/18 10:43 Vital Signs 03/03/18 03/03/18 03:30 06:16 Temperature 98.2 F Pulse Rate 101 H Respiratory 18 20 Rate Blood Pressure 129/72 LABS PENDING Assessment: 03/03/18 10:43 WITHDRAWAL SX Plan: CONTINUE DETOX. INCREASE PO FLUIDS.
[2018-03-03] MEDS: amLODIPine BESYLATE 10 MG TABLET (FP) PO SCH (10:52)
[2018-03-03] MEDS: PRENATAL VITAMINS W/ FOLIC ACID TABLET (FP) PO SCH (10:52)
[2018-03-03 11:13] LABS: URINE APPEARANCE TURBID; URINE BILIRUBIN NEGATIVE (<2.0 mg/dL); URINE COLOR YELLOW; URINE GLUCOSE (UA) NEGATIVE (NEGATIVE); URINE KETONE NEGATIVE (NEGATIVE); URINE LEUK ESTERASE NEGATIVE (NEGATIVE); URINE NITRITE NEGATIVE (NEGATIVE); URINE PROTEIN 1+ (NEGATIVE); URINE UROBILINOGEN NEGATIVE mg/dL (0.2-1.0)
[2018-03-03 11:18] LABS: ALBUMIN 3.9 g/dl (3.4-5.0); ALK PHOS 79 U/L (45-117); ANION GAP 9 MMOL/L (8-16); BILIRUBIN,TOTAL 0.4 mg/dL (0.2-1); BLOOD UREA NITROGEN 15 mg/dL (7-18); CALCIUM 8.4 mg/dL (8.5-10.1); CHLORIDE 104 mmol/L (98-107); CO2 29 mmol/L (21-32); GLUCOSE,RANDOM 119 mg/dL (74-106); POTASSIUM 3.9 mmol/L (3.5-5.1); SGOT/AST 32 U/L (15-37); SGPT/ALT 44 U/L (13-61); SODIUM 143 mmol/L (136-145); TOT PROT 7.1 g/dl (6.4-8.2)
[2018-03-03 11:32] LABS: HEMATOCRIT 39.4 % (35.4-49); HEMOGLOBIN 12.3 GM/dL (11.7-16.9); MCH 26.8 pg (25.7-33.7); MCHC 31.3 g/dl (32.0-35.9); MEAN CELL VOLUME 85.8 fl (80-96); PLATELET COUNT 246 K/MM3 (134-434); RDW 15.9 % (11.9-15.9); WHITE BLOOD COUNT 8.1 K/mm3 (4.0-10.0)
[2018-03-03 11:34] LABS: URINE BACTERIA FEW /hpf (NONE SEEN); URINE MUCUS MANY
[2018-03-03] MEDS: THIAMINE HCL 100 MG TABLET (FP) PO SCH (22:25)
[2018-03-04] MEDS: chlordiazePOXIDE HCL 25 MG CAPSULE PO SCH ×3 (06:05→17:23)
[2018-03-04] MEDS: PRENATAL VITAMINS W/ FOLIC ACID TABLET (FP) PO SCH (10:09)
[2018-03-04] MEDS: amLODIPine BESYLATE 10 MG TABLET (FP) PO SCH (10:09)
--- NOTE | 2018-03-04 15:51 | PN ---
[facility] CIWA - CIWA Score Nausea/Vomitin-No Nausea/No Vomiting Muscle Tremors: 4-Moderate,w/Arms Extend Anxiety: 4-Mod. Anxious/Guarded Agitation: 4-Moderately Restless Paroxysmal Sweats: 3 Orientation: 0-Oriented Tacttile Disturbances: 0-None Auditory Disturbances: 0-None Visual Disturbances: 0-None Headache: 0-None Present CIWA-Ar Total Score: 15 S COWS - Scale Resting Pulse: 0= [place] 80 or Below Sweatin= Chills/Flushing Restless Observation: 3= Extraneous Movement Pupil Size: 0= Normal to Room Light Bone or Joint Aches: 2= Severe Diffuse Aches Runny Nose/ Eye Tearin= Runny Nose/Eyes GI Upset > 30mins: 3= Vomiting/Diarrhea Tremor Observation of Outstretched Hands: 2= Slight Tremor Visible Yawning Observation: 0= None Anxiety or Irritability: 2=Irritable/Anxious Goose Flesh Skin: 0=Smooth Skin COWS Score: 15 [facility] Progress Note (SOAP) Subjective: Diarrhea, sweating, chills, interrupted sleep Objective: 03/04/18 15:48 Laboratory Tests 03/03/18 03/03/18 03/03/18 07:30 07:30 07:30 WBC 8.1 RBC 4.60 Hgb 12.3 Hct 39.4 MCV 85.8 MCH 26.8 MCHC 31.3 L RDW 15.9 Plt Count 246 MPV 9.0 D Sodium 143 Potassium 3.9 Chloride 104 Carbon Dioxide 29 Anion Gap 9 BUN 15 Creatinine 1.0 Creat Clearance w eGFR > 60 Random Glucose 119 H Calcium 8.4 L Total Bilirubin 0.4 AST 32 ALT 44 Alkaline Phosphatase 79 Total Protein 7.1 Albumin 3.9 Urine Color Urine Appearance Urine pH Ur Specific [place] Urine Protein Urine Glucose (UA) Urine Ketones Urine Blood Urine Nitrite Urine Bilirubin Urine Urobilinogen Ur Leukocyte Esterase Urine WBC (Auto) Urine RBC (Auto) Urine Bacteria Urine Mucus RPR Titer Nonreactive 03/03/18 08:30 WBC RBC Hgb Hct MCV MCH MCHC RDW Plt Count MPV Sodium Potassium Chloride Carbon Dioxide Anion Gap BUN Creatinine Creat Clearance w eGFR Random Glucose Calcium Total Bilirubin AST ALT Alkaline Phosphatase Total Protein Albumin Urine Color Yellow Urine Appearance Turbid Urine pH 5.0 Ur Specific [place] 1.028 Urine Protein 1+ H Urine Glucose (UA) Negative Urine Ketones Negative Urine Blood Negative Urine Nitrite Negative Urine Bilirubin Negative Urine Urobilinogen Negative Ur Leukocyte Esterase Negative Urine WBC (Auto) 1 Urine RBC (Auto) None Urine Bacteria Few Urine Mucus Many RPR Titer Labs reviewed: abnormal UA Assessment: 03/04/18 15:50 Withdrawal sxs Noted with abnormal UA Plan: Continue detox Abnormal UA: encouraged PO water intake, repeat UA
[2018-03-04] MEDS: THIAMINE HCL 100 MG TABLET (FP) PO SCH (22:23)
[2018-03-04] MEDS: chlordiazePOXIDE 5 MG CAPSULE PO SCH (22:23)
[2018-03-05] MEDS: chlordiazePOXIDE 5 MG CAPSULE PO SCH ×3 (05:49→17:59)
[2018-03-05] MEDS: IBUPROFEN 400 MG TABLET (FP) PO PRN (10:20)
[2018-03-05] MEDS: PRENATAL VITAMINS W/ FOLIC ACID TABLET (FP) PO SCH (10:20)
[2018-03-05] MEDS: amLODIPine BESYLATE 10 MG TABLET (FP) PO SCH (10:21)
[2018-03-05 14:14] LABS: URINE APPEARANCE CLEAR; URINE BILIRUBIN NEGATIVE (<2.0 mg/dL); URINE COLOR STRAW; URINE GLUCOSE (UA) NEGATIVE (NEGATIVE); URINE KETONE NEGATIVE (NEGATIVE); URINE LEUK ESTERASE NEGATIVE (NEGATIVE); URINE NITRITE NEGATIVE (NEGATIVE); URINE PROTEIN NEGATIVE (NEGATIVE); URINE UROBILINOGEN NEGATIVE mg/dL (0.2-1.0)
--- NOTE | 2018-03-05 15:34 | PN ---
S Progress Note (SOAP) Subjective: nO COMPLAINTS OFFERED Ambulating steadily on unit Objective: 03/05/18 15:31 A & O x 3 ambulating ad hernandez on unit no acute distress noted Vital Signs Temperature 96.0 F L 03/05/18 13:28 Pulse Rate 97 H 03/05/18 13:28 Respiratory Rate 20 03/05/18 13:28 Blood Pressure 127/78 03/05/18 13:28 O2 Sat by Pulse Oximetry (%) Assessment: 03/05/18 15:33 uncomplicated withdrawal sx Plan: continue dewtox For d/c in a.m
[2018-03-05] MEDS: chlordiazePOXIDE HCL 10 MG CAPSULE PO SCH (22:35)
[2018-03-05] MEDS: THIAMINE HCL 100 MG TABLET (FP) PO SCH (22:35)
[2018-03-06] MEDS: chlordiazePOXIDE HCL 10 MG CAPSULE PO SCH (06:00)
[2018-03-06 06:38] VITALS: BP 142/90; PULSE 106; TEMP 97.6
--- NOTE | 2018-03-06 10:50 | DS ---
[facility] Detox Discharge Summary Admission Date: 03/02/18 Discharge Date: 03/06/18 - History Present History: Alcohol Dependence, Sedative Dependence Pertinent Past History: Asthma HTN Nicotine Alcohol dependence Sedative dependence - Physical Exam Results Vital Signs: Vital Signs Temperature 97.6 F 03/06/18 06:38 Pulse Rate 106 H 03/06/18 06:38 Respiratory Rate 18 03/06/18 06:38 Blood Pressure 142/90 03/06/18 06:38 O2 Sat by Pulse Oximetry (%) Pertinent Admission Physical Exam Findings: Withdrawal sxs Laboratory Tests 03/03/18 03/03/18 03/03/18 07:30 07:30 07:30 WBC 8.1 RBC 4.60 Hgb 12.3 Hct 39.4 MCV 85.8 MCH 26.8 MCHC 31.3 L RDW 15.9 Plt Count 246 MPV 9.0 D Sodium 143 Potassium 3.9 Chloride 104 Carbon Dioxide 29 Anion Gap 9 BUN 15 Creatinine 1.0 Creat Clearance w eGFR > 60 Random Glucose 119 H Calcium 8.4 L Total Bilirubin 0.4 AST 32 ALT 44 Alkaline Phosphatase 79 Total Protein 7.1 Albumin 3.9 Urine Color Urine Appearance Urine pH Ur Specific [place] Urine Protein Urine Glucose (UA) Urine Ketones Urine Blood Urine Nitrite Urine Bilirubin Urine Urobilinogen Ur Leukocyte Esterase Urine WBC (Auto) Urine RBC (Auto) Urine Bacteria Urine Mucus RPR Titer Nonreactive 03/03/18 03/05/18 08:30 11:10 WBC RBC Hgb Hct MCV MCH MCHC RDW Plt Count MPV Sodium Potassium Chloride Carbon Dioxide Anion Gap BUN Creatinine Creat Clearance w eGFR Random Glucose Calcium Total Bilirubin AST ALT Alkaline Phosphatase Total Protein Albumin Urine Color Yellow Straw Urine Appearance Turbid Clear Urine pH 5.0 5.0 Ur Specific [place] 1.028 1.013 Urine Protein 1+ H Negative Urine Glucose (UA) Negative Negative Urine Ketones Negative Negative Urine Blood Negative Negative Urine Nitrite Negative Negative Urine Bilirubin Negative Negative Urine Urobilinogen Negative Negative Ur Leukocyte Esterase Negative Negative Urine WBC (Auto) 1 Urine RBC (Auto) None Urine Bacteria Few Urine Mucus Many RPR Titer Labs reviewed - Treatment Hospital Course: Detox Protocol Followed, Detoxed Safely, Responded well, Discharged Condition Good - Medication Discharge Medications: Ambulatory Orders Aspirin [ASA -] 325 mg PO DAILY 11/07/17 Albuterol Sulfate Inhaler - [Ventolin HFA Inhaler -] 2 puff IH Q6H PRN #1 inhaler 12/01/17 Amlodipine Besylate [Norvasc -] 10 mg PO DAILY #30 tab 12/01/17 Atorvastatin Ca [Lipitor] 40 mg PO HS #14 tablet 12/01/17 - Diagnosis (1) Abnormal finding on urinalysis Status: Acute (2) Nicotine dependence Status: Chronic Qualifiers: Nicotine product type: cigarettes Substance use status: in withdrawal Qualified Code(s): F17.213 - Nicotine dependence, cigarettes, with withdrawal (3) Sedative, hypnotic or anxiolytic dependence with withdrawal, uncomplicated Status: Acute (4) Asthma Status: Chronic Qualifiers: Asthma severity: mild Asthma persistence: unspecified Asthma complication type: unspecified Qualified Code(s): J45.909 - Unspecified asthma , uncomplicated (5) HTN (hypertension) Status: Chronic Qualifiers: Hypertension type: essential hypertension Qualified Code(s): I10 - Essential (primary) hypertension (6) Sedative hypnotic or anxiolytic dependence Status: Acute - AMA Did Patient Leave Against Medical Advice: No (F/U with your PCP within 1-2 weeks )
== END 2018-03-06 07:00 | disposition home or self-care (01) | DRG 775 ==
LOC: YASAS 12:52 → Y3N 19:59
PROC: HZ2ZZZZ Detoxification Services for Substance Abuse Treatment (ICD-10-PCS; principal; 2018-03-02)
DX: F10.230 Alcohol dependence with withdrawal, uncomplicated (principal); F13.20 Sedative, hypnotic or anxiolytic dependence, uncomplicated; F17.213 Nicotine dependence, cigarettes, with withdrawal; I10 Essential (primary) hypertension; J45.909 Unspecified asthma, uncomplicated; R82.90 Unspecified abnormal findings in urine; K21.9 Gastro-esophageal reflux disease without esophagitis; E78.00 Pure hypercholesterolemia, unspecified; R00.0 Tachycardia, unspecified; E66.01 Morbid (severe) obesity due to excess calories; Z68.41 Body mass index [BMI] 40.0-44.9, adult; Z91.010 Allergy to peanuts
CPT/HCPCS: 36415; 80053; 81003; 81015; 85027; 86593

== ENCOUNTER 2020-08-06 18:40 | Inpatient (IN) | payer OTHER ==
[2020-08-06] MEDS ORDERED: ALBUTEROL SO4 HFA INHALER IH PRN (20:52)
[2020-08-06] MEDS ORDERED: hydrOXYzine PAMOATE 25 MG CAPSULE (FP) PO PRN (20:53)
[2020-08-06] MEDS ORDERED: ONDANSETRON *ODT* 4 MG TABLET SL PRN (20:53)
[2020-08-06] MEDS ORDERED: METHOCARBAMOL 500 MG TABLET PO PRN (20:53)
[2020-08-06] MEDS ORDERED: MAGNESIUM HYDROX 2400MG/30ML ORAL SUSPENSION 30 ML CUP PO PRN (20:53)
[2020-08-06] MEDS ORDERED: ACETAMINOPHEN 325 MG TABLET (FP) PO PRN (20:53)
[2020-08-06] MEDS ORDERED: MENTHOL/PHENOL 1 EACH UD MM PRN (20:53)
[2020-08-06] MEDS ORDERED: MAGNESIUM CITRATE 300 ML BOTTLE PO PRN (20:53)
[2020-08-06] MEDS ORDERED: MAG HYDROX/AL HYDROX/SIMETH 30 ML UNIT-DOSE CUP PO PRN (20:53)
[2020-08-06] MEDS ORDERED: chlordiazePOXIDE HCL 25 MG CAPSULE PO PRN (20:56)
[2020-08-06] MEDS ORDERED: chlordiazePOXIDE HCL 25 MG CAPSULE PO ONE (20:56)
[2020-08-06 21:28] VITALS: BMI 33.1
[2020-08-06] MEDS: ATORVASTATIN CA 40 MG TABLET (FP) PO SCH (23:00)
[2020-08-06] MEDS: chlordiazePOXIDE HCL 25 MG CAPSULE PO SCH (23:00)
[2020-08-06] MEDS: MELATONIN 5 MG TABLETS PO SCH (23:02)
[2020-08-06] MEDS: THIAMINE HCL 100 MG TABLET (FP) PO SCH (23:02)
[2020-08-07] MEDS: chlordiazePOXIDE HCL 25 MG CAPSULE PO SCH ×4 (06:54→23:20)
[2020-08-07] MEDS: ACETAMINOPHEN 325 MG TABLET (FP) PO PRN (06:56)
[2020-08-07] MEDS: PRENATAL VITAMINS W/ FOLIC ACID TABLET (FP) PO SCH (10:48)
[2020-08-07] MEDS: ASPIRIN 81 MG CHEWABLE TABLETS PO SCH (10:48)
[2020-08-07] MEDS: amLODIPine BESYLATE 10 MG TABLET (FP) PO SCH (10:49)
[2020-08-07 12:11] LABS: HEMATOCRIT 35.5 % (35.4-49); HEMOGLOBIN 11.3 GM/dL (11.7-16.9); MCH 27.3 pg (25.7-33.7); MCHC 31.8 g/dl (32.0-35.9); MEAN CELL VOLUME 85.8 fl (80-96); MEAN PLT VOLUME 8.7 fl (7.5-11.1); PLATELET COUNT 210 K/MM3 (134-434); RBC 4.14 M/mm3 (4.00-5.60); RDW 22.3 % (11.9-15.9); WHITE BLOOD COUNT 3.4 K/mm3 (4.0-10.0)
[2020-08-07 12:32] LABS: BLOOD UREA NITROGEN 6.4 mg/dL (7-18)
[2020-08-07 12:34] LABS: ALBUMIN 3.9 g/dl (3.4-5.0)
[2020-08-07 12:35] LABS: CREATININE 0.8 mg/dL (0.55-1.3)
[2020-08-07 12:36] LABS: BILIRUBIN,TOTAL 0.4 mg/dL (0.2-1); TOT PROT 7.2 g/dl (6.4-8.2)
[2020-08-07] MEDS: BISMUTH SUBSALICYLATE 524 MG/30 ML UD PO PRN (18:40)
[2020-08-07] MEDS: ATORVASTATIN CA 40 MG TABLET (FP) PO SCH (23:20)
[2020-08-07] MEDS: THIAMINE HCL 100 MG TABLET (FP) PO SCH (23:21)
[2020-08-07] MEDS: MELATONIN 5 MG TABLETS PO SCH (23:21)
[2020-08-08] MEDS: chlordiazePOXIDE HCL 25 MG CAPSULE PO SCH ×4 (05:58→22:12)
[2020-08-08] MEDS: ACETAMINOPHEN 325 MG TABLET (FP) PO PRN (05:59)
[2020-08-08] MEDS: ASPIRIN 81 MG CHEWABLE TABLETS PO SCH (11:32)
[2020-08-08] MEDS: PRENATAL VITAMINS W/ FOLIC ACID TABLET (FP) PO SCH (11:33)
[2020-08-08] MEDS: amLODIPine BESYLATE 10 MG TABLET (FP) PO SCH (11:33)
[2020-08-08] MEDS: BISMUTH SUBSALICYLATE 524 MG/30 ML UD PO PRN (11:38)
[2020-08-08] MEDS: ATORVASTATIN CA 40 MG TABLET (FP) PO SCH (22:12)
[2020-08-08] MEDS: MELATONIN 5 MG TABLETS PO SCH (22:14)
[2020-08-08] MEDS: THIAMINE HCL 100 MG TABLET (FP) PO SCH (23:24)
[2020-08-09] MEDS ORDERED: chlordiazePOXIDE HCL 10 MG CAPSULE PO PRN
[2020-08-09] MEDS: chlordiazePOXIDE HCL 10 MG CAPSULE PO SCH ×4 (05:49→22:57)
[2020-08-09] MEDS: ACETAMINOPHEN 325 MG TABLET (FP) PO PRN (05:50)
[2020-08-09] MEDS: ASPIRIN 81 MG CHEWABLE TABLETS PO SCH (11:16)
[2020-08-09] MEDS: amLODIPine BESYLATE 10 MG TABLET (FP) PO SCH (11:16)
[2020-08-09] MEDS: PRENATAL VITAMINS W/ FOLIC ACID TABLET (FP) PO SCH (11:18)
[2020-08-09] MEDS: ATORVASTATIN CA 40 MG TABLET (FP) PO SCH (22:57)
[2020-08-09] MEDS: THIAMINE HCL 100 MG TABLET (FP) PO SCH (22:57)
[2020-08-09] MEDS: MELATONIN 5 MG TABLETS PO SCH (22:57)
[2020-08-10] MEDS: chlordiazePOXIDE HCL 10 MG CAPSULE PO SCH ×3 (07:33→18:45)
[2020-08-10 08:06] LABS: SARS-CoV-2 NAA Not Detected (Not Detected)
[2020-08-10] MEDS: ASPIRIN 81 MG CHEWABLE TABLETS PO SCH (10:11)
[2020-08-10] MEDS: amLODIPine BESYLATE 10 MG TABLET (FP) PO SCH (10:11)
[2020-08-10] MEDS: PRENATAL VITAMINS W/ FOLIC ACID TABLET (FP) PO SCH (10:11)
[2020-08-10] MEDS: ACETAMINOPHEN 325 MG TABLET (FP) PO PRN (10:12)
[2020-08-10] MEDS ORDERED: FAMOTIDINE 20 MG TABLET PO SCH (14:50)
[2020-08-10] MEDS: THIAMINE HCL 100 MG TABLET (FP) PO SCH (22:15)
[2020-08-10] MEDS: ATORVASTATIN CA 40 MG TABLET (FP) PO SCH (22:15)
[2020-08-10] MEDS: MELATONIN 5 MG TABLETS PO SCH (22:16)
[2020-08-10] MEDS: FAMOTIDINE 20 MG TABLET PO SCH (22:16)
[2020-08-11] MEDS ORDERED: chlordiazePOXIDE HCL 10 MG CAPSULE PO ONE (05:00)
[2020-08-11] MEDS: FAMOTIDINE 20 MG TABLET PO SCH (06:31)
[2020-08-11 09:38] VITALS: BP 105/83; PULSE 84; TEMP 97.5
[2020-08-11] MEDS: ASPIRIN 81 MG CHEWABLE TABLETS PO SCH (10:17)
[2020-08-11] MEDS: PRENATAL VITAMINS W/ FOLIC ACID TABLET (FP) PO SCH (10:17)
[2020-08-11] MEDS: amLODIPine BESYLATE 10 MG TABLET (FP) PO SCH (10:17)
[2020-08-11] MEDS: ACETAMINOPHEN 325 MG TABLET (FP) PO PRN (10:17)
== END 2020-08-11 12:28 | disposition other institution (70) | DRG 773 ==
LOC: YASAS 18:40 → Y6N 22:11
PROVIDERS: ADMIT Allergy & Immunology; ATTEND Allergy & Immunology
PROC: HZ2ZZZZ Detoxification Services for Substance Abuse Treatment (ICD-10-PCS; principal; 2020-08-06)
DX: F11.23 Opioid dependence with withdrawal (principal); F13.20 Sedative, hypnotic or anxiolytic dependence, uncomplicated; F43.10 Post-traumatic stress disorder, unspecified; F17.210 Nicotine dependence, cigarettes, uncomplicated; I10 Essential (primary) hypertension; J45.909 Unspecified asthma, uncomplicated; K21.9 Gastro-esophageal reflux disease without esophagitis; E78.00 Pure hypercholesterolemia, unspecified; M17.0 Bilateral primary osteoarthritis of knee; M19.072 Primary osteoarthritis, left ankle and foot; R74.01 Elevation of levels of liver transaminase levels; Z56.0 Unemployment, unspecified; Z91.410 Personal history of adult physical and sexual abuse; Z91.018 Allergy to other foods; Z94.5 Skin transplant status; Z59.0 Homelessness
CPT/HCPCS: 36415; 80053; 82962; 85027; 86780; C9803; Q0162; U0003; U0005

== ENCOUNTER 2020-08-11 12:18 | Inpatient (IN) | payer OTHER ==
[2020-08-11] MEDS ORDERED: MAGNESIUM HYDROX 2400MG/30ML ORAL SUSPENSION 30 ML CUP PO PRN (12:36)
[2020-08-11] MEDS ORDERED: MENTHOL/PHENOL 1 EACH UD MM PRN (12:36)
[2020-08-11] MEDS ORDERED: MAG HYDROX/AL HYDROX/SIMETH 30 ML UNIT-DOSE CUP PO PRN (12:36)
[2020-08-11] MEDS ORDERED: LOPERAMIDE HCL 2 MG CAPSULE PO PRN (12:36)
[2020-08-11] MEDS ORDERED: guaiFENesin 200 MG/10 ML 10 ML UNIT-DOSE CUPS PO PRN (12:36)
[2020-08-11] MEDS ORDERED: IBUPROFEN 400 MG TABLET (FP) PO PRN (12:36)
[2020-08-11] MEDS ORDERED: MAGNESIUM CITRATE 300 ML BOTTLE PO PRN (12:36)
[2020-08-11] MEDS ORDERED: P-EPHED 60MG/TRIPROLIDI 2.5MG TABLET PO PRN (12:36)
[2020-08-11] MEDS ORDERED: ALBUTEROL SO4 HFA INHALER IH PRN (12:37)
[2020-08-11] MEDS: MELATONIN 5 MG TABLETS PO SCH (21:53)
[2020-08-11] MEDS: THIAMINE HCL 100 MG TABLET (FP) PO SCH (21:53)
[2020-08-11] MEDS: ACETAMINOPHEN 325 MG TABLET (FP) PO PRN (21:53)
[2020-08-11] MEDS: FAMOTIDINE 20 MG TABLET PO SCH (21:53)
[2020-08-11] MEDS: ATORVASTATIN CA 40 MG TABLET (FP) PO SCH (21:53)
[2020-08-12] MEDS ORDERED: ASPIRIN 81 MG CHEWABLE TABLETS PO SCH (10:00)
[2020-08-12] MEDS: FAMOTIDINE 20 MG TABLET PO SCH ×2 (10:10→17:10)
[2020-08-12] MEDS: amLODIPine BESYLATE 10 MG TABLET (FP) PO SCH (10:11)
[2020-08-12] MEDS: PRENATAL VITAMINS W/ FOLIC ACID TABLET (FP) PO SCH (10:11)
[2020-08-12] MEDS ORDERED: FAMOTIDINE 20 MG TABLET PO SCH (11:27)
[2020-08-12] MEDS: MELATONIN 5 MG TABLETS PO SCH (21:14)
[2020-08-12] MEDS: ATORVASTATIN CA 40 MG TABLET (FP) PO SCH (21:14)
[2020-08-12] MEDS: THIAMINE HCL 100 MG TABLET (FP) PO SCH (21:14)
[2020-08-13] MEDS: FAMOTIDINE 20 MG TABLET PO SCH ×2 (07:05→17:43)
[2020-08-13] MEDS: ASPIRIN 81 MG CHEWABLE TABLETS PO SCH (10:02)
[2020-08-13] MEDS: ACETAMINOPHEN 325 MG TABLET (FP) PO PRN ×2 (10:04→21:29)
[2020-08-13] MEDS: amLODIPine BESYLATE 10 MG TABLET (FP) PO SCH (10:04)
[2020-08-13] MEDS: PRENATAL VITAMINS W/ FOLIC ACID TABLET (FP) PO SCH (10:06)
[2020-08-13] MEDS ORDERED: FAMOTIDINE 20 MG TABLET PO SCH (16:30)
[2020-08-13 18:32] LABS: HIV INTERPRETATION NEGATIVE (NEGATIVE)
[2020-08-13] MEDS: ATORVASTATIN CA 40 MG TABLET (FP) PO SCH (21:28)
[2020-08-13] MEDS: MELATONIN 5 MG TABLETS PO SCH (21:28)
[2020-08-13] MEDS: THIAMINE HCL 100 MG TABLET (FP) PO SCH (21:29)
[2020-08-14] MEDS: FAMOTIDINE 20 MG TABLET PO SCH ×2 (06:36→16:54)
[2020-08-14] MEDS: PRENATAL VITAMINS W/ FOLIC ACID TABLET (FP) PO SCH (09:51)
[2020-08-14] MEDS: ASPIRIN 81 MG CHEWABLE TABLETS PO SCH (09:51)
[2020-08-14] MEDS: amLODIPine BESYLATE 10 MG TABLET (FP) PO SCH (09:51)
[2020-08-14] MEDS: ACETAMINOPHEN 325 MG TABLET (FP) PO PRN ×2 (09:52→21:28)
[2020-08-14] MEDS: THIAMINE HCL 100 MG TABLET (FP) PO SCH (21:28)
[2020-08-14] MEDS: ATORVASTATIN CA 40 MG TABLET (FP) PO SCH (21:28)
[2020-08-14] MEDS: MELATONIN 5 MG TABLETS PO SCH (21:28)
[2020-08-15 04:06] LABS: SARS-CoV-2 NAA Not Detected (Not Detected)
[2020-08-15] MEDS: FAMOTIDINE 20 MG TABLET PO SCH ×2 (06:57→16:45)
[2020-08-15] MEDS: ACETAMINOPHEN 325 MG TABLET (FP) PO PRN ×2 (09:38→21:16)
[2020-08-15] MEDS: PRENATAL VITAMINS W/ FOLIC ACID TABLET (FP) PO SCH (09:39)
[2020-08-15] MEDS: ASPIRIN 81 MG CHEWABLE TABLETS PO SCH (09:39)
[2020-08-15] MEDS: amLODIPine BESYLATE 10 MG TABLET (FP) PO SCH (09:39)
[2020-08-15] MEDS ORDERED: MASKS NR ONE (14:22)
[2020-08-15] MEDS: ATORVASTATIN CA 40 MG TABLET (FP) PO SCH (21:16)
[2020-08-15] MEDS: MELATONIN 5 MG TABLETS PO SCH (21:16)
[2020-08-15] MEDS: THIAMINE HCL 100 MG TABLET (FP) PO SCH (21:17)
[2020-08-16] MEDS: ACETAMINOPHEN 325 MG TABLET (FP) PO PRN ×2 (06:20→21:13)
[2020-08-16] MEDS: FAMOTIDINE 20 MG TABLET PO SCH ×2 (07:12→16:18)
[2020-08-16] MEDS: ASPIRIN 81 MG CHEWABLE TABLETS PO SCH (09:45)
[2020-08-16] MEDS: amLODIPine BESYLATE 10 MG TABLET (FP) PO SCH (09:45)
[2020-08-16] MEDS: PRENATAL VITAMINS W/ FOLIC ACID TABLET (FP) PO SCH (09:45)
[2020-08-16] MEDS: THIAMINE HCL 100 MG TABLET (FP) PO SCH (21:13)
[2020-08-16] MEDS: ATORVASTATIN CA 40 MG TABLET (FP) PO SCH (21:13)
[2020-08-16] MEDS: MELATONIN 5 MG TABLETS PO SCH (21:13)
[2020-08-17] MEDS: FAMOTIDINE 20 MG TABLET PO SCH ×2 (06:29→16:35)
[2020-08-17] MEDS: amLODIPine BESYLATE 10 MG TABLET (FP) PO SCH (09:52)
[2020-08-17] MEDS: ASPIRIN 81 MG CHEWABLE TABLETS PO SCH (09:52)
[2020-08-17] MEDS: ACETAMINOPHEN 325 MG TABLET (FP) PO PRN ×2 (09:52→21:16)
[2020-08-17] MEDS: PRENATAL VITAMINS W/ FOLIC ACID TABLET (FP) PO SCH (09:53)
[2020-08-17] MEDS: ATORVASTATIN CA 40 MG TABLET (FP) PO SCH (21:15)
[2020-08-17] MEDS: THIAMINE HCL 100 MG TABLET (FP) PO SCH (21:16)
[2020-08-17] MEDS: MELATONIN 5 MG TABLETS PO SCH (21:16)
[2020-08-18] MEDS: FAMOTIDINE 20 MG TABLET PO SCH ×2 (06:29→17:07)
[2020-08-18] MEDS: ASPIRIN 81 MG CHEWABLE TABLETS PO SCH (09:49)
[2020-08-18] MEDS: amLODIPine BESYLATE 10 MG TABLET (FP) PO SCH (09:49)
[2020-08-18] MEDS: PRENATAL VITAMINS W/ FOLIC ACID TABLET (FP) PO SCH (09:49)
[2020-08-18] MEDS: ACETAMINOPHEN 325 MG TABLET (FP) PO PRN ×2 (09:50→21:12)
[2020-08-18] MEDS: MINERAL OIL/PETROLAT/WATER TOPICAL CREAM 113 GM JAR TP SCH (12:11)
[2020-08-18] MEDS: TOLNAFTATE 1% CREAM 15 GM TUBE TP SCH ×2 (12:11→21:11)
[2020-08-18] MEDS: LORATADINE 10 MG TABLET PO SCH (12:11)
[2020-08-18] MEDS ORDERED: PT OWN MED DRAWER 7, Y5N ONE (19:03)
[2020-08-18] MEDS: MELATONIN 5 MG TABLETS PO SCH (21:11)
[2020-08-18] MEDS: ATORVASTATIN CA 40 MG TABLET (FP) PO SCH (21:11)
[2020-08-18] MEDS: THIAMINE HCL 100 MG TABLET (FP) PO SCH (21:12)
[2020-08-19] MEDS: FAMOTIDINE 20 MG TABLET PO SCH ×2 (06:36→16:54)
[2020-08-19] MEDS: PRENATAL VITAMINS W/ FOLIC ACID TABLET (FP) PO SCH (09:28)
[2020-08-19] MEDS: LORATADINE 10 MG TABLET PO SCH (09:28)
[2020-08-19] MEDS: amLODIPine BESYLATE 10 MG TABLET (FP) PO SCH (09:28)
[2020-08-19] MEDS: TOLNAFTATE 1% CREAM 15 GM TUBE TP SCH ×2 (09:28→21:46)
[2020-08-19] MEDS: ASPIRIN 81 MG CHEWABLE TABLETS PO SCH (09:28)
[2020-08-19] MEDS: ACETAMINOPHEN 325 MG TABLET (FP) PO PRN ×2 (09:30→21:45)
[2020-08-19] MEDS: MINERAL OIL/PETROLAT/WATER TOPICAL CREAM 113 GM JAR TP SCH (09:30)
[2020-08-19] MEDS ORDERED: COLLOIDAL OATMEAL 1 BAR EACH TP PRN (11:59)
[2020-08-19] MEDS: THIAMINE HCL 100 MG TABLET (FP) PO SCH (21:44)
[2020-08-19] MEDS: ATORVASTATIN CA 40 MG TABLET (FP) PO SCH (21:44)
[2020-08-19] MEDS: MELATONIN 5 MG TABLETS PO SCH (21:46)
[2020-08-20] MEDS: FAMOTIDINE 20 MG TABLET PO SCH ×2 (06:39→16:59)
[2020-08-20] MEDS ORDERED: PT OWN MED DRAWER 7, Y5N ONE (08:59)
[2020-08-20] MEDS: PRENATAL VITAMINS W/ FOLIC ACID TABLET (FP) PO SCH (09:42)
[2020-08-20] MEDS: amLODIPine BESYLATE 10 MG TABLET (FP) PO SCH (09:43)
[2020-08-20] MEDS: TOLNAFTATE 1% CREAM 15 GM TUBE TP SCH ×2 (09:43→22:04)
[2020-08-20] MEDS: ACETAMINOPHEN 325 MG TABLET (FP) PO PRN ×2 (09:43→21:21)
[2020-08-20] MEDS: ASPIRIN 81 MG CHEWABLE TABLETS PO SCH (09:43)
[2020-08-20] MEDS: LORATADINE 10 MG TABLET PO SCH (09:43)
[2020-08-20] MEDS: MINERAL OIL/PETROLAT/WATER TOPICAL CREAM 113 GM JAR TP SCH (09:48)
[2020-08-20] MEDS: THIAMINE HCL 100 MG TABLET (FP) PO SCH (21:21)
[2020-08-20] MEDS: ATORVASTATIN CA 40 MG TABLET (FP) PO SCH (21:21)
[2020-08-20] MEDS: MELATONIN 5 MG TABLETS PO SCH (21:21)
[2020-08-21] MEDS: FAMOTIDINE 20 MG TABLET PO SCH ×2 (06:44→16:40)
[2020-08-21] MEDS: ASPIRIN 81 MG CHEWABLE TABLETS PO SCH (09:40)
[2020-08-21] MEDS: LORATADINE 10 MG TABLET PO SCH (09:40)
[2020-08-21] MEDS: PRENATAL VITAMINS W/ FOLIC ACID TABLET (FP) PO SCH (09:40)
[2020-08-21] MEDS: amLODIPine BESYLATE 10 MG TABLET (FP) PO SCH (09:40)
[2020-08-21] MEDS: ACETAMINOPHEN 325 MG TABLET (FP) PO PRN ×2 (09:41→21:07)
[2020-08-21] MEDS: MINERAL OIL/PETROLAT/WATER TOPICAL CREAM 113 GM JAR TP SCH (09:43)
[2020-08-21] MEDS: TOLNAFTATE 1% CREAM 15 GM TUBE TP SCH ×2 (09:43→21:07)
[2020-08-21] MEDS ORDERED: PT OWN MED DRAWER 7, Y5N ONE (19:39)
[2020-08-21] MEDS: THIAMINE HCL 100 MG TABLET (FP) PO SCH (21:06)
[2020-08-21] MEDS: MELATONIN 5 MG TABLETS PO SCH (21:06)
[2020-08-21] MEDS: ATORVASTATIN CA 40 MG TABLET (FP) PO SCH (21:06)
[2020-08-22] MEDS: FAMOTIDINE 20 MG TABLET PO SCH ×2 (07:00→16:37)
[2020-08-22] MEDS: LORATADINE 10 MG TABLET PO SCH (10:04)
[2020-08-22] MEDS: ACETAMINOPHEN 325 MG TABLET (FP) PO PRN ×2 (10:04→21:37)
[2020-08-22] MEDS: amLODIPine BESYLATE 10 MG TABLET (FP) PO SCH (10:04)
[2020-08-22] MEDS: MINERAL OIL/PETROLAT/WATER TOPICAL CREAM 113 GM JAR TP SCH (10:04)
[2020-08-22] MEDS: ASPIRIN 81 MG CHEWABLE TABLETS PO SCH (10:04)
[2020-08-22] MEDS: PRENATAL VITAMINS W/ FOLIC ACID TABLET (FP) PO SCH (10:06)
[2020-08-22] MEDS: TOLNAFTATE 1% CREAM 15 GM TUBE TP SCH ×2 (10:06→21:40)
[2020-08-22] MEDS: THIAMINE HCL 100 MG TABLET (FP) PO SCH (21:37)
[2020-08-22] MEDS: ATORVASTATIN CA 40 MG TABLET (FP) PO SCH (21:37)
[2020-08-22] MEDS: MELATONIN 5 MG TABLETS PO SCH (21:38)
[2020-08-22] MEDS ORDERED: PT OWN MED DRAWER 7, Y5N ONE (21:39)
[2020-08-23] MEDS: FAMOTIDINE 20 MG TABLET PO SCH ×2 (06:37→17:29)
[2020-08-23] MEDS: ASPIRIN 81 MG CHEWABLE TABLETS PO SCH (10:24)
[2020-08-23] MEDS: ACETAMINOPHEN 325 MG TABLET (FP) PO PRN ×2 (10:24→21:10)
[2020-08-23] MEDS: amLODIPine BESYLATE 10 MG TABLET (FP) PO SCH (10:24)
[2020-08-23] MEDS: LORATADINE 10 MG TABLET PO SCH (10:24)
[2020-08-23] MEDS: PRENATAL VITAMINS W/ FOLIC ACID TABLET (FP) PO SCH (10:24)
[2020-08-23] MEDS: MINERAL OIL/PETROLAT/WATER TOPICAL CREAM 113 GM JAR TP SCH (10:25)
[2020-08-23] MEDS: TOLNAFTATE 1% CREAM 15 GM TUBE TP SCH ×2 (10:25→21:10)
[2020-08-23] MEDS ORDERED: PT OWN MED DRAWER 7, Y5N ONE (19:28)
[2020-08-23] MEDS: THIAMINE HCL 100 MG TABLET (FP) PO SCH (21:10)
[2020-08-23] MEDS: MELATONIN 5 MG TABLETS PO SCH (21:10)
[2020-08-23] MEDS: ATORVASTATIN CA 40 MG TABLET (FP) PO SCH (21:10)
[2020-08-24] MEDS: FAMOTIDINE 20 MG TABLET PO SCH ×2 (06:45→17:27)
[2020-08-24] MEDS: ACETAMINOPHEN 325 MG TABLET (FP) PO PRN ×2 (09:34→21:46)
[2020-08-24] MEDS: amLODIPine BESYLATE 10 MG TABLET (FP) PO SCH (09:34)
[2020-08-24] MEDS: LORATADINE 10 MG TABLET PO SCH (09:34)
[2020-08-24] MEDS: ASPIRIN 81 MG CHEWABLE TABLETS PO SCH (09:34)
[2020-08-24] MEDS: PRENATAL VITAMINS W/ FOLIC ACID TABLET (FP) PO SCH (09:36)
[2020-08-24] MEDS: MINERAL OIL/PETROLAT/WATER TOPICAL CREAM 113 GM JAR TP SCH (09:44)
[2020-08-24] MEDS: TOLNAFTATE 1% CREAM 15 GM TUBE TP SCH ×2 (09:44→22:23)
[2020-08-24] MEDS: THIAMINE HCL 100 MG TABLET (FP) PO SCH (21:46)
[2020-08-24] MEDS: MELATONIN 5 MG TABLETS PO SCH (21:46)
[2020-08-24] MEDS: ATORVASTATIN CA 40 MG TABLET (FP) PO SCH (21:46)
[2020-08-25 06:49] VITALS: BP 146/81; PULSE 79; TEMP 97.8
[2020-08-25] MEDS: FAMOTIDINE 20 MG TABLET PO SCH (07:50)
[2020-08-25] MEDS: LORATADINE 10 MG TABLET PO SCH (09:14)
[2020-08-25] MEDS: amLODIPine BESYLATE 10 MG TABLET (FP) PO SCH (09:14)
[2020-08-25] MEDS: ASPIRIN 81 MG CHEWABLE TABLETS PO SCH (09:14)
[2020-08-25] MEDS: TOLNAFTATE 1% CREAM 15 GM TUBE TP SCH (09:15)
[2020-08-25] MEDS: MINERAL OIL/PETROLAT/WATER TOPICAL CREAM 113 GM JAR TP SCH (09:15)
[2020-08-25] MEDS: PRENATAL VITAMINS W/ FOLIC ACID TABLET (FP) PO SCH (09:15)
[2020-08-25] MEDS: ACETAMINOPHEN 325 MG TABLET (FP) PO PRN (09:16)
== END 2020-08-25 09:40 | disposition home or self-care (01) | DRG 772 ==
LOC: YASAS 12:18 → Y3E 12:19 → Y5N 15:17
PROVIDERS: ADMIT Allergy & Immunology; ATTEND Allergy & Immunology
PROC: HZ42ZZZ Group Counseling for Substance Abuse Treatment, Cognitive-Behavioral (ICD-10-PCS; principal; 2020-08-11)
DX: F10.20 Alcohol dependence, uncomplicated (principal); E78.00 Pure hypercholesterolemia, unspecified; I10 Essential (primary) hypertension; B35.3 Tinea pedis; J30.2 Other seasonal allergic rhinitis; L85.3 Xerosis cutis; I69.854 Hemiplegia and hemiparesis following other cerebrovascular disease affecting left non-dominant side; Z86.73 Personal history of transient ischemic attack (TIA), and cerebral infarction without residual deficits; Z91.018 Allergy to other foods
CPT/HCPCS: 36415; 87389; 93005; 93010; C9803; U0003; U0005

== ENCOUNTER 2020-11-07 12:00 | Inpatient (IN) | payer OTHER ==
[2020-11-07 14:13] VITALS: BMI 35.4
[2020-11-07] MEDS ORDERED: ALBUTEROL SO4 HFA INHALER IH PRN (15:21)
[2020-11-07] MEDS ORDERED: HYDROCORTISONE 2.5% TOPICAL CREAM 30 GM TUBE TP PRN (15:23)
[2020-11-07] MEDS ORDERED: COLLOIDAL OATMEAL 1 BAR EACH TP PRN (15:23)
[2020-11-07] MEDS ORDERED: AMMONIUM LACTATE 12% LOTION 225 GM BOTTLE TP PRN (15:23)
[2020-11-07] MEDS ORDERED: hydrOXYzine PAMOATE 25 MG CAPSULE (FP) PO PRN (15:24)
[2020-11-07] MEDS ORDERED: IBUPROFEN 400 MG TABLET (FP) PO PRN (15:24)
[2020-11-07] MEDS ORDERED: MAGNESIUM CITRATE 300 ML BOTTLE PO PRN (15:24)
[2020-11-07] MEDS ORDERED: MAGNESIUM HYDROX 2400MG/30ML ORAL SUSPENSION 30 ML CUP PO PRN (15:24)
[2020-11-07] MEDS ORDERED: ACETAMINOPHEN 325 MG TABLET (FP) PO PRN (15:24)
[2020-11-07] MEDS ORDERED: MAG HYDROX/AL HYDROX/SIMETH 30 ML UNIT-DOSE CUP PO PRN (15:24)
[2020-11-07] MEDS ORDERED: ONDANSETRON *ODT* 4 MG TABLET SL PRN (15:24)
[2020-11-07] MEDS ORDERED: MENTHOL/PHENOL 1 EACH UD MM PRN (15:24)
[2020-11-07] MEDS ORDERED: BISMUTH SUBSALICYLATE 524 MG/30 ML PO PRN (15:24)
[2020-11-07] MEDS ORDERED: METHOCARBAMOL 500 MG TABLET PO PRN (15:24)
[2020-11-07] MEDS ORDERED: NICOTINE POLACRILEX 2 MG GUM BUC PRN (15:26)
[2020-11-07] MEDS ORDERED: diazePAM 5 MG TABLET PO ONE (15:26)
[2020-11-07] MEDS ORDERED: diazePAM 5 MG TABLET PO PRN (15:26)
[2020-11-07] MEDS ORDERED: diazePAM 5 MG TABLET ONE (16:26)
[2020-11-07] MEDS: diazePAM 5 MG TABLET PO SCH ×2 (18:22→22:03)
[2020-11-07] MEDS: FAMOTIDINE 20 MG TABLET PO SCH (22:03)
[2020-11-07] MEDS: MELATONIN 5 MG TABLETS PO SCH (22:04)
[2020-11-07] MEDS: THIAMINE HCL 100 MG TABLET (FP) PO SCH (22:04)
[2020-11-07] MEDS: ATORVASTATIN CA 40 MG TABLET (FP) PO SCH (22:04)
[2020-11-07] MEDS: levETIRAcetam 500 MG TABLET (FP) PO SCH (22:04)
[2020-11-07] MEDS: BUDESONIDE/FORMETEROL FUMARATE 160/4.5 mcg INHALER IH SCH (22:05)
[2020-11-07] MEDS: ACETAMINOPHEN 325 MG TABLET (FP) PO PRN (22:05)
[2020-11-08] MEDS: diazePAM 5 MG TABLET PO SCH ×4 (05:38→22:10)
[2020-11-08] MEDS ORDERED: ASPIRIN 81 MG CHEWABLE TABLETS PO SCH (10:00)
[2020-11-08] MEDS: PRENATAL VITAMINS W/ FOLIC ACID TABLET (FP) PO SCH (10:13)
[2020-11-08] MEDS: levETIRAcetam 500 MG TABLET (FP) PO SCH ×2 (10:13→22:09)
[2020-11-08] MEDS: ENALAPRIL MALEATE 10 MG TABLET PO SCH (10:13)
[2020-11-08] MEDS: LORATADINE 10 MG TABLET PO SCH (10:13)
[2020-11-08] MEDS: FAMOTIDINE 20 MG TABLET PO SCH ×2 (10:13→22:10)
[2020-11-08] MEDS: BUDESONIDE/FORMETEROL FUMARATE 160/4.5 mcg INHALER IH SCH ×2 (10:14→22:11)
[2020-11-08] MEDS ORDERED: LOPERAMIDE HCL 2 MG CAPSULE PO ONE (10:30)
[2020-11-08 11:42] LABS: HEMATOCRIT 36.6 % (35.4-49); HEMOGLOBIN 11.2 GM/dL (11.7-16.9); MCH 25.1 pg (25.7-33.7); MCHC 30.7 g/dl (32.0-35.9); MEAN CELL VOLUME 81.9 fl (80-96); MEAN PLT VOLUME 8.3 fl (7.5-11.1); PLATELET COUNT 262 10^3/uL (134-434); RBC 4.47 M/mm3 (4.00-5.60); RDW 19.6 % (11.9-15.9); WHITE BLOOD COUNT 5.9 K/mm3 (4.0-10.0)
[2020-11-08 12:07] LABS: ALBUMIN 3.3 g/dl (3.4-5.0); BLOOD UREA NITROGEN 10.7 mg/dL (7-18)
[2020-11-08 12:10] LABS: CREATININE 0.8 mg/dL (0.55-1.3)
[2020-11-08 12:11] LABS: BILIRUBIN,TOTAL 0.7 mg/dL (0.2-1); TOT PROT 6.4 g/dl (6.4-8.2)
[2020-11-08] MEDS ORDERED: MASKS NR ONE (16:29)
[2020-11-08] MEDS: ACETAMINOPHEN 325 MG TABLET (FP) PO PRN (17:51)
[2020-11-08] MEDS: ATORVASTATIN CA 40 MG TABLET (FP) PO SCH (22:10)
[2020-11-08] MEDS: THIAMINE HCL 100 MG TABLET (FP) PO SCH (22:10)
[2020-11-08] MEDS: MELATONIN 5 MG TABLETS PO SCH (22:11)
[2020-11-09] MEDS: diazePAM 5 MG TABLET PO SCH ×3 (06:06→22:01)
[2020-11-09] MEDS ORDERED: DIPHENOXYLATE 2.5/ATROPINE.025 1 COMBO TABLET PO ONE (09:00)
[2020-11-09] MEDS: PRENATAL VITAMINS W/ FOLIC ACID TABLET (FP) PO SCH (10:02)
[2020-11-09] MEDS: ENALAPRIL MALEATE 10 MG TABLET PO SCH (10:02)
[2020-11-09] MEDS: LORATADINE 10 MG TABLET PO SCH (10:02)
[2020-11-09] MEDS: FAMOTIDINE 20 MG TABLET PO SCH ×2 (10:03→21:59)
[2020-11-09] MEDS: ASPIRIN 81 MG CHEWABLE TABLETS PO SCH (10:03)
[2020-11-09] MEDS: BUDESONIDE/FORMETEROL FUMARATE 160/4.5 mcg INHALER IH SCH ×2 (10:03→22:01)
[2020-11-09] MEDS: levETIRAcetam 500 MG TABLET (FP) PO SCH ×2 (10:03→21:59)
[2020-11-09] MEDS: ACETAMINOPHEN 325 MG TABLET (FP) PO PRN (10:03)
[2020-11-09] MEDS: ATORVASTATIN CA 40 MG TABLET (FP) PO SCH (21:59)
[2020-11-09] MEDS: THIAMINE HCL 100 MG TABLET (FP) PO SCH (21:59)
[2020-11-09] MEDS: MELATONIN 5 MG TABLETS PO SCH (22:03)
[2020-11-09 22:51] LABS: HIV INTERPRETATION NEGATIVE (NEGATIVE)
[2020-11-10] MEDS: diazePAM 5 MG TABLET PO SCH ×2 (05:48→17:21)
[2020-11-10] MEDS: ENALAPRIL MALEATE 10 MG TABLET PO SCH ×2 (10:09→22:17)
[2020-11-10] MEDS: FAMOTIDINE 20 MG TABLET PO SCH ×2 (10:09→22:17)
[2020-11-10] MEDS: PRENATAL VITAMINS W/ FOLIC ACID TABLET (FP) PO SCH (10:09)
[2020-11-10] MEDS: ASPIRIN 81 MG CHEWABLE TABLETS PO SCH (10:09)
[2020-11-10] MEDS: LORATADINE 10 MG TABLET PO SCH (10:09)
[2020-11-10] MEDS: levETIRAcetam 500 MG TABLET (FP) PO SCH ×2 (10:09→22:17)
[2020-11-10] MEDS: ACETAMINOPHEN 325 MG TABLET (FP) PO PRN (10:10)
[2020-11-10] MEDS ORDERED: MASKS NR ONE (11:16)
[2020-11-10] MEDS: THIAMINE HCL 100 MG TABLET (FP) PO SCH (22:17)
[2020-11-10] MEDS: MELATONIN 5 MG TABLETS PO SCH (22:17)
[2020-11-10] MEDS: ATORVASTATIN CA 40 MG TABLET (FP) PO SCH (22:17)
[2020-11-11] MEDS ORDERED: diazePAM 5 MG TABLET PO ONE (06:00)
[2020-11-11 08:59] VITALS: BP 137/89; PULSE 85; TEMP 98.2
[2020-11-11] MEDS: PRENATAL VITAMINS W/ FOLIC ACID TABLET (FP) PO SCH (10:05)
[2020-11-11] MEDS: ACETAMINOPHEN 325 MG TABLET (FP) PO PRN (10:06)
[2020-11-11] MEDS: ENALAPRIL MALEATE 10 MG TABLET PO SCH (10:06)
[2020-11-11] MEDS: LORATADINE 10 MG TABLET PO SCH (10:06)
[2020-11-11] MEDS: ASPIRIN 81 MG CHEWABLE TABLETS PO SCH (10:06)
[2020-11-11] MEDS: FAMOTIDINE 20 MG TABLET PO SCH (10:06)
[2020-11-11] MEDS: levETIRAcetam 500 MG TABLET (FP) PO SCH (10:06)
== END 2020-11-11 13:33 | disposition other institution (70) | DRG 775 ==
LOC: YASAS 12:00 → Y6N 15:48
PROVIDERS: ADMIT Allergy & Immunology; ATTEND Allergy & Immunology
PROC: HZ2ZZZZ Detoxification Services for Substance Abuse Treatment (ICD-10-PCS; principal; 2020-11-07)
DX: F10.230 Alcohol dependence with withdrawal, uncomplicated (principal); F13.230 Sedative, hypnotic or anxiolytic dependence with withdrawal, uncomplicated; F12.20 Cannabis dependence, uncomplicated; F17.210 Nicotine dependence, cigarettes, uncomplicated; F43.10 Post-traumatic stress disorder, unspecified; E78.5 Hyperlipidemia, unspecified; G40.909 Epilepsy, unspecified, not intractable, without status epilepticus; I10 Essential (primary) hypertension; J45.20 Mild intermittent asthma, uncomplicated; J30.2 Other seasonal allergic rhinitis; K21.9 Gastro-esophageal reflux disease without esophagitis; L85.3 Xerosis cutis; M17.0 Bilateral primary osteoarthritis of knee; M19.071 Primary osteoarthritis, right ankle and foot; M19.072 Primary osteoarthritis, left ankle and foot; Z86.73 Personal history of transient ischemic attack (TIA), and cerebral infarction without residual deficits; Z87.828 Personal history of other (healed) physical injury and trauma; Z94.5 Skin transplant status; Z91.018 Allergy to other foods
CPT/HCPCS: 36415; 80053; 85027; 86780; 87389; C9803; U0003; U0005

== ENCOUNTER 2020-11-11 13:42 | Inpatient (IN) | payer OTHER ==
[2020-11-11] MEDS ORDERED: MAGNESIUM HYDROX 2400MG/30ML ORAL SUSPENSION 30 ML CUP PO PRN (15:35)
[2020-11-11] MEDS ORDERED: MAGNESIUM CITRATE 300 ML BOTTLE PO PRN (15:35)
[2020-11-11] MEDS ORDERED: guaiFENesin 200 MG/10 ML 10 ML UNIT-DOSE CUPS PO PRN (15:35)
[2020-11-11] MEDS ORDERED: MENTHOL/PHENOL 1 EACH UD MM PRN (15:35)
[2020-11-11] MEDS ORDERED: LOPERAMIDE HCL 2 MG CAPSULE PO PRN (15:35)
[2020-11-11] MEDS ORDERED: NICOTINE POLACRILEX 2 MG GUM BUC PRN (15:35)
[2020-11-11] MEDS ORDERED: P-EPHED 60MG/TRIPROLIDI 2.5MG TABLET PO PRN (15:35)
[2020-11-11] MEDS ORDERED: MAG HYDROX/AL HYDROX/SIMETH 30 ML UNIT-DOSE CUP PO PRN (15:35)
[2020-11-11] MEDS ORDERED: ALBUTEROL SO4 HFA INHALER IH PRN (15:37)
[2020-11-11] MEDS: MELATONIN 5 MG TABLETS PO SCH (21:22)
[2020-11-11] MEDS: THIAMINE HCL 100 MG TABLET (FP) PO SCH (21:22)
[2020-11-11] MEDS ORDERED: PATIENT'S OWN MEDICATION (NON-FORMULARY) (Levetiracetam [Levetiracetam] 750 MG Tablet) PO SCH (22:00)
[2020-11-11] MEDS: BUDESONIDE/FORMETEROL FUMARATE 160/4.5 mcg INHALER IH SCH (22:14)
[2020-11-12] MEDS: PRENATAL VITAMINS W/ FOLIC ACID TABLET (FP) PO SCH (09:42)
[2020-11-12] MEDS: amLODIPine BESYLATE 10 MG TABLET (FP) PO SCH (09:43)
[2020-11-12] MEDS: BUDESONIDE/FORMETEROL FUMARATE 160/4.5 mcg INHALER IH SCH ×2 (09:44→21:32)
[2020-11-12] MEDS: NICOTINE 7 MG/24 HOURS TOPICAL PATCH TD SCH (09:44)
[2020-11-12] MEDS: ACETAMINOPHEN 325 MG TABLET (FP) PO PRN (09:44)
[2020-11-12] MEDS: FAMOTIDINE 20 MG TABLET PO SCH ×2 (11:38→21:32)
[2020-11-12] MEDS ORDERED: PT OWN MED DRAWER 7, Y5N ONE (19:59)
[2020-11-12] MEDS: MELATONIN 5 MG TABLETS PO SCH (21:32)
[2020-11-12] MEDS: THIAMINE HCL 100 MG TABLET (FP) PO SCH (21:32)
[2020-11-12] MEDS: hydrOXYzine PAMOATE 25 MG CAPSULE (FP) PO PRN (21:32)
[2020-11-12] MEDS: IBUPROFEN 400 MG TABLET (FP) PO PRN (21:34)
[2020-11-13] MEDS: BUDESONIDE/FORMETEROL FUMARATE 160/4.5 mcg INHALER IH SCH ×2 (09:39→21:07)
[2020-11-13] MEDS: amLODIPine BESYLATE 10 MG TABLET (FP) PO SCH (09:39)
[2020-11-13] MEDS: FAMOTIDINE 20 MG TABLET PO SCH ×2 (09:40→21:08)
[2020-11-13] MEDS: PRENATAL VITAMINS W/ FOLIC ACID TABLET (FP) PO SCH (09:41)
[2020-11-13] MEDS: NICOTINE 7 MG/24 HOURS TOPICAL PATCH TD SCH (09:41)
[2020-11-13] MEDS: ACETAMINOPHEN 325 MG TABLET (FP) PO PRN (09:42)
[2020-11-13] MEDS ORDERED: HYDROCORTISONE 1% TOPICAL CREAM 30 GM TUBE TP PRN (14:53)
[2020-11-13] MEDS: IBUPROFEN 400 MG TABLET (FP) PO PRN (21:07)
[2020-11-13] MEDS: MELATONIN 5 MG TABLETS PO SCH (21:07)
[2020-11-13] MEDS: THIAMINE HCL 100 MG TABLET (FP) PO SCH (21:07)
[2020-11-14] MEDS: FAMOTIDINE 20 MG TABLET PO SCH ×2 (06:31→21:21)
[2020-11-14] MEDS: amLODIPine BESYLATE 10 MG TABLET (FP) PO SCH (10:07)
[2020-11-14] MEDS: hydrOXYzine PAMOATE 25 MG CAPSULE (FP) PO PRN (10:07)
[2020-11-14] MEDS: BUDESONIDE/FORMETEROL FUMARATE 160/4.5 mcg INHALER IH SCH ×2 (10:07→21:20)
[2020-11-14] MEDS: PRENATAL VITAMINS W/ FOLIC ACID TABLET (FP) PO SCH (10:08)
[2020-11-14] MEDS: NICOTINE 7 MG/24 HOURS TOPICAL PATCH TD SCH (10:08)
[2020-11-14] MEDS: ACETAMINOPHEN 325 MG TABLET (FP) PO PRN ×2 (10:09→21:21)
[2020-11-14] MEDS ORDERED: PT OWN MED DRAWER 7, Y5N ONE (19:41)
[2020-11-14] MEDS: THIAMINE HCL 100 MG TABLET (FP) PO SCH (21:21)
[2020-11-14] MEDS: MELATONIN 5 MG TABLETS PO SCH (21:21)
[2020-11-15] MEDS: FAMOTIDINE 20 MG TABLET PO SCH ×2 (06:46→21:25)
[2020-11-15] MEDS ORDERED: PT OWN MED DRAWER 7, Y5N ONE ×2 (08:57→19:54)
[2020-11-15] MEDS: PRENATAL VITAMINS W/ FOLIC ACID TABLET (FP) PO SCH (10:10)
[2020-11-15] MEDS: BUDESONIDE/FORMETEROL FUMARATE 160/4.5 mcg INHALER IH SCH ×2 (10:10→21:24)
[2020-11-15] MEDS: NICOTINE 7 MG/24 HOURS TOPICAL PATCH TD SCH (10:10)
[2020-11-15] MEDS: amLODIPine BESYLATE 10 MG TABLET (FP) PO SCH (10:10)
[2020-11-15] MEDS: ACETAMINOPHEN 325 MG TABLET (FP) PO PRN ×2 (10:11→21:25)
[2020-11-15] MEDS: hydrOXYzine PAMOATE 25 MG CAPSULE (FP) PO PRN (21:25)
[2020-11-15] MEDS: MELATONIN 5 MG TABLETS PO SCH (21:25)
[2020-11-15] MEDS: THIAMINE HCL 100 MG TABLET (FP) PO SCH (21:25)
[2020-11-16] MEDS: FAMOTIDINE 20 MG TABLET PO SCH ×2 (06:22→21:09)
[2020-11-16] MEDS ORDERED: PT OWN MED DRAWER 7, Y5N ONE ×2 (08:40→18:35)
[2020-11-16] MEDS: ACETAMINOPHEN 325 MG TABLET (FP) PO PRN (10:04)
[2020-11-16] MEDS: PRENATAL VITAMINS W/ FOLIC ACID TABLET (FP) PO SCH (10:05)
[2020-11-16] MEDS: amLODIPine BESYLATE 10 MG TABLET (FP) PO SCH (10:05)
[2020-11-16] MEDS: BUDESONIDE/FORMETEROL FUMARATE 160/4.5 mcg INHALER IH SCH ×2 (10:05→21:10)
[2020-11-16] MEDS: NICOTINE 7 MG/24 HOURS TOPICAL PATCH TD SCH (10:05)
[2020-11-16] MEDS: MELATONIN 5 MG TABLETS PO SCH (21:09)
[2020-11-16] MEDS: THIAMINE HCL 100 MG TABLET (FP) PO SCH (21:10)
[2020-11-16] MEDS: IBUPROFEN 400 MG TABLET (FP) PO PRN (21:11)
[2020-11-17] MEDS: FAMOTIDINE 20 MG TABLET PO SCH ×2 (06:40→21:33)
[2020-11-17] MEDS: PRENATAL VITAMINS W/ FOLIC ACID TABLET (FP) PO SCH (09:39)
[2020-11-17] MEDS: amLODIPine BESYLATE 10 MG TABLET (FP) PO SCH (09:39)
[2020-11-17] MEDS: NICOTINE 7 MG/24 HOURS TOPICAL PATCH TD SCH (09:39)
[2020-11-17] MEDS: BUDESONIDE/FORMETEROL FUMARATE 160/4.5 mcg INHALER IH SCH ×2 (09:39→21:33)
[2020-11-17] MEDS: ACETAMINOPHEN 325 MG TABLET (FP) PO PRN (09:41)
[2020-11-17] MEDS ORDERED: COLLOIDAL OATMEAL 1 BAR EACH TP PRN (15:21)
[2020-11-17] MEDS ORDERED: PT OWN MED DRAWER 7, Y5N ONE (18:43)
[2020-11-17] MEDS: IBUPROFEN 400 MG TABLET (FP) PO PRN (21:33)
[2020-11-17] MEDS: THIAMINE HCL 100 MG TABLET (FP) PO SCH (21:33)
[2020-11-17] MEDS: MELATONIN 5 MG TABLETS PO SCH (21:33)
[2020-11-18] MEDS: FAMOTIDINE 20 MG TABLET PO SCH ×2 (05:56→21:11)
[2020-11-18] MEDS: NICOTINE 7 MG/24 HOURS TOPICAL PATCH TD SCH (09:20)
[2020-11-18] MEDS: PRENATAL VITAMINS W/ FOLIC ACID TABLET (FP) PO SCH (09:20)
[2020-11-18] MEDS: amLODIPine BESYLATE 10 MG TABLET (FP) PO SCH (09:21)
[2020-11-18] MEDS: BUDESONIDE/FORMETEROL FUMARATE 160/4.5 mcg INHALER IH SCH ×2 (09:21→21:13)
[2020-11-18] MEDS: IBUPROFEN 400 MG TABLET (FP) PO PRN ×2 (09:23→21:11)
[2020-11-18] MEDS: MINERAL OIL/PETROLAT/WATER TOPICAL CREAM 113 GM JAR TP SCH (15:51)
[2020-11-18] MEDS: hydrOXYzine PAMOATE 25 MG CAPSULE (FP) PO PRN (21:11)
[2020-11-18] MEDS: MELATONIN 5 MG TABLETS PO SCH (21:11)
[2020-11-18] MEDS: THIAMINE HCL 100 MG TABLET (FP) PO SCH (21:13)
[2020-11-19] MEDS: FAMOTIDINE 20 MG TABLET PO SCH ×2 (06:36→21:11)
[2020-11-19] MEDS: NICOTINE 7 MG/24 HOURS TOPICAL PATCH TD SCH (09:29)
[2020-11-19] MEDS: PRENATAL VITAMINS W/ FOLIC ACID TABLET (FP) PO SCH (09:29)
[2020-11-19] MEDS: MINERAL OIL/PETROLAT/WATER TOPICAL CREAM 113 GM JAR TP SCH (09:29)
[2020-11-19] MEDS: BUDESONIDE/FORMETEROL FUMARATE 160/4.5 mcg INHALER IH SCH ×2 (09:29→21:12)
[2020-11-19] MEDS: amLODIPine BESYLATE 10 MG TABLET (FP) PO SCH (09:30)
[2020-11-19] MEDS: IBUPROFEN 400 MG TABLET (FP) PO PRN ×2 (09:32→21:13)
[2020-11-19] MEDS: MELATONIN 5 MG TABLETS PO SCH (21:12)
[2020-11-19] MEDS: THIAMINE HCL 100 MG TABLET (FP) PO SCH (21:12)
[2020-11-20] MEDS: FAMOTIDINE 20 MG TABLET PO SCH ×2 (06:10→21:30)
[2020-11-20] MEDS: BUDESONIDE/FORMETEROL FUMARATE 160/4.5 mcg INHALER IH SCH ×2 (09:34→21:32)
[2020-11-20] MEDS: amLODIPine BESYLATE 10 MG TABLET (FP) PO SCH (09:34)
[2020-11-20] MEDS: PRENATAL VITAMINS W/ FOLIC ACID TABLET (FP) PO SCH (09:35)
[2020-11-20] MEDS: NICOTINE 7 MG/24 HOURS TOPICAL PATCH TD SCH (09:35)
[2020-11-20] MEDS: MINERAL OIL/PETROLAT/WATER TOPICAL CREAM 113 GM JAR TP SCH (09:35)
[2020-11-20] MEDS: IBUPROFEN 400 MG TABLET (FP) PO PRN ×2 (09:36→21:30)
[2020-11-20] MEDS ORDERED: PT OWN MED DRAWER 7, Y5N ONE (18:49)
[2020-11-20] MEDS: MELATONIN 5 MG TABLETS PO SCH (21:30)
[2020-11-20] MEDS: THIAMINE HCL 100 MG TABLET (FP) PO SCH (21:32)
[2020-11-20] MEDS: HYDROCORTISONE 2.5% TOPICAL CREAM 30 GM TUBE RC SCH (21:33)
[2020-11-21] MEDS: FAMOTIDINE 20 MG TABLET PO SCH ×2 (05:57→21:10)
[2020-11-21] MEDS: amLODIPine BESYLATE 10 MG TABLET (FP) PO SCH (10:01)
[2020-11-21] MEDS: NICOTINE 7 MG/24 HOURS TOPICAL PATCH TD SCH (10:02)
[2020-11-21] MEDS: IBUPROFEN 400 MG TABLET (FP) PO PRN ×2 (10:02→21:10)
[2020-11-21] MEDS: MINERAL OIL/PETROLAT/WATER TOPICAL CREAM 113 GM JAR TP SCH (10:03)
[2020-11-21] MEDS: HYDROCORTISONE 2.5% TOPICAL CREAM 30 GM TUBE RC SCH ×2 (10:03→21:11)
[2020-11-21] MEDS: BUDESONIDE/FORMETEROL FUMARATE 160/4.5 mcg INHALER IH SCH ×2 (10:04→21:09)
[2020-11-21] MEDS: PRENATAL VITAMINS W/ FOLIC ACID TABLET (FP) PO SCH (10:04)
[2020-11-21] MEDS ORDERED: PT OWN MED DRAWER 7, Y5N ONE (18:27)
[2020-11-21] MEDS: MELATONIN 5 MG TABLETS PO SCH (21:10)
[2020-11-21] MEDS: THIAMINE HCL 100 MG TABLET (FP) PO SCH (21:11)
[2020-11-22] MEDS: FAMOTIDINE 20 MG TABLET PO SCH ×2 (06:24→21:07)
[2020-11-22] MEDS: IBUPROFEN 400 MG TABLET (FP) PO PRN ×2 (09:40→21:08)
[2020-11-22] MEDS: amLODIPine BESYLATE 10 MG TABLET (FP) PO SCH (09:40)
[2020-11-22] MEDS: HYDROCORTISONE 2.5% TOPICAL CREAM 30 GM TUBE RC SCH ×2 (09:41→21:07)
[2020-11-22] MEDS: PRENATAL VITAMINS W/ FOLIC ACID TABLET (FP) PO SCH (09:42)
[2020-11-22] MEDS: BUDESONIDE/FORMETEROL FUMARATE 160/4.5 mcg INHALER IH SCH ×2 (09:42→21:08)
[2020-11-22] MEDS: NICOTINE 7 MG/24 HOURS TOPICAL PATCH TD SCH (09:42)
[2020-11-22] MEDS: MINERAL OIL/PETROLAT/WATER TOPICAL CREAM 113 GM JAR TP SCH (09:42)
[2020-11-22] MEDS ORDERED: PT OWN MED DRAWER 7, Y5N ONE (20:14)
[2020-11-22] MEDS: MELATONIN 5 MG TABLETS PO SCH (21:07)
[2020-11-22] MEDS: THIAMINE HCL 100 MG TABLET (FP) PO SCH (21:07)
[2020-11-23] MEDS: FAMOTIDINE 20 MG TABLET PO SCH ×2 (06:33→22:00)
[2020-11-23] MEDS ORDERED: PT OWN MED DRAWER 7, Y5N ONE ×2 (08:26→20:52)
[2020-11-23] MEDS: PRENATAL VITAMINS W/ FOLIC ACID TABLET (FP) PO SCH (09:54)
[2020-11-23] MEDS: NICOTINE 7 MG/24 HOURS TOPICAL PATCH TD SCH (09:54)
[2020-11-23] MEDS: HYDROCORTISONE 2.5% TOPICAL CREAM 30 GM TUBE RC SCH ×2 (09:54→22:03)
[2020-11-23] MEDS: amLODIPine BESYLATE 10 MG TABLET (FP) PO SCH (09:55)
[2020-11-23] MEDS: MINERAL OIL/PETROLAT/WATER TOPICAL CREAM 113 GM JAR TP SCH (09:55)
[2020-11-23] MEDS: BUDESONIDE/FORMETEROL FUMARATE 160/4.5 mcg INHALER IH SCH ×2 (09:55→22:12)
[2020-11-23] MEDS: IBUPROFEN 400 MG TABLET (FP) PO PRN ×2 (09:57→22:01)
[2020-11-23] MEDS: MELATONIN 5 MG TABLETS PO SCH (22:00)
[2020-11-23] MEDS: hydrOXYzine PAMOATE 25 MG CAPSULE (FP) PO PRN (22:02)
[2020-11-23] MEDS: THIAMINE HCL 100 MG TABLET (FP) PO SCH (22:13)
[2020-11-24] MEDS: FAMOTIDINE 20 MG TABLET PO SCH ×2 (06:08→21:51)
[2020-11-24] MEDS: amLODIPine BESYLATE 10 MG TABLET (FP) PO SCH (09:37)
[2020-11-24] MEDS: HYDROCORTISONE 2.5% TOPICAL CREAM 30 GM TUBE RC SCH ×2 (09:37→21:52)
[2020-11-24] MEDS: MINERAL OIL/PETROLAT/WATER TOPICAL CREAM 113 GM JAR TP SCH (09:38)
[2020-11-24] MEDS: BUDESONIDE/FORMETEROL FUMARATE 160/4.5 mcg INHALER IH SCH ×2 (09:38→21:51)
[2020-11-24] MEDS: IBUPROFEN 400 MG TABLET (FP) PO PRN ×2 (09:39→21:53)
[2020-11-24] MEDS: NICOTINE 7 MG/24 HOURS TOPICAL PATCH TD SCH (09:40)
[2020-11-24] MEDS: PRENATAL VITAMINS W/ FOLIC ACID TABLET (FP) PO SCH (09:40)
[2020-11-24 11:18] VITALS: TEMP 97.8
[2020-11-24] MEDS ORDERED: PT OWN MED DRAWER 7, Y5N ONE (18:56)
[2020-11-24] MEDS: THIAMINE HCL 100 MG TABLET (FP) PO SCH (21:51)
[2020-11-24] MEDS: MELATONIN 5 MG TABLETS PO SCH (21:51)
[2020-11-25] MEDS: FAMOTIDINE 20 MG TABLET PO SCH (06:07)
[2020-11-25 06:56] VITALS: BP 140/87; PULSE 78
== END 2020-11-25 08:40 | disposition home or self-care (01) | DRG 772 ==
LOC: YASAS 13:42 → Y5N 13:46
PROVIDERS: ADMIT Allergy & Immunology; ATTEND Allergy & Immunology
PROC: HZ42ZZZ Group Counseling for Substance Abuse Treatment, Cognitive-Behavioral (ICD-10-PCS; principal; 2020-11-11)
DX: F13.20 Sedative, hypnotic or anxiolytic dependence, uncomplicated (principal); F12.20 Cannabis dependence, uncomplicated; F17.210 Nicotine dependence, cigarettes, uncomplicated; F43.10 Post-traumatic stress disorder, unspecified; I10 Essential (primary) hypertension; J45.20 Mild intermittent asthma, uncomplicated; L98.8 Other specified disorders of the skin and subcutaneous tissue; K21.9 Gastro-esophageal reflux disease without esophagitis; E78.5 Hyperlipidemia, unspecified; G40.909 Epilepsy, unspecified, not intractable, without status epilepticus; J30.2 Other seasonal allergic rhinitis; M19.90 Unspecified osteoarthritis, unspecified site; E66.9 Obesity, unspecified; Z68.35 Body mass index [BMI] 35.0-35.9, adult; Z86.73 Personal history of transient ischemic attack (TIA), and cerebral infarction without residual deficits; Z91.010 Allergy to peanuts; Z91.018 Allergy to other foods

== ENCOUNTER 2021-04-19 11:17 | Inpatient (IN) | payer OTHER ==
[2021-04-19] MEDS ORDERED: IBUPROFEN 400 MG TABLET (FP) PO PRN (12:49)
[2021-04-19] MEDS ORDERED: ONDANSETRON *ODT* 4 MG TABLET SL PRN (12:49)
[2021-04-19] MEDS ORDERED: MAGNESIUM HYDROX 2400MG/30ML ORAL SUSPENSION 30 ML CUP PO PRN (12:49)
[2021-04-19] MEDS ORDERED: BISMUTH SUBSALICYLATE 262 MG/15 ML BTL PO PRN (12:49)
[2021-04-19] MEDS ORDERED: MENTHOL/PHENOL 1 EACH UD MM PRN (12:49)
[2021-04-19] MEDS ORDERED: ACETAMINOPHEN 325 MG TABLET (FP) PO PRN (12:49)
[2021-04-19] MEDS ORDERED: MAGNESIUM CITRATE 300 ML BOTTLE PO PRN (12:49)
[2021-04-19 13:12] VITALS: BMI 38.6
[2021-04-19] MEDS: hydrOXYzine PAMOATE 25 MG CAPSULE (FP) PO SCH ×3 (15:04→23:20)
[2021-04-19] MEDS: LORazepam 1 MG TABLET PO PRN (15:05)
[2021-04-19] MEDS: ACETAMINOPHEN 325 MG TABLET (FP) PO PRN (15:11)
[2021-04-19] MEDS ORDERED: ALBUTEROL SO4 HFA INHALER IH PRN (17:19)
[2021-04-19] MEDS: LORazepam 2 MG TABLET PO SCH ×2 (18:33→22:32)
[2021-04-19] MEDS ORDERED: PATIENT'S OWN MEDICATION (NON-FORMULARY) (Levetiracetam [Levetiracetam] 750 MG Tablet) PO SCH (22:00)
[2021-04-19] MEDS: THIAMINE HCL 100 MG TABLET (FP) PO SCH (22:31)
[2021-04-19] MEDS: levETIRAcetam 250 MG TABLET PO SCH (22:31)
[2021-04-19] MEDS: MELATONIN 5 MG TABLETS PO SCH (23:20)
[2021-04-19] MEDS: BUDESONIDE/FORMETEROL FUMARATE 160/4.5 mcg INHALER IH SCH (23:20)
[2021-04-20] MEDS: hydrOXYzine PAMOATE 25 MG CAPSULE (FP) PO SCH ×5 (05:11→22:47)
[2021-04-20] MEDS: LORazepam 2 MG TABLET PO SCH ×4 (05:11→22:48)
[2021-04-20] MEDS: ACETAMINOPHEN 325 MG TABLET (FP) PO PRN (05:11)
[2021-04-20] MEDS ORDERED: PANTOPRAZOLE 20 MG TABLET PO SCH (10:00)
[2021-04-20 10:04] LABS: HEMATOCRIT 37.6 % (35.4-49); HEMOGLOBIN 11.7 GM/dL (11.7-16.9); MCH 24.9 pg (25.7-33.7); MEAN CELL VOLUME 80.5 fl (80-96); MEAN PLT VOLUME 8.8 fl (7.5-11.1); PLATELET COUNT 367 10^3/uL (134-434); RBC 4.67 M/mm3 (4.00-5.60); RDW 22.2 % (11.9-15.9); WHITE BLOOD COUNT 6.5 K/mm3 (4.0-10.0)
[2021-04-20 10:15] LABS: ALBUMIN 3.8 g/dl (3.4-5.0); BLOOD UREA NITROGEN 11.3 mg/dL (7-18); CALCIUM 8.6 mg/dL (8.5-10.1)
[2021-04-20 10:18] LABS: CREATININE 0.9 mg/dL (0.55-1.3)
[2021-04-20] MEDS: BUDESONIDE/FORMETEROL FUMARATE 160/4.5 mcg INHALER IH SCH ×2 (10:18→22:47)
[2021-04-20] MEDS: PRENATAL VITAMINS W/ FOLIC ACID TABLET (FP) PO SCH (10:18)
[2021-04-20] MEDS: METHOCARBAMOL 500 MG TABLET PO PRN (10:18)
[2021-04-20] MEDS: levETIRAcetam 250 MG TABLET PO SCH ×2 (10:19→22:46)
[2021-04-20] MEDS: amLODIPine BESYLATE 10 MG TABLET (FP) PO SCH (10:19)
[2021-04-20 10:20] LABS: BILIRUBIN,TOTAL 0.7 mg/dL (0.2-1); TOT PROT 7.4 g/dl (6.4-8.2)
[2021-04-20] MEDS ORDERED: ENALAPRIL MALEATE 10 MG TABLET PO SCH (15:45)
[2021-04-20] MEDS: MAG HYDROX/AL HYDROX/SIMETH 30 ML UNIT-DOSE CUP PO PRN (17:38)
[2021-04-20] MEDS: THIAMINE HCL 100 MG TABLET (FP) PO SCH (22:46)
[2021-04-20] MEDS: ENALAPRIL MALEATE 10 MG TABLET PO SCH (22:47)
[2021-04-20] MEDS: MELATONIN 5 MG TABLETS PO SCH (22:47)
[2021-04-21] MEDS: ACETAMINOPHEN 325 MG TABLET (FP) PO PRN ×2 (05:35→15:15)
[2021-04-21] MEDS: hydrOXYzine PAMOATE 25 MG CAPSULE (FP) PO SCH ×4 (05:35→18:15)
[2021-04-21] MEDS: LORazepam 1 MG TABLET PO SCH ×3 (05:36→18:31)
[2021-04-21] MEDS ORDERED: PANTOPRAZOLE 20 MG TABLET PO ONE (10:00)
[2021-04-21] MEDS: PRENATAL VITAMINS W/ FOLIC ACID TABLET (FP) PO SCH (10:20)
[2021-04-21] MEDS: BUDESONIDE/FORMETEROL FUMARATE 160/4.5 mcg INHALER IH SCH (10:20)
[2021-04-21] MEDS: levETIRAcetam 250 MG TABLET PO SCH (10:20)
[2021-04-21] MEDS: ENALAPRIL MALEATE 10 MG TABLET PO SCH (10:22)
[2021-04-21] MEDS: amLODIPine BESYLATE 10 MG TABLET (FP) PO SCH (10:22)
[2021-04-21] MEDS: METHOCARBAMOL 500 MG TABLET PO PRN (15:14)
[2021-04-21] MEDS: LORazepam 1 MG TABLET PO PRN (18:15)
[2021-04-21] MEDS: MAG HYDROX/AL HYDROX/SIMETH 30 ML UNIT-DOSE CUP PO PRN (18:16)
[2021-04-22] MEDS ORDERED: LORazepam 0.5 MG TABLET PO PRN
[2021-04-22] MEDS: levETIRAcetam 250 MG TABLET PO SCH ×3 (00:18→22:12)
[2021-04-22] MEDS: BUDESONIDE/FORMETEROL FUMARATE 160/4.5 mcg INHALER IH SCH ×3 (00:19→23:18)
[2021-04-22] MEDS: ENALAPRIL MALEATE 10 MG TABLET PO SCH ×3 (00:19→22:12)
[2021-04-22] MEDS: MELATONIN 5 MG TABLETS PO SCH ×2 (00:19→23:18)
[2021-04-22] MEDS: THIAMINE HCL 100 MG TABLET (FP) PO SCH ×2 (00:20→22:12)
[2021-04-22] MEDS: hydrOXYzine PAMOATE 25 MG CAPSULE (FP) PO SCH ×6 (00:20→22:12)
[2021-04-22] MEDS: LORazepam 1 MG TABLET PO SCH (00:22)
[2021-04-22] MEDS: MAG HYDROX/AL HYDROX/SIMETH 30 ML UNIT-DOSE CUP PO PRN (00:50)
[2021-04-22] MEDS: PANTOPRAZOLE 20 MG TABLET PO SCH (05:23)
[2021-04-22] MEDS: LORazepam 0.5 MG TABLET PO SCH ×4 (05:23→22:12)
[2021-04-22] MEDS: NICOTINE 10 MG CARTRIDGE (INHALER) IH PRN ×2 (05:37→17:32)
[2021-04-22] MEDS: PRENATAL VITAMINS W/ FOLIC ACID TABLET (FP) PO SCH (10:22)
[2021-04-22] MEDS: amLODIPine BESYLATE 10 MG TABLET (FP) PO SCH (10:22)
[2021-04-22] MEDS: METHOCARBAMOL 500 MG TABLET PO PRN (10:22)
[2021-04-22] MEDS: ACETAMINOPHEN 325 MG TABLET (FP) PO PRN ×2 (10:23→17:30)
[2021-04-23] MEDS ORDERED: LORazepam 0.5 MG TABLET PO ONE (05:00)
[2021-04-23] MEDS: hydrOXYzine PAMOATE 25 MG CAPSULE (FP) PO SCH (05:37)
[2021-04-23] MEDS: PANTOPRAZOLE 20 MG TABLET PO SCH (05:37)
[2021-04-23 06:44] VITALS: BP 133/78; PULSE 87; TEMP 97.7
== END 2021-04-23 10:03 | disposition home or self-care (01) | DRG 775 ==
LOC: YASAS 11:17 → Y6N 14:16
PROVIDERS: ADMIT Allergy & Immunology; ATTEND Allergy & Immunology
PROC: HZ2ZZZZ Detoxification Services for Substance Abuse Treatment (ICD-10-PCS; principal; 2021-04-19)
DX: F10.230 Alcohol dependence with withdrawal, uncomplicated (principal); F13.20 Sedative, hypnotic or anxiolytic dependence, uncomplicated; F12.20 Cannabis dependence, uncomplicated; F17.210 Nicotine dependence, cigarettes, uncomplicated; I10 Essential (primary) hypertension; J45.20 Mild intermittent asthma, uncomplicated; K21.9 Gastro-esophageal reflux disease without esophagitis; M17.0 Bilateral primary osteoarthritis of knee; M19.072 Primary osteoarthritis, left ankle and foot; M19.071 Primary osteoarthritis, right ankle and foot; I69.854 Hemiplegia and hemiparesis following other cerebrovascular disease affecting left non-dominant side; Z88.8 Allergy status to other drugs, medicaments and biological substances; Z91.018 Allergy to other foods; Z59.01 Sheltered homelessness
CPT/HCPCS: 36415; 80053; 85027; 86780; C9803; U0003; U0005

== ENCOUNTER 2021-05-18 14:31 | Inpatient (IN) | payer OTHER ==
[2021-05-18] MEDS ORDERED: IBUPROFEN 400 MG TABLET (FP) PO PRN (14:59)
[2021-05-18] MEDS ORDERED: NICOTINE 10 MG CARTRIDGE (INHALER) IH PRN (14:59)
[2021-05-18] MEDS ORDERED: ONDANSETRON *ODT* 4 MG TABLET SL PRN (14:59)
[2021-05-18] MEDS ORDERED: ACETAMINOPHEN 325 MG TABLET (FP) PO PRN (14:59)
[2021-05-18] MEDS ORDERED: BISMUTH SUBSALICYLATE 262 MG/15 ML BTL PO PRN (14:59)
[2021-05-18] MEDS ORDERED: MAGNESIUM HYDROX 2400MG/30ML ORAL SUSPENSION 30 ML CUP PO PRN (14:59)
[2021-05-18] MEDS ORDERED: MAGNESIUM CITRATE 300 ML BOTTLE PO PRN (14:59)
[2021-05-18] MEDS ORDERED: MAG HYDROX/AL HYDROX/SIMETH 30 ML UNIT-DOSE CUP PO PRN (14:59)
[2021-05-18] MEDS ORDERED: MENTHOL/PHENOL 1 EACH UD MM PRN (14:59)
[2021-05-18] MEDS ORDERED: chlordiazePOXIDE HCL 25 MG CAPSULE PO PRN (14:59)
[2021-05-18 17:18] VITALS: BMI 38.0
[2021-05-18] MEDS: hydrOXYzine PAMOATE 25 MG CAPSULE (FP) PO SCH ×2 (18:49→22:18)
[2021-05-18] MEDS: chlordiazePOXIDE HCL 25 MG CAPSULE PO SCH ×2 (18:49→22:20)
[2021-05-18] MEDS: METHOCARBAMOL 500 MG TABLET PO PRN (18:49)
[2021-05-18] MEDS: PRENATAL VITAMINS W/ FOLIC ACID TABLET (FP) PO SCH (18:54)
[2021-05-18] MEDS: NICOTINE 14 MG/24 HOURS TOPICAL PATCH TD SCH (18:54)
[2021-05-18] MEDS: MELATONIN 5 MG TABLETS PO SCH (22:18)
[2021-05-18] MEDS: THIAMINE HCL 100 MG TABLET (FP) PO SCH (22:19)
[2021-05-18] MEDS: ACETAMINOPHEN 325 MG TABLET (FP) PO PRN (22:19)
[2021-05-19] MEDS: hydrOXYzine PAMOATE 25 MG CAPSULE (FP) PO SCH ×5 (05:22→22:10)
[2021-05-19] MEDS: chlordiazePOXIDE HCL 25 MG CAPSULE PO SCH ×4 (05:22→22:11)
[2021-05-19 10:29] LABS: HEMATOCRIT 34.7 % (35.4-49); HEMOGLOBIN 10.5 GM/dL (11.7-16.9); MCHC 30.4 g/dl (32.0-35.9); MEAN CELL VOLUME 82.4 fl (80-96); MEAN PLT VOLUME 8.9 fl (7.5-11.1); PLATELET COUNT 219 10^3/uL (134-434); RBC 4.21 M/mm3 (4.00-5.60); RDW 23.5 % (11.9-15.9); WHITE BLOOD COUNT 5.8 K/mm3 (4.0-10.0)
[2021-05-19 10:44] LABS: ALBUMIN 3.3 g/dl (3.4-5.0); CALCIUM 8.8 mg/dL (8.5-10.1)
[2021-05-19 10:45] LABS: BLOOD UREA NITROGEN 20.5 mg/dL (7-18)
[2021-05-19] MEDS: NICOTINE 14 MG/24 HOURS TOPICAL PATCH TD SCH (10:45)
[2021-05-19] MEDS: PRENATAL VITAMINS W/ FOLIC ACID TABLET (FP) PO SCH (10:46)
[2021-05-19] MEDS: ACETAMINOPHEN 325 MG TABLET (FP) PO PRN (10:47)
[2021-05-19 10:48] LABS: CREATININE 0.8 mg/dL (0.55-1.3)
[2021-05-19 10:49] LABS: BILIRUBIN,TOTAL 0.3 mg/dL (0.2-1); TOT PROT 6.2 g/dl (6.4-8.2)
[2021-05-19] MEDS ORDERED: ALBUTEROL SO4 HFA INHALER IH PRN (12:13)
[2021-05-19] MEDS ORDERED: levETIRAcetam 500 MG TABLET (FP) PO SCH (12:30)
[2021-05-19] MEDS: ASPIRIN 81 MG CHEWABLE TABLETS PO SCH (19:35)
[2021-05-19] MEDS ORDERED: PANTOPRAZOLE 40 MG TABLET PO SCH (20:15)
[2021-05-19] MEDS: MELATONIN 5 MG TABLETS PO SCH (22:10)
[2021-05-19] MEDS: FAMOTIDINE 20 MG TABLET PO SCH (22:10)
[2021-05-19] MEDS: ATORVASTATIN CA 40 MG TABLET (FP) PO SCH (22:10)
[2021-05-19] MEDS: THIAMINE HCL 100 MG TABLET (FP) PO SCH (22:14)
[2021-05-19] MEDS: BUDESONIDE/FORMETEROL FUMARATE 160/4.5 mcg INHALER IH SCH (22:14)
[2021-05-20] MEDS: chlordiazePOXIDE HCL 25 MG CAPSULE PO SCH ×4 (05:34→22:10)
[2021-05-20] MEDS: hydrOXYzine PAMOATE 25 MG CAPSULE (FP) PO SCH ×5 (05:34→22:09)
[2021-05-20] MEDS: OMEPRAZOLE 40 MG PO SCH (06:13)
[2021-05-20] MEDS: PRENATAL VITAMINS W/ FOLIC ACID TABLET (FP) PO SCH (10:05)
[2021-05-20] MEDS: BUDESONIDE/FORMETEROL FUMARATE 160/4.5 mcg INHALER IH SCH ×2 (10:06→22:11)
[2021-05-20] MEDS: ACETAMINOPHEN 325 MG TABLET (FP) PO PRN ×2 (10:22→17:55)
[2021-05-20] MEDS: ASPIRIN 81 MG CHEWABLE TABLETS PO SCH (10:23)
[2021-05-20] MEDS: FAMOTIDINE 20 MG TABLET PO SCH ×2 (10:23→22:09)
[2021-05-20] MEDS: amLODIPine BESYLATE 10 MG TABLET (FP) PO SCH (10:23)
[2021-05-20] MEDS: NICOTINE 14 MG/24 HOURS TOPICAL PATCH TD SCH (10:24)
[2021-05-20] MEDS: ATORVASTATIN CA 40 MG TABLET (FP) PO SCH (22:09)
[2021-05-20] MEDS: MELATONIN 5 MG TABLETS PO SCH (22:09)
[2021-05-20] MEDS: THIAMINE HCL 100 MG TABLET (FP) PO SCH (22:09)
[2021-05-21] MEDS ORDERED: chlordiazePOXIDE HCL 10 MG CAPSULE PO PRN
[2021-05-21] MEDS: chlordiazePOXIDE HCL 10 MG CAPSULE PO SCH ×4 (06:02→22:49)
[2021-05-21] MEDS ORDERED: FAMOTIDINE 20 MG TABLET PO SCH (07:00)
[2021-05-21] MEDS: hydrOXYzine PAMOATE 25 MG CAPSULE (FP) PO SCH ×4 (07:02→22:48)
[2021-05-21] MEDS: ACETAMINOPHEN 325 MG TABLET (FP) PO PRN (07:04)
[2021-05-21] MEDS: OMEPRAZOLE 40 MG PO SCH (07:04)
[2021-05-21] MEDS ORDERED: FAMOTIDINE 20 MG TABLET PO PRN (07:55)
[2021-05-21] MEDS: amLODIPine BESYLATE 10 MG TABLET (FP) PO SCH (11:12)
[2021-05-21] MEDS: ASPIRIN 81 MG CHEWABLE TABLETS PO SCH (11:12)
[2021-05-21] MEDS: PRENATAL VITAMINS W/ FOLIC ACID TABLET (FP) PO SCH (11:13)
[2021-05-21] MEDS: BUDESONIDE/FORMETEROL FUMARATE 160/4.5 mcg INHALER IH SCH ×2 (11:14→22:49)
[2021-05-21] MEDS: NICOTINE 14 MG/24 HOURS TOPICAL PATCH TD SCH (11:49)
[2021-05-21] MEDS: ATORVASTATIN CA 40 MG TABLET (FP) PO SCH (22:48)
[2021-05-21] MEDS: THIAMINE HCL 100 MG TABLET (FP) PO SCH (22:49)
[2021-05-21] MEDS: MELATONIN 5 MG TABLETS PO SCH (22:49)
[2021-05-21] MEDS: METHOCARBAMOL 500 MG TABLET PO PRN (22:52)
[2021-05-22] MEDS: hydrOXYzine PAMOATE 25 MG CAPSULE (FP) PO SCH ×6 (06:49→22:21)
[2021-05-22] MEDS: chlordiazePOXIDE HCL 10 MG CAPSULE PO SCH ×2 (06:49→18:02)
[2021-05-22] MEDS: METHOCARBAMOL 500 MG TABLET PO PRN ×2 (06:50→22:22)
[2021-05-22] MEDS: OMEPRAZOLE 40 MG PO SCH (06:52)
[2021-05-22] MEDS: PRENATAL VITAMINS W/ FOLIC ACID TABLET (FP) PO SCH (10:11)
[2021-05-22] MEDS: ASPIRIN 81 MG CHEWABLE TABLETS PO SCH (10:12)
[2021-05-22] MEDS: amLODIPine BESYLATE 10 MG TABLET (FP) PO SCH (10:12)
[2021-05-22] MEDS: BUDESONIDE/FORMETEROL FUMARATE 160/4.5 mcg INHALER IH SCH ×2 (10:14→22:21)
[2021-05-22] MEDS: NICOTINE 14 MG/24 HOURS TOPICAL PATCH TD SCH (10:14)
[2021-05-22] MEDS: ACETAMINOPHEN 325 MG TABLET (FP) PO PRN (10:15)
[2021-05-22] MEDS: THIAMINE HCL 100 MG TABLET (FP) PO SCH (22:20)
[2021-05-22] MEDS: ATORVASTATIN CA 40 MG TABLET (FP) PO SCH (22:20)
[2021-05-22] MEDS: MELATONIN 5 MG TABLETS PO SCH (22:22)
[2021-05-23] MEDS ORDERED: chlordiazePOXIDE HCL 10 MG CAPSULE PO ONE (05:00)
[2021-05-23] MEDS: hydrOXYzine PAMOATE 25 MG CAPSULE (FP) PO SCH ×5 (07:30→22:17)
[2021-05-23] MEDS: OMEPRAZOLE 40 MG PO SCH (07:58)
[2021-05-23] MEDS: METHOCARBAMOL 500 MG TABLET PO PRN ×2 (10:06→17:49)
[2021-05-23] MEDS: ASPIRIN 81 MG CHEWABLE TABLETS PO SCH (10:08)
[2021-05-23] MEDS: amLODIPine BESYLATE 10 MG TABLET (FP) PO SCH (10:08)
[2021-05-23] MEDS: NICOTINE 14 MG/24 HOURS TOPICAL PATCH TD SCH (10:10)
[2021-05-23] MEDS: BUDESONIDE/FORMETEROL FUMARATE 160/4.5 mcg INHALER IH SCH ×2 (10:10→22:18)
[2021-05-23] MEDS: PRENATAL VITAMINS W/ FOLIC ACID TABLET (FP) PO SCH (10:10)
[2021-05-23] MEDS: ATORVASTATIN CA 40 MG TABLET (FP) PO SCH (22:17)
[2021-05-23] MEDS: THIAMINE HCL 100 MG TABLET (FP) PO SCH (22:17)
[2021-05-23] MEDS: MELATONIN 5 MG TABLETS PO SCH (22:18)
[2021-05-24] MEDS: hydrOXYzine PAMOATE 25 MG CAPSULE (FP) PO SCH ×2 (06:24→09:02)
[2021-05-24] MEDS: OMEPRAZOLE 40 MG PO SCH (06:24)
[2021-05-24] MEDS: amLODIPine BESYLATE 10 MG TABLET (FP) PO SCH (09:01)
[2021-05-24] MEDS: ASPIRIN 81 MG CHEWABLE TABLETS PO SCH (09:01)
[2021-05-24] MEDS: PRENATAL VITAMINS W/ FOLIC ACID TABLET (FP) PO SCH (09:02)
[2021-05-24] MEDS: BUDESONIDE/FORMETEROL FUMARATE 160/4.5 mcg INHALER IH SCH (09:02)
[2021-05-24] MEDS: NICOTINE 14 MG/24 HOURS TOPICAL PATCH TD SCH (09:03)
[2021-05-24 09:56] VITALS: BP 145/75; PULSE 104; TEMP 98.1
== END 2021-05-24 09:04 | disposition home or self-care (01) | DRG 775 ==
LOC: YASAS 14:31 → Y6N 17:34 → Y3N 05-21 20:13 → Y6N 05-21 22:38
PROVIDERS: ADMIT Allergy & Immunology; ATTEND Allergy & Immunology
PROC: HZ2ZZZZ Detoxification Services for Substance Abuse Treatment (ICD-10-PCS; principal; 2021-05-18)
DX: F10.230 Alcohol dependence with withdrawal, uncomplicated (principal); F13.230 Sedative, hypnotic or anxiolytic dependence with withdrawal, uncomplicated; F12.20 Cannabis dependence, uncomplicated; F17.210 Nicotine dependence, cigarettes, uncomplicated; D64.9 Anemia, unspecified; I10 Essential (primary) hypertension; I69.854 Hemiplegia and hemiparesis following other cerebrovascular disease affecting left non-dominant side; J45.20 Mild intermittent asthma, uncomplicated; K21.9 Gastro-esophageal reflux disease without esophagitis; G40.909 Epilepsy, unspecified, not intractable, without status epilepticus; M17.0 Bilateral primary osteoarthritis of knee; M19.071 Primary osteoarthritis, right ankle and foot; M19.072 Primary osteoarthritis, left ankle and foot; Z88.8 Allergy status to other drugs, medicaments and biological substances; Z91.018 Allergy to other foods; Z59.01 Sheltered homelessness
CPT/HCPCS: 36415; 80053; 80177; 85027; 86780; C9803; U0003; U0005

== ENCOUNTER 2021-07-07 13:01 | Inpatient (IN) | payer OTHER ==
[2021-07-07] MEDS ORDERED: MAGNESIUM HYDROX 2400MG/30ML ORAL SUSPENSION 30 ML CUP PO PRN (13:24)
[2021-07-07] MEDS ORDERED: chlordiazePOXIDE HCL 25 MG CAPSULE PO PRN (13:24)
[2021-07-07] MEDS ORDERED: LOPERAMIDE HCL 2 MG CAPSULE PO PRN (13:24)
[2021-07-07] MEDS ORDERED: MAGNESIUM CITRATE 300 ML BOTTLE PO PRN (13:24)
[2021-07-07] MEDS ORDERED: ACETAMINOPHEN 325 MG TABLET (FP) PO PRN (13:24)
[2021-07-07] MEDS ORDERED: NICOTINE 10 MG CARTRIDGE (INHALER) IH PRN (13:24)
[2021-07-07] MEDS ORDERED: BISMUTH SUBSALICYLATE 262 MG/15 ML BTL PO PRN (13:24)
[2021-07-07] MEDS ORDERED: MENTHOL/PHENOL 1 EACH UD MM PRN (13:24)
[2021-07-07] MEDS ORDERED: ONDANSETRON *ODT* 4 MG TABLET SL PRN (13:24)
[2021-07-07] MEDS ORDERED: MAG HYDROX/AL HYDROX/SIMETH 30 ML UNIT-DOSE CUP PO PRN (13:24)
[2021-07-07] MEDS ORDERED: ALBUTEROL SO4 HFA INHALER IH PRN (13:27)
[2021-07-07 15:00] VITALS: BMI 37.0
[2021-07-07 17:16] LABS: HEMATOCRIT 35.1 % (35.4-49); HEMOGLOBIN 10.7 GM/dL (11.7-16.9); MCH 24.9 pg (25.7-33.7); MCHC 30.6 g/dl (32.0-35.9); MEAN CELL VOLUME 81.4 fl (80-96); MEAN PLT VOLUME 8.3 fl (7.5-11.1); PLATELET COUNT 290 10^3/uL (134-434); RBC 4.31 M/mm3 (4.00-5.60); RDW 23.2 % (11.9-15.9); WHITE BLOOD COUNT 9.2 K/mm3 (4.0-10.0)
[2021-07-07 17:24] LABS: ALBUMIN 3.9 g/dl (3.4-5.0); BLOOD UREA NITROGEN 6.5 mg/dL (7-18)
[2021-07-07 17:26] LABS: CREATININE 0.8 mg/dL (0.55-1.3)
[2021-07-07 17:28] LABS: TOT PROT 7.3 g/dl (6.4-8.2)
[2021-07-07] MEDS: chlordiazePOXIDE HCL 25 MG CAPSULE PO SCH ×3 (18:19→22:16)
[2021-07-07] MEDS: hydrOXYzine PAMOATE 25 MG CAPSULE (FP) PO SCH ×3 (18:20→22:17)
[2021-07-07] MEDS: METHOCARBAMOL 500 MG TABLET PO PRN (18:20)
[2021-07-07] MEDS: IBUPROFEN 400 MG TABLET (FP) PO PRN (18:22)
[2021-07-07] MEDS: NICOTINE 21 MG/24 HOURS TOPICAL PATCH TD SCH (18:36)
[2021-07-07] MEDS: PRENATAL VITAMINS W/ FOLIC ACID TABLET (FP) PO SCH (18:37)
[2021-07-07] MEDS: amLODIPine BESYLATE 10 MG TABLET (FP) PO SCH (19:42)
[2021-07-07] MEDS: ACETAMINOPHEN 325 MG TABLET (FP) PO PRN (19:43)
[2021-07-07] MEDS ORDERED: levETIRAcetam 500 MG TABLET (FP) PO SCH (22:00)
[2021-07-07] MEDS: FAMOTIDINE 20 MG TABLET PO SCH (22:16)
[2021-07-07] MEDS: ENALAPRIL MALEATE 10 MG TABLET PO SCH (22:16)
[2021-07-07] MEDS: ATORVASTATIN CA 40 MG TABLET (FP) PO SCH (22:16)
[2021-07-07] MEDS: THIAMINE HCL 100 MG TABLET (FP) PO SCH (22:16)
[2021-07-07] MEDS: BUDESONIDE/FORMETEROL FUMARATE 160/4.5 mcg INHALER IH SCH (22:17)
[2021-07-07] MEDS: MELATONIN 5 MG TABLETS PO SCH (22:17)
[2021-07-07] MEDS: FLUTICASONE PROP 0.05% 16 GM NASAL SPRAY NS SCH (23:46)
[2021-07-08] MEDS: hydrOXYzine PAMOATE 25 MG CAPSULE (FP) PO SCH ×5 (05:58→22:17)
[2021-07-08] MEDS: ACETAMINOPHEN 325 MG TABLET (FP) PO PRN ×3 (05:59→22:18)
[2021-07-08] MEDS: chlordiazePOXIDE HCL 25 MG CAPSULE PO SCH ×4 (05:59→22:19)
[2021-07-08] MEDS: ASPIRIN 81 MG CHEWABLE TABLETS PO SCH (10:37)
[2021-07-08] MEDS: amLODIPine BESYLATE 10 MG TABLET (FP) PO SCH (10:37)
[2021-07-08] MEDS: ENALAPRIL MALEATE 10 MG TABLET PO SCH ×2 (10:37→22:18)
[2021-07-08] MEDS: PANTOPRAZOLE 40 MG TABLET PO SCH (10:37)
[2021-07-08] MEDS: METHOCARBAMOL 500 MG TABLET PO PRN ×2 (10:38→17:52)
[2021-07-08] MEDS: FLUTICASONE PROP 0.05% 16 GM NASAL SPRAY NS SCH ×2 (10:57→22:18)
[2021-07-08] MEDS: NICOTINE 21 MG/24 HOURS TOPICAL PATCH TD SCH (10:57)
[2021-07-08] MEDS: PRENATAL VITAMINS W/ FOLIC ACID TABLET (FP) PO SCH (10:58)
[2021-07-08] MEDS: BUDESONIDE/FORMETEROL FUMARATE 160/4.5 mcg INHALER IH SCH ×2 (10:58→22:18)
[2021-07-08] MEDS: FAMOTIDINE 20 MG TABLET PO SCH ×2 (11:15→22:17)
[2021-07-08] MEDS: IBUPROFEN 400 MG TABLET (FP) PO PRN (17:52)
[2021-07-08] MEDS ORDERED: levETIRAcetam 500 MG TABLET (FP) PO ONE (21:05)
[2021-07-08] MEDS ORDERED: levETIRAcetam 250 MG TABLET PO ONE (21:06)
[2021-07-08] MEDS: ATORVASTATIN CA 40 MG TABLET (FP) PO SCH (22:17)
[2021-07-08] MEDS: MELATONIN 5 MG TABLETS PO SCH (22:18)
[2021-07-08] MEDS: THIAMINE HCL 100 MG TABLET (FP) PO SCH (22:29)
[2021-07-09] MEDS: chlordiazePOXIDE HCL 25 MG CAPSULE PO SCH ×4 (05:31→22:09)
[2021-07-09] MEDS: hydrOXYzine PAMOATE 25 MG CAPSULE (FP) PO SCH ×5 (05:31→22:08)
[2021-07-09] MEDS: IBUPROFEN 400 MG TABLET (FP) PO PRN ×2 (06:48→17:23)
[2021-07-09 08:08] LABS: SARS-CoV-2 NAA Not Detected (Not Detected)
[2021-07-09] MEDS: PANTOPRAZOLE 40 MG TABLET PO SCH (10:41)
[2021-07-09] MEDS: ASPIRIN 81 MG CHEWABLE TABLETS PO SCH (10:42)
[2021-07-09] MEDS: amLODIPine BESYLATE 10 MG TABLET (FP) PO SCH (10:42)
[2021-07-09] MEDS: ACETAMINOPHEN 325 MG TABLET (FP) PO PRN ×2 (10:44→22:10)
[2021-07-09] MEDS: ENALAPRIL MALEATE 10 MG TABLET PO SCH ×2 (10:49→22:09)
[2021-07-09] MEDS: PRENATAL VITAMINS W/ FOLIC ACID TABLET (FP) PO SCH (10:49)
[2021-07-09] MEDS: BUDESONIDE/FORMETEROL FUMARATE 160/4.5 mcg INHALER IH SCH ×2 (10:49→22:09)
[2021-07-09] MEDS: NICOTINE 21 MG/24 HOURS TOPICAL PATCH TD SCH (10:49)
[2021-07-09] MEDS: FAMOTIDINE 20 MG TABLET PO SCH ×2 (10:49→22:08)
[2021-07-09] MEDS: FLUTICASONE PROP 0.05% 16 GM NASAL SPRAY NS SCH ×2 (10:58→22:08)
[2021-07-09] MEDS ORDERED: ALBUTEROL SO4 2.5/IPRATROPIUM 0.5 INH SOL 3 ML VIAL.NEB. NEB PRN (11:15)
[2021-07-09] MEDS: GABAPENTIN 100 MG CAPSULE PO SCH ×2 (13:17→22:08)
[2021-07-09] MEDS: SILVER SULFADIAZINE 1% TOP CREAM 50 GM JAR TP SCH ×2 (13:22→22:19)
[2021-07-09] MEDS: METHOCARBAMOL 500 MG TABLET PO PRN (17:23)
[2021-07-09] MEDS: ATORVASTATIN CA 40 MG TABLET (FP) PO SCH (22:08)
[2021-07-09] MEDS: MELATONIN 5 MG TABLETS PO SCH (22:09)
[2021-07-09] MEDS: THIAMINE HCL 100 MG TABLET (FP) PO SCH (22:09)
[2021-07-10] MEDS ORDERED: chlordiazePOXIDE HCL 10 MG CAPSULE PO PRN
[2021-07-10] MEDS: chlordiazePOXIDE HCL 10 MG CAPSULE PO SCH ×4 (06:39→22:21)
[2021-07-10] MEDS: hydrOXYzine PAMOATE 25 MG CAPSULE (FP) PO SCH ×5 (06:39→22:39)
[2021-07-10] MEDS: ACETAMINOPHEN 325 MG TABLET (FP) PO PRN ×2 (06:43→15:52)
[2021-07-10] MEDS: PRENATAL VITAMINS W/ FOLIC ACID TABLET (FP) PO SCH (10:36)
[2021-07-10] MEDS: NICOTINE 21 MG/24 HOURS TOPICAL PATCH TD SCH (10:36)
[2021-07-10] MEDS: ASPIRIN 81 MG CHEWABLE TABLETS PO SCH (10:36)
[2021-07-10] MEDS: ENALAPRIL MALEATE 10 MG TABLET PO SCH ×2 (10:36→22:22)
[2021-07-10] MEDS: FAMOTIDINE 20 MG TABLET PO SCH ×2 (10:36→22:22)
[2021-07-10] MEDS: amLODIPine BESYLATE 10 MG TABLET (FP) PO SCH (10:37)
[2021-07-10] MEDS: PANTOPRAZOLE 40 MG TABLET PO SCH (10:37)
[2021-07-10] MEDS: GABAPENTIN 100 MG CAPSULE PO SCH ×2 (10:37→22:22)
[2021-07-10] MEDS: METHOCARBAMOL 500 MG TABLET PO PRN (10:38)
[2021-07-10] MEDS: SILVER SULFADIAZINE 1% TOP CREAM 50 GM JAR TP SCH ×2 (10:41→22:23)
[2021-07-10] MEDS: FLUTICASONE PROP 0.05% 16 GM NASAL SPRAY NS SCH ×2 (10:41→22:21)
[2021-07-10] MEDS: BUDESONIDE/FORMETEROL FUMARATE 160/4.5 mcg INHALER IH SCH ×2 (10:41→22:23)
[2021-07-10] MEDS: IBUPROFEN 400 MG TABLET (FP) PO PRN (17:51)
[2021-07-10] MEDS: THIAMINE HCL 100 MG TABLET (FP) PO SCH (22:21)
[2021-07-10] MEDS: ATORVASTATIN CA 40 MG TABLET (FP) PO SCH (22:22)
[2021-07-10] MEDS: MELATONIN 5 MG TABLETS PO SCH (22:22)
[2021-07-11] MEDS: hydrOXYzine PAMOATE 25 MG CAPSULE (FP) PO SCH ×5 (06:29→22:25)
[2021-07-11] MEDS: chlordiazePOXIDE HCL 10 MG CAPSULE PO SCH ×2 (06:30→17:16)
[2021-07-11] MEDS: ACETAMINOPHEN 325 MG TABLET (FP) PO PRN (06:31)
[2021-07-11] MEDS: PRENATAL VITAMINS W/ FOLIC ACID TABLET (FP) PO SCH (09:43)
[2021-07-11] MEDS: SILVER SULFADIAZINE 1% TOP CREAM 50 GM JAR TP SCH ×2 (09:43→22:26)
[2021-07-11] MEDS: PANTOPRAZOLE 40 MG TABLET PO SCH (09:44)
[2021-07-11] MEDS: ENALAPRIL MALEATE 10 MG TABLET PO SCH ×2 (09:44→22:25)
[2021-07-11] MEDS: ASPIRIN 81 MG CHEWABLE TABLETS PO SCH (09:44)
[2021-07-11] MEDS: amLODIPine BESYLATE 10 MG TABLET (FP) PO SCH (09:44)
[2021-07-11] MEDS: FAMOTIDINE 20 MG TABLET PO SCH ×2 (09:44→22:25)
[2021-07-11] MEDS: GABAPENTIN 100 MG CAPSULE PO SCH ×2 (09:44→22:25)
[2021-07-11] MEDS: METHOCARBAMOL 500 MG TABLET PO PRN ×2 (09:47→22:26)
[2021-07-11] MEDS: BUDESONIDE/FORMETEROL FUMARATE 160/4.5 mcg INHALER IH SCH ×2 (09:48→22:24)
[2021-07-11] MEDS: FLUTICASONE PROP 0.05% 16 GM NASAL SPRAY NS SCH ×2 (09:49→22:24)
[2021-07-11] MEDS: NICOTINE 21 MG/24 HOURS TOPICAL PATCH TD SCH (09:49)
[2021-07-11] MEDS: IBUPROFEN 400 MG TABLET (FP) PO PRN (17:18)
[2021-07-11] MEDS: MELATONIN 5 MG TABLETS PO SCH (22:25)
[2021-07-11] MEDS: ATORVASTATIN CA 40 MG TABLET (FP) PO SCH (22:25)
[2021-07-11] MEDS: THIAMINE HCL 100 MG TABLET (FP) PO SCH (22:26)
[2021-07-12] MEDS ORDERED: chlordiazePOXIDE HCL 10 MG CAPSULE PO ONE (05:00)
[2021-07-12] MEDS: ACETAMINOPHEN 325 MG TABLET (FP) PO PRN (05:49)
[2021-07-12] MEDS: hydrOXYzine PAMOATE 25 MG CAPSULE (FP) PO SCH ×2 (05:49→10:10)
[2021-07-12 09:01] VITALS: BP 120/74; PULSE 91; TEMP 97.6
[2021-07-12] MEDS: NICOTINE 21 MG/24 HOURS TOPICAL PATCH TD SCH (10:08)
[2021-07-12] MEDS: GABAPENTIN 100 MG CAPSULE PO SCH (10:08)
[2021-07-12] MEDS: PRENATAL VITAMINS W/ FOLIC ACID TABLET (FP) PO SCH (10:08)
[2021-07-12] MEDS: ENALAPRIL MALEATE 10 MG TABLET PO SCH (10:08)
[2021-07-12] MEDS: FAMOTIDINE 20 MG TABLET PO SCH (10:08)
[2021-07-12] MEDS: PANTOPRAZOLE 40 MG TABLET PO SCH (10:09)
[2021-07-12] MEDS: BUDESONIDE/FORMETEROL FUMARATE 160/4.5 mcg INHALER IH SCH (10:09)
[2021-07-12] MEDS: ASPIRIN 81 MG CHEWABLE TABLETS PO SCH (10:09)
[2021-07-12] MEDS: amLODIPine BESYLATE 10 MG TABLET (FP) PO SCH (10:09)
[2021-07-12] MEDS: FLUTICASONE PROP 0.05% 16 GM NASAL SPRAY NS SCH (10:09)
[2021-07-12] MEDS: SILVER SULFADIAZINE 1% TOP CREAM 50 GM JAR TP SCH (10:11)
== END 2021-07-12 12:06 | disposition other institution (70) | DRG 775 ==
LOC: YASAS 13:01 → Y3N 15:15
PROVIDERS: ADMIT Allergy & Immunology; ATTEND Allergy & Immunology
PROC: HZ2ZZZZ Detoxification Services for Substance Abuse Treatment (ICD-10-PCS; principal; 2021-07-07)
DX: F10.230 Alcohol dependence with withdrawal, uncomplicated (principal); F13.230 Sedative, hypnotic or anxiolytic dependence with withdrawal, uncomplicated; F12.20 Cannabis dependence, uncomplicated; F17.210 Nicotine dependence, cigarettes, uncomplicated; G62.9 Polyneuropathy, unspecified; I10 Essential (primary) hypertension; J45.20 Mild intermittent asthma, uncomplicated; K21.9 Gastro-esophageal reflux disease without esophagitis; M17.0 Bilateral primary osteoarthritis of knee; M19.071 Primary osteoarthritis, right ankle and foot; M19.072 Primary osteoarthritis, left ankle and foot; Z86.73 Personal history of transient ischemic attack (TIA), and cerebral infarction without residual deficits; Z87.828 Personal history of other (healed) physical injury and trauma; Z88.8 Allergy status to other drugs, medicaments and biological substances; Z91.018 Allergy to other foods
CPT/HCPCS: 36415; 80053; 80177; 85027; 86780; 87811; C9803-CS; U0003; U0005

== ENCOUNTER 2021-07-12 14:19 | Inpatient (IN) | payer OTHER ==
[2021-07-12] MEDS ORDERED: MENTHOL/PHENOL 1 EACH UD MM PRN (15:30)
[2021-07-12] MEDS ORDERED: MAGNESIUM HYDROX 2400MG/30ML ORAL SUSPENSION 30 ML CUP PO PRN (15:30)
[2021-07-12] MEDS ORDERED: ACETAMINOPHEN 325 MG TABLET (FP) PO PRN (15:30)
[2021-07-12] MEDS ORDERED: MAGNESIUM CITRATE 300 ML BOTTLE PO PRN (15:30)
[2021-07-12] MEDS ORDERED: P-EPHED 60MG/TRIPROLIDI 2.5MG TABLET PO PRN (15:30)
[2021-07-12] MEDS ORDERED: MAG HYDROX/AL HYDROX/SIMETH 30 ML UNIT-DOSE CUP PO PRN (15:30)
[2021-07-12] MEDS ORDERED: guaiFENesin 200 MG/10 ML 10 ML UNIT-DOSE CUPS PO PRN (15:30)
[2021-07-12] MEDS ORDERED: LOPERAMIDE HCL 2 MG CAPSULE PO PRN (15:30)
[2021-07-12] MEDS ORDERED: ALBUTEROL SO4 HFA INHALER IH PRN (16:26)
[2021-07-12] MEDS: IBUPROFEN 400 MG TABLET (FP) PO PRN (17:15)
[2021-07-12] MEDS: levETIRAcetam 250 MG TABLET PO SCH (21:28)
[2021-07-12] MEDS: THIAMINE HCL 100 MG TABLET (FP) PO SCH (21:29)
[2021-07-12] MEDS: ATORVASTATIN CA 40 MG TABLET (FP) PO SCH (21:29)
[2021-07-12] MEDS: MELATONIN 5 MG TABLETS PO SCH (21:29)
[2021-07-12] MEDS: BUDESONIDE/FORMETEROL FUMARATE 160/4.5 mcg INHALER IH SCH (21:29)
[2021-07-12] MEDS: GABAPENTIN 100 MG CAPSULE PO SCH (21:29)
[2021-07-12] MEDS: SILVER SULFADIAZINE 1% TOP CREAM 50 GM JAR TP SCH (23:42)
[2021-07-13] MEDS: IBUPROFEN 400 MG TABLET (FP) PO PRN ×2 (07:08→17:29)
[2021-07-13] MEDS: BUDESONIDE/FORMETEROL FUMARATE 160/4.5 mcg INHALER IH SCH ×2 (09:54→22:03)
[2021-07-13] MEDS: ASPIRIN 81 MG CHEWABLE TABLETS PO SCH (09:54)
[2021-07-13] MEDS: GABAPENTIN 100 MG CAPSULE PO SCH ×2 (09:54→21:36)
[2021-07-13] MEDS: amLODIPine BESYLATE 10 MG TABLET (FP) PO SCH (09:54)
[2021-07-13] MEDS: PANTOPRAZOLE 40 MG TABLET PO SCH (09:54)
[2021-07-13] MEDS: levETIRAcetam 250 MG TABLET PO SCH ×2 (09:55→21:34)
[2021-07-13] MEDS: ENALAPRIL MALEATE 10 MG TABLET PO SCH (09:55)
[2021-07-13] MEDS: PRENATAL VITAMINS W/ FOLIC ACID TABLET (FP) PO SCH (09:55)
[2021-07-13] MEDS: NICOTINE 7 MG/24 HOURS TOPICAL PATCH TD SCH (09:56)
[2021-07-13] MEDS ORDERED: PATIENT'S OWN MEDICATION (NON-FORMULARY) (Omeprazole 20 MG Capsule.Dr) PO SCH (10:00)
[2021-07-13 10:57] LABS: HIV INTERPRETATION NEGATIVE (NEGATIVE)
[2021-07-13] MEDS: SILVER SULFADIAZINE 1% TOP CREAM 50 GM JAR TP SCH ×2 (11:27→21:36)
[2021-07-13] MEDS: METHOCARBAMOL 500 MG TABLET PO PRN ×2 (12:57→21:39)
[2021-07-13] MEDS: THIAMINE HCL 100 MG TABLET (FP) PO SCH (21:36)
[2021-07-13] MEDS: ATORVASTATIN CA 40 MG TABLET (FP) PO SCH (21:36)
[2021-07-13] MEDS: MELATONIN 5 MG TABLETS PO SCH (21:36)
[2021-07-14] MEDS: IBUPROFEN 400 MG TABLET (FP) PO PRN ×2 (06:36→15:49)
[2021-07-14] MEDS: METHOCARBAMOL 500 MG TABLET PO PRN ×3 (06:36→21:30)
[2021-07-14] MEDS: NICOTINE 7 MG/24 HOURS TOPICAL PATCH TD SCH (09:50)
[2021-07-14] MEDS: PANTOPRAZOLE 40 MG TABLET PO SCH (09:51)
[2021-07-14] MEDS: PRENATAL VITAMINS W/ FOLIC ACID TABLET (FP) PO SCH (09:51)
[2021-07-14] MEDS: GABAPENTIN 100 MG CAPSULE PO SCH ×2 (09:51→21:30)
[2021-07-14] MEDS: amLODIPine BESYLATE 10 MG TABLET (FP) PO SCH (09:51)
[2021-07-14] MEDS: ASPIRIN 81 MG CHEWABLE TABLETS PO SCH (09:51)
[2021-07-14] MEDS: BUDESONIDE/FORMETEROL FUMARATE 160/4.5 mcg INHALER IH SCH ×2 (09:52→21:29)
[2021-07-14] MEDS: SILVER SULFADIAZINE 1% TOP CREAM 50 GM JAR TP SCH ×2 (09:52→21:31)
[2021-07-14] MEDS: ENALAPRIL MALEATE 10 MG TABLET PO SCH (09:52)
[2021-07-14] MEDS: levETIRAcetam 250 MG TABLET PO SCH ×2 (09:53→21:29)
[2021-07-14] MEDS: NICOTINE 10 MG CARTRIDGE (INHALER) IH PRN (13:04)
[2021-07-14] MEDS: MELATONIN 5 MG TABLETS PO SCH (21:30)
[2021-07-14] MEDS: hydrOXYzine PAMOATE 25 MG CAPSULE (FP) PO PRN (21:30)
[2021-07-14] MEDS: ATORVASTATIN CA 40 MG TABLET (FP) PO SCH (21:30)
[2021-07-14] MEDS: THIAMINE HCL 100 MG TABLET (FP) PO SCH (21:31)
[2021-07-15] MEDS: PANTOPRAZOLE 40 MG TABLET PO SCH (06:30)
[2021-07-15] MEDS: IBUPROFEN 400 MG TABLET (FP) PO PRN ×2 (06:31→15:01)
[2021-07-15] MEDS: PRENATAL VITAMINS W/ FOLIC ACID TABLET (FP) PO SCH (09:58)
[2021-07-15] MEDS: NICOTINE 7 MG/24 HOURS TOPICAL PATCH TD SCH (09:58)
[2021-07-15] MEDS: amLODIPine BESYLATE 10 MG TABLET (FP) PO SCH (09:59)
[2021-07-15] MEDS: BUDESONIDE/FORMETEROL FUMARATE 160/4.5 mcg INHALER IH SCH ×2 (09:59→21:20)
[2021-07-15] MEDS: GABAPENTIN 100 MG CAPSULE PO SCH ×2 (09:59→21:21)
[2021-07-15] MEDS: ENALAPRIL MALEATE 10 MG TABLET PO SCH (09:59)
[2021-07-15] MEDS: ASPIRIN 81 MG CHEWABLE TABLETS PO SCH (09:59)
[2021-07-15] MEDS: SILVER SULFADIAZINE 1% TOP CREAM 50 GM JAR TP SCH ×2 (10:00→21:22)
[2021-07-15] MEDS: levETIRAcetam 250 MG TABLET PO SCH ×2 (10:00→21:21)
[2021-07-15] MEDS: METHOCARBAMOL 500 MG TABLET PO PRN ×2 (10:01→21:21)
[2021-07-15] MEDS: NICOTINE 10 MG CARTRIDGE (INHALER) IH PRN (21:20)
[2021-07-15] MEDS: hydrOXYzine PAMOATE 25 MG CAPSULE (FP) PO PRN (21:21)
[2021-07-15] MEDS: ATORVASTATIN CA 40 MG TABLET (FP) PO SCH (21:21)
[2021-07-15] MEDS: THIAMINE HCL 100 MG TABLET (FP) PO SCH (21:22)
[2021-07-15] MEDS: MELATONIN 5 MG TABLETS PO SCH (21:22)
[2021-07-16] MEDS: IBUPROFEN 400 MG TABLET (FP) PO PRN ×2 (06:23→15:49)
[2021-07-16] MEDS: PANTOPRAZOLE 40 MG TABLET PO SCH (06:23)
[2021-07-16 10:07] LABS: SARS-CoV-2 NAA Not Detected (Not Detected)
[2021-07-16] MEDS: PRENATAL VITAMINS W/ FOLIC ACID TABLET (FP) PO SCH (10:14)
[2021-07-16] MEDS: BUDESONIDE/FORMETEROL FUMARATE 160/4.5 mcg INHALER IH SCH ×2 (10:14→21:23)
[2021-07-16] MEDS: NICOTINE 7 MG/24 HOURS TOPICAL PATCH TD SCH (10:14)
[2021-07-16] MEDS: SILVER SULFADIAZINE 1% TOP CREAM 50 GM JAR TP SCH ×2 (10:15→21:25)
[2021-07-16] MEDS: ASPIRIN 81 MG CHEWABLE TABLETS PO SCH (10:15)
[2021-07-16] MEDS: levETIRAcetam 250 MG TABLET PO SCH ×2 (10:15→21:23)
[2021-07-16] MEDS: GABAPENTIN 100 MG CAPSULE PO SCH ×2 (10:15→21:23)
[2021-07-16] MEDS: amLODIPine BESYLATE 10 MG TABLET (FP) PO SCH (10:15)
[2021-07-16] MEDS: NICOTINE 10 MG CARTRIDGE (INHALER) IH PRN (10:16)
[2021-07-16] MEDS: ENALAPRIL MALEATE 10 MG TABLET PO SCH (10:16)
[2021-07-16] MEDS: METHOCARBAMOL 500 MG TABLET PO PRN (21:23)
[2021-07-16] MEDS: MELATONIN 5 MG TABLETS PO SCH (21:23)
[2021-07-16] MEDS: THIAMINE HCL 100 MG TABLET (FP) PO SCH (21:23)
[2021-07-16] MEDS: ATORVASTATIN CA 40 MG TABLET (FP) PO SCH (21:23)
[2021-07-17] MEDS: PANTOPRAZOLE 40 MG TABLET PO SCH (06:41)
[2021-07-17] MEDS: PRENATAL VITAMINS W/ FOLIC ACID TABLET (FP) PO SCH (09:49)
[2021-07-17] MEDS: GABAPENTIN 100 MG CAPSULE PO SCH ×2 (09:50→21:14)
[2021-07-17] MEDS: levETIRAcetam 250 MG TABLET PO SCH ×2 (09:50→21:13)
[2021-07-17] MEDS: ASPIRIN 81 MG CHEWABLE TABLETS PO SCH (09:50)
[2021-07-17] MEDS: amLODIPine BESYLATE 10 MG TABLET (FP) PO SCH (09:51)
[2021-07-17] MEDS: NICOTINE 10 MG CARTRIDGE (INHALER) IH PRN (09:51)
[2021-07-17] MEDS: ENALAPRIL MALEATE 10 MG TABLET PO SCH (09:51)
[2021-07-17] MEDS: BUDESONIDE/FORMETEROL FUMARATE 160/4.5 mcg INHALER IH SCH ×2 (09:52→22:53)
[2021-07-17] MEDS: METHOCARBAMOL 500 MG TABLET PO PRN ×2 (09:52→21:15)
[2021-07-17] MEDS: SILVER SULFADIAZINE 1% TOP CREAM 50 GM JAR TP SCH ×2 (09:53→21:14)
[2021-07-17] MEDS: NICOTINE 7 MG/24 HOURS TOPICAL PATCH TD SCH (10:10)
[2021-07-17] MEDS: IBUPROFEN 400 MG TABLET (FP) PO PRN (15:49)
[2021-07-17] MEDS: ATORVASTATIN CA 40 MG TABLET (FP) PO SCH (21:13)
[2021-07-17] MEDS: MELATONIN 5 MG TABLETS PO SCH (21:14)
[2021-07-17] MEDS: THIAMINE HCL 100 MG TABLET (FP) PO SCH (21:14)
[2021-07-18] MEDS: PANTOPRAZOLE 40 MG TABLET PO SCH (06:48)
[2021-07-18] MEDS: IBUPROFEN 400 MG TABLET (FP) PO PRN ×2 (06:48→16:38)
[2021-07-18] MEDS: BUDESONIDE/FORMETEROL FUMARATE 160/4.5 mcg INHALER IH SCH ×2 (10:05→21:52)
[2021-07-18] MEDS: SILVER SULFADIAZINE 1% TOP CREAM 50 GM JAR TP SCH ×2 (10:06→21:50)
[2021-07-18] MEDS: NICOTINE 7 MG/24 HOURS TOPICAL PATCH TD SCH (10:06)
[2021-07-18] MEDS: GABAPENTIN 100 MG CAPSULE PO SCH ×2 (10:06→21:52)
[2021-07-18] MEDS: ENALAPRIL MALEATE 10 MG TABLET PO SCH (10:06)
[2021-07-18] MEDS: amLODIPine BESYLATE 10 MG TABLET (FP) PO SCH (10:06)
[2021-07-18] MEDS: levETIRAcetam 250 MG TABLET PO SCH ×2 (10:07→21:54)
[2021-07-18] MEDS: ASPIRIN 81 MG CHEWABLE TABLETS PO SCH (10:08)
[2021-07-18] MEDS: PRENATAL VITAMINS W/ FOLIC ACID TABLET (FP) PO SCH (10:08)
[2021-07-18] MEDS: NICOTINE 10 MG CARTRIDGE (INHALER) IH PRN (10:09)
[2021-07-18] MEDS: METHOCARBAMOL 500 MG TABLET PO PRN (16:38)
[2021-07-18] MEDS: MELATONIN 5 MG TABLETS PO SCH (21:52)
[2021-07-18] MEDS: ATORVASTATIN CA 40 MG TABLET (FP) PO SCH (21:52)
[2021-07-18] MEDS: THIAMINE HCL 100 MG TABLET (FP) PO SCH (23:43)
[2021-07-19] MEDS: PANTOPRAZOLE 40 MG TABLET PO SCH (06:48)
[2021-07-19] MEDS: IBUPROFEN 400 MG TABLET (FP) PO PRN ×3 (06:48→21:44)
[2021-07-19] MEDS: PRENATAL VITAMINS W/ FOLIC ACID TABLET (FP) PO SCH (10:04)
[2021-07-19] MEDS: NICOTINE 7 MG/24 HOURS TOPICAL PATCH TD SCH (10:04)
[2021-07-19] MEDS: BUDESONIDE/FORMETEROL FUMARATE 160/4.5 mcg INHALER IH SCH ×2 (10:05→21:43)
[2021-07-19] MEDS: SILVER SULFADIAZINE 1% TOP CREAM 50 GM JAR TP SCH ×2 (10:05→21:43)
[2021-07-19] MEDS: ASPIRIN 81 MG CHEWABLE TABLETS PO SCH (10:06)
[2021-07-19] MEDS: amLODIPine BESYLATE 10 MG TABLET (FP) PO SCH (10:06)
[2021-07-19] MEDS: GABAPENTIN 100 MG CAPSULE PO SCH ×2 (10:06→21:42)
[2021-07-19] MEDS: levETIRAcetam 250 MG TABLET PO SCH ×2 (10:07→21:40)
[2021-07-19] MEDS: METHOCARBAMOL 500 MG TABLET PO PRN ×2 (10:07→17:21)
[2021-07-19] MEDS: ENALAPRIL MALEATE 10 MG TABLET PO SCH (10:08)
[2021-07-19] MEDS: MELATONIN 5 MG TABLETS PO SCH (21:40)
[2021-07-19] MEDS: ATORVASTATIN CA 40 MG TABLET (FP) PO SCH (21:41)
[2021-07-19] MEDS: THIAMINE HCL 100 MG TABLET (FP) PO SCH (21:43)
[2021-07-20] MEDS: PANTOPRAZOLE 40 MG TABLET PO SCH (06:54)
[2021-07-20] MEDS: IBUPROFEN 400 MG TABLET (FP) PO PRN ×2 (06:58→17:59)
[2021-07-20] MEDS: PRENATAL VITAMINS W/ FOLIC ACID TABLET (FP) PO SCH (10:11)
[2021-07-20] MEDS: ENALAPRIL MALEATE 10 MG TABLET PO SCH (10:11)
[2021-07-20] MEDS: BUDESONIDE/FORMETEROL FUMARATE 160/4.5 mcg INHALER IH SCH ×2 (10:11→21:30)
[2021-07-20] MEDS: NICOTINE 7 MG/24 HOURS TOPICAL PATCH TD SCH (10:11)
[2021-07-20] MEDS: GABAPENTIN 100 MG CAPSULE PO SCH ×2 (10:12→21:29)
[2021-07-20] MEDS: SILVER SULFADIAZINE 1% TOP CREAM 50 GM JAR TP SCH ×2 (10:12→21:30)
[2021-07-20] MEDS: ASPIRIN 81 MG CHEWABLE TABLETS PO SCH (10:12)
[2021-07-20] MEDS: amLODIPine BESYLATE 10 MG TABLET (FP) PO SCH (10:12)
[2021-07-20] MEDS: levETIRAcetam 250 MG TABLET PO SCH ×2 (10:12→21:29)
[2021-07-20] MEDS: NICOTINE 10 MG CARTRIDGE (INHALER) IH PRN (10:13)
[2021-07-20] MEDS: METHOCARBAMOL 500 MG TABLET PO PRN ×2 (14:33→21:31)
[2021-07-20] MEDS: ATORVASTATIN CA 40 MG TABLET (FP) PO SCH (21:29)
[2021-07-20] MEDS: MELATONIN 5 MG TABLETS PO SCH (21:29)
[2021-07-20] MEDS: THIAMINE HCL 100 MG TABLET (FP) PO SCH (21:30)
[2021-07-21] MEDS: PANTOPRAZOLE 40 MG TABLET PO SCH (07:08)
[2021-07-21] MEDS: ASPIRIN 81 MG CHEWABLE TABLETS PO SCH (10:05)
[2021-07-21] MEDS: NICOTINE 7 MG/24 HOURS TOPICAL PATCH TD SCH (10:06)
[2021-07-21] MEDS: amLODIPine BESYLATE 10 MG TABLET (FP) PO SCH (10:06)
[2021-07-21] MEDS: PRENATAL VITAMINS W/ FOLIC ACID TABLET (FP) PO SCH (10:06)
[2021-07-21] MEDS: BUDESONIDE/FORMETEROL FUMARATE 160/4.5 mcg INHALER IH SCH ×2 (10:06→21:38)
[2021-07-21] MEDS: GABAPENTIN 100 MG CAPSULE PO SCH ×2 (10:06→21:38)
[2021-07-21] MEDS: SILVER SULFADIAZINE 1% TOP CREAM 50 GM JAR TP SCH ×2 (10:07→21:38)
[2021-07-21] MEDS: levETIRAcetam 250 MG TABLET PO SCH ×2 (10:07→21:37)
[2021-07-21] MEDS: IBUPROFEN 400 MG TABLET (FP) PO PRN ×2 (10:08→17:04)
[2021-07-21] MEDS: ENALAPRIL MALEATE 10 MG TABLET PO SCH (10:09)
[2021-07-21] MEDS: METHOCARBAMOL 500 MG TABLET PO PRN ×2 (17:04→21:38)
[2021-07-21] MEDS: hydrOXYzine PAMOATE 25 MG CAPSULE (FP) PO PRN (21:38)
[2021-07-21] MEDS: ATORVASTATIN CA 40 MG TABLET (FP) PO SCH (21:38)
[2021-07-21] MEDS: THIAMINE HCL 100 MG TABLET (FP) PO SCH (21:38)
[2021-07-21] MEDS: MELATONIN 5 MG TABLETS PO SCH (21:39)
[2021-07-22] MEDS: PANTOPRAZOLE 40 MG TABLET PO SCH (06:34)
[2021-07-22] MEDS: PRENATAL VITAMINS W/ FOLIC ACID TABLET (FP) PO SCH (10:22)
[2021-07-22] MEDS: NICOTINE 10 MG CARTRIDGE (INHALER) IH PRN (10:22)
[2021-07-22] MEDS: amLODIPine BESYLATE 10 MG TABLET (FP) PO SCH (10:23)
[2021-07-22] MEDS: levETIRAcetam 250 MG TABLET PO SCH ×2 (10:23→21:38)
[2021-07-22] MEDS: ASPIRIN 81 MG CHEWABLE TABLETS PO SCH (10:23)
[2021-07-22] MEDS: GABAPENTIN 100 MG CAPSULE PO SCH ×2 (10:23→21:37)
[2021-07-22] MEDS: ENALAPRIL MALEATE 10 MG TABLET PO SCH (10:23)
[2021-07-22] MEDS: NICOTINE 7 MG/24 HOURS TOPICAL PATCH TD SCH (10:24)
[2021-07-22] MEDS: BUDESONIDE/FORMETEROL FUMARATE 160/4.5 mcg INHALER IH SCH ×2 (10:25→21:38)
[2021-07-22] MEDS: SILVER SULFADIAZINE 1% TOP CREAM 50 GM JAR TP SCH ×2 (10:25→21:38)
[2021-07-22] MEDS: IBUPROFEN 400 MG TABLET (FP) PO PRN ×3 (10:27→23:52)
[2021-07-22] MEDS: METHOCARBAMOL 500 MG TABLET PO PRN ×3 (10:28→23:53)
[2021-07-22] MEDS: THIAMINE HCL 100 MG TABLET (FP) PO SCH (21:37)
[2021-07-22] MEDS: MELATONIN 5 MG TABLETS PO SCH (21:38)
[2021-07-22] MEDS: ATORVASTATIN CA 40 MG TABLET (FP) PO SCH (21:38)
[2021-07-23] MEDS: PANTOPRAZOLE 40 MG TABLET PO SCH (06:36)
[2021-07-23] MEDS: GABAPENTIN 100 MG CAPSULE PO SCH ×2 (09:57→21:22)
[2021-07-23] MEDS: PRENATAL VITAMINS W/ FOLIC ACID TABLET (FP) PO SCH (09:57)
[2021-07-23] MEDS: NICOTINE 7 MG/24 HOURS TOPICAL PATCH TD SCH (09:57)
[2021-07-23] MEDS: ASPIRIN 81 MG CHEWABLE TABLETS PO SCH (09:57)
[2021-07-23] MEDS: amLODIPine BESYLATE 10 MG TABLET (FP) PO SCH (09:57)
[2021-07-23] MEDS: ENALAPRIL MALEATE 10 MG TABLET PO SCH (09:57)
[2021-07-23] MEDS: levETIRAcetam 250 MG TABLET PO SCH ×2 (09:58→21:23)
[2021-07-23] MEDS: SILVER SULFADIAZINE 1% TOP CREAM 50 GM JAR TP SCH ×2 (09:59→21:24)
[2021-07-23] MEDS: BUDESONIDE/FORMETEROL FUMARATE 160/4.5 mcg INHALER IH SCH ×2 (10:00→21:24)
[2021-07-23] MEDS: METHOCARBAMOL 500 MG TABLET PO PRN ×3 (10:01→22:40)
[2021-07-23] MEDS: IBUPROFEN 400 MG TABLET (FP) PO PRN ×3 (10:01→22:40)
[2021-07-23] MEDS: NICOTINE 10 MG CARTRIDGE (INHALER) IH PRN (10:02)
[2021-07-23] MEDS: ATORVASTATIN CA 40 MG TABLET (FP) PO SCH (21:23)
[2021-07-23] MEDS: MELATONIN 5 MG TABLETS PO SCH (21:24)
[2021-07-23] MEDS: THIAMINE HCL 100 MG TABLET (FP) PO SCH (21:24)
[2021-07-24] MEDS: PANTOPRAZOLE 40 MG TABLET PO SCH (06:19)
[2021-07-24] MEDS: PRENATAL VITAMINS W/ FOLIC ACID TABLET (FP) PO SCH (10:18)
[2021-07-24] MEDS: ENALAPRIL MALEATE 10 MG TABLET PO SCH (10:18)
[2021-07-24] MEDS: NICOTINE 7 MG/24 HOURS TOPICAL PATCH TD SCH (10:18)
[2021-07-24] MEDS: NICOTINE 10 MG CARTRIDGE (INHALER) IH PRN (10:19)
[2021-07-24] MEDS: METHOCARBAMOL 500 MG TABLET PO PRN ×2 (10:20→17:18)
[2021-07-24] MEDS: IBUPROFEN 400 MG TABLET (FP) PO PRN ×2 (10:20→17:18)
[2021-07-24] MEDS: amLODIPine BESYLATE 10 MG TABLET (FP) PO SCH (10:20)
[2021-07-24] MEDS: GABAPENTIN 100 MG CAPSULE PO SCH ×2 (10:20→21:14)
[2021-07-24] MEDS: ASPIRIN 81 MG CHEWABLE TABLETS PO SCH (10:20)
[2021-07-24] MEDS: levETIRAcetam 250 MG TABLET PO SCH ×2 (10:22→21:14)
[2021-07-24] MEDS: BUDESONIDE/FORMETEROL FUMARATE 160/4.5 mcg INHALER IH SCH ×2 (10:23→21:14)
[2021-07-24] MEDS: SILVER SULFADIAZINE 1% TOP CREAM 50 GM JAR TP SCH ×2 (10:23→21:14)
[2021-07-24] MEDS: MELATONIN 5 MG TABLETS PO SCH (21:14)
[2021-07-24] MEDS: ATORVASTATIN CA 40 MG TABLET (FP) PO SCH (21:14)
[2021-07-24] MEDS: THIAMINE HCL 100 MG TABLET (FP) PO SCH (21:14)
[2021-07-25] MEDS: PANTOPRAZOLE 40 MG TABLET PO SCH (06:39)
[2021-07-25] MEDS: IBUPROFEN 400 MG TABLET (FP) PO PRN ×2 (06:39→16:10)
[2021-07-25] MEDS: levETIRAcetam 250 MG TABLET PO SCH ×2 (09:57→21:16)
[2021-07-25] MEDS: PRENATAL VITAMINS W/ FOLIC ACID TABLET (FP) PO SCH (09:57)
[2021-07-25] MEDS: amLODIPine BESYLATE 10 MG TABLET (FP) PO SCH (09:58)
[2021-07-25] MEDS: NICOTINE 7 MG/24 HOURS TOPICAL PATCH TD SCH (09:58)
[2021-07-25] MEDS: GABAPENTIN 100 MG CAPSULE PO SCH ×2 (09:58→21:16)
[2021-07-25] MEDS: METHOCARBAMOL 500 MG TABLET PO PRN ×2 (09:58→16:10)
[2021-07-25] MEDS: ASPIRIN 81 MG CHEWABLE TABLETS PO SCH (09:58)
[2021-07-25] MEDS: BUDESONIDE/FORMETEROL FUMARATE 160/4.5 mcg INHALER IH SCH ×2 (09:58→21:17)
[2021-07-25] MEDS: ENALAPRIL MALEATE 10 MG TABLET PO SCH (09:59)
[2021-07-25] MEDS: NICOTINE 10 MG CARTRIDGE (INHALER) IH PRN (10:00)
[2021-07-25] MEDS: SILVER SULFADIAZINE 1% TOP CREAM 50 GM JAR TP SCH ×2 (10:00→21:17)
[2021-07-25] MEDS: ATORVASTATIN CA 40 MG TABLET (FP) PO SCH (21:17)
[2021-07-25] MEDS: THIAMINE HCL 100 MG TABLET (FP) PO SCH (21:17)
[2021-07-25] MEDS: MELATONIN 5 MG TABLETS PO SCH (21:17)
[2021-07-26 06:32] VITALS: BP 146/86; PULSE 78; TEMP 98
[2021-07-26] MEDS: PANTOPRAZOLE 40 MG TABLET PO SCH (06:43)
[2021-07-26] MEDS: NICOTINE 10 MG CARTRIDGE (INHALER) IH PRN (06:44)
[2021-07-26] MEDS: ENALAPRIL MALEATE 10 MG TABLET PO SCH (09:14)
[2021-07-26] MEDS: ASPIRIN 81 MG CHEWABLE TABLETS PO SCH (09:14)
[2021-07-26] MEDS: amLODIPine BESYLATE 10 MG TABLET (FP) PO SCH (09:14)
[2021-07-26] MEDS: GABAPENTIN 100 MG CAPSULE PO SCH (09:15)
[2021-07-26] MEDS: levETIRAcetam 250 MG TABLET PO SCH (09:15)
[2021-07-26] MEDS: BUDESONIDE/FORMETEROL FUMARATE 160/4.5 mcg INHALER IH SCH (09:16)
[2021-07-26] MEDS: PRENATAL VITAMINS W/ FOLIC ACID TABLET (FP) PO SCH (09:16)
[2021-07-26] MEDS: NICOTINE 7 MG/24 HOURS TOPICAL PATCH TD SCH (09:16)
[2021-07-26] MEDS: IBUPROFEN 400 MG TABLET (FP) PO PRN (09:18)
[2021-07-26] MEDS: METHOCARBAMOL 500 MG TABLET PO PRN (09:18)
[2021-07-26] MEDS: SILVER SULFADIAZINE 1% TOP CREAM 50 GM JAR TP SCH (09:19)
== END 2021-07-26 09:40 | disposition home or self-care (01) | DRG 772 ==
LOC: YASAS 14:19 → Y5N 14:21
PROVIDERS: ADMIT Allergy & Immunology; ATTEND Allergy & Immunology
PROC: HZ42ZZZ Group Counseling for Substance Abuse Treatment, Cognitive-Behavioral (ICD-10-PCS; principal; 2021-07-12)
DX: F10.20 Alcohol dependence, uncomplicated (principal); F13.20 Sedative, hypnotic or anxiolytic dependence, uncomplicated; F12.20 Cannabis dependence, uncomplicated; F17.210 Nicotine dependence, cigarettes, uncomplicated; G62.9 Polyneuropathy, unspecified; I10 Essential (primary) hypertension; J45.909 Unspecified asthma, uncomplicated; K21.9 Gastro-esophageal reflux disease without esophagitis; M17.0 Bilateral primary osteoarthritis of knee; T22.021A Burn of unspecified degree of right elbow, initial encounter; T23.072A Burn of unspecified degree of left wrist, initial encounter; X10.2XXA Contact with fats and cooking oils, initial encounter; Y92.9 Unspecified place or not applicable; Z86.73 Personal history of transient ischemic attack (TIA), and cerebral infarction without residual deficits; Z88.8 Allergy status to other drugs, medicaments and biological substances; Z91.010 Allergy to peanuts; Z91.018 Allergy to other foods
CPT/HCPCS: 36415; 87389; C9803-CS; U0003; U0005

== ENCOUNTER 2021-09-23 20:24 | Inpatient (IN) | payer OTHER ==
[2021-09-23 21:05] VITALS: BMI 38.7
[2021-09-23] MEDS ORDERED: IBUPROFEN 400 MG TABLET (FP) PO PRN (21:51)
[2021-09-23] MEDS ORDERED: LOPERAMIDE HCL 2 MG CAPSULE PO PRN (21:51)
[2021-09-23] MEDS ORDERED: DICYCLOMINE HCL 10 MG CAPSULE PO PRN (21:51)
[2021-09-23] MEDS ORDERED: NICOTINE POLACRILEX 4 MG GUM BUC PRN (21:51)
[2021-09-23] MEDS ORDERED: ACETAMINOPHEN 325 MG TABLET (FP) PO PRN (21:51)
[2021-09-23] MEDS ORDERED: LORazepam 1 MG TABLET PO PRN (21:51)
[2021-09-23] MEDS ORDERED: BISMUTH SUBSALICYLATE 524 MG/30 ML PO PRN (21:51)
[2021-09-23] MEDS ORDERED: MAG HYDROX/AL HYDROX/SIMETH 30 ML UNIT-DOSE CUP PO PRN (21:51)
[2021-09-23] MEDS ORDERED: ONDANSETRON *ODT* 4 MG TABLET SL PRN (21:51)
[2021-09-23] MEDS ORDERED: P-EPHED 60MG/TRIPROLIDI 2.5MG TABLET PO PRN (21:51)
[2021-09-23] MEDS ORDERED: BENZOCAINE/MENTHOL (CHLORASEPTIC ) LOZENGE MM PRN (21:51)
[2021-09-23] MEDS ORDERED: MAGNESIUM CITRATE 300 ML BOTTLE PO PRN (21:51)
[2021-09-23] MEDS ORDERED: MAGNESIUM HYDROX 2400MG/30ML ORAL SUSPENSION 30 ML CUP PO PRN (21:51)
[2021-09-24] MEDS ORDERED: LORazepam 2 MG TABLET ONE (01:45)
[2021-09-24] MEDS: LORazepam 2 MG TABLET PO SCH ×5 (01:46→22:04)
[2021-09-24] MEDS: THIAMINE HCL 100 MG TABLET (FP) PO SCH ×2 (03:42→22:05)
[2021-09-24] MEDS: ACETAMINOPHEN 325 MG TABLET (FP) PO PRN ×2 (06:33→20:33)
[2021-09-24] MEDS ORDERED: NICOTINE 21 MG/24 HOURS TOPICAL PATCH TD SCH (10:00)
[2021-09-24] MEDS: PRENATAL VITAMINS W/ FOLIC ACID TABLET (FP) PO SCH (11:20)
[2021-09-24] MEDS: METHOCARBAMOL 500 MG TABLET PO PRN (18:33)
[2021-09-24] MEDS: MELATONIN 5 MG TABLETS PO SCH ×2 (22:05)
[2021-09-24] MEDS: IBUPROFEN 600 MG TABLET (FP) PO PRN (22:07)
[2021-09-25] MEDS: LORazepam 1 MG TABLET PO SCH ×4 (06:26→22:07)
[2021-09-25] MEDS ORDERED: ALBUTEROL SO4 HFA INHALER IH PRN (09:58)
[2021-09-25] MEDS: ENALAPRIL MALEATE 10 MG TABLET PO SCH (10:33)
[2021-09-25] MEDS: PRENATAL VITAMINS W/ FOLIC ACID TABLET (FP) PO SCH (10:33)
[2021-09-25] MEDS: NICOTINE 10 MG CARTRIDGE (INHALER) IH PRN (10:35)
[2021-09-25 10:38] LABS: HEMATOCRIT 33.1 % (35.4-49); HEMOGLOBIN 10.3 GM/dL (11.7-16.9); MCH 24.4 pg (25.7-33.7); MCHC 31.1 g/dl (32.0-35.9); MEAN CELL VOLUME 78.5 fl (80-96); MEAN PLT VOLUME 8.6 fl (7.5-11.1); PLATELET COUNT 278 10^3/uL (134-434); RBC 4.22 M/mm3 (4.00-5.60); RDW 20.9 % (11.9-15.9); WHITE BLOOD COUNT 5.6 K/mm3 (4.0-10.0)
[2021-09-25 11:02] LABS: ALBUMIN 3.6 g/dl (3.4-5.0); BLOOD UREA NITROGEN 12.1 mg/dL (7-18); CREATININE 0.7 mg/dL (0.55-1.3)
[2021-09-25 11:04] LABS: BILIRUBIN,TOTAL 0.3 mg/dL (0.2-1); CALCIUM 8.6 mg/dL (8.5-10.1); TOT PROT 6.9 g/dl (6.4-8.2)
[2021-09-25] MEDS ORDERED: PATIENT'S OWN MEDICATION (NON-FORMULARY) (Omeprazole 20 MG Capsule.Dr) PO SCH (12:30)
[2021-09-25] MEDS: GABAPENTIN 300 MG CAPSULE PO SCH ×2 (14:44→22:07)
[2021-09-25] MEDS: PANTOPRAZOLE 40 MG TABLET PO SCH (14:58)
[2021-09-25] MEDS: IBUPROFEN 600 MG TABLET (FP) PO PRN (17:45)
[2021-09-25] MEDS: MELATONIN 5 MG TABLETS PO SCH (22:08)
[2021-09-25] MEDS: THIAMINE HCL 100 MG TABLET (FP) PO SCH (22:08)
[2021-09-25] MEDS: METHOCARBAMOL 500 MG TABLET PO PRN (22:11)
[2021-09-26] MEDS ORDERED: LORazepam 0.5 MG TABLET PO PRN
[2021-09-26] MEDS: GABAPENTIN 300 MG CAPSULE PO SCH ×3 (05:23→22:47)
[2021-09-26] MEDS: LORazepam 0.5 MG TABLET PO SCH ×4 (05:23→22:48)
[2021-09-26] MEDS: PANTOPRAZOLE 40 MG TABLET PO SCH (09:00)
[2021-09-26] MEDS: ENALAPRIL MALEATE 10 MG TABLET PO SCH ×2 (10:19→22:47)
[2021-09-26] MEDS: METHOCARBAMOL 500 MG TABLET PO PRN (10:19)
[2021-09-26] MEDS: PRENATAL VITAMINS W/ FOLIC ACID TABLET (FP) PO SCH (10:19)
[2021-09-26] MEDS: IBUPROFEN 600 MG TABLET (FP) PO PRN ×2 (10:20→17:48)
[2021-09-26] MEDS: NICOTINE 10 MG CARTRIDGE (INHALER) IH PRN (10:22)
[2021-09-26] MEDS: ACETAMINOPHEN 325 MG TABLET (FP) PO PRN (14:09)
[2021-09-26] MEDS ORDERED: BISMUTH SUBSALICYLATE 262 MG/15 ML BTL PO ONE (14:49)
[2021-09-26] MEDS ORDERED: LOPERAMIDE HCL 2 MG CAPSULE PO ONE (19:00)
[2021-09-26] MEDS: THIAMINE HCL 100 MG TABLET (FP) PO SCH (22:47)
[2021-09-26] MEDS: levETIRAcetam 250 MG TABLET PO SCH (22:47)
[2021-09-26] MEDS: MELATONIN 5 MG TABLETS PO SCH (22:48)
[2021-09-27] MEDS ORDERED: LORazepam 0.5 MG TABLET PO ONE (05:00)
[2021-09-27] MEDS ORDERED: PANTOPRAZOLE 40 MG TABLET PO SCH (06:00)
[2021-09-27] MEDS: GABAPENTIN 300 MG CAPSULE PO SCH (06:29)
[2021-09-27 09:43] VITALS: BP 121/85; PULSE 91; TEMP 96.9
[2021-09-27] MEDS: levETIRAcetam 250 MG TABLET PO SCH (10:15)
[2021-09-27] MEDS: ENALAPRIL MALEATE 10 MG TABLET PO SCH (10:15)
[2021-09-27] MEDS: PRENATAL VITAMINS W/ FOLIC ACID TABLET (FP) PO SCH (10:15)
== END 2021-09-27 11:07 | disposition home or self-care (01) | DRG 775 ==
LOC: YASAS 20:24 → Y6N 09-24 02:52
PROVIDERS: ADMIT Allergy & Immunology; ATTEND Surgery
PROC: HZ2ZZZZ Detoxification Services for Substance Abuse Treatment (ICD-10-PCS; principal; 2021-09-24)
DX: F10.230 Alcohol dependence with withdrawal, uncomplicated (principal); F12.20 Cannabis dependence, uncomplicated; F17.210 Nicotine dependence, cigarettes, uncomplicated; U07.1 COVID-19; G62.9 Polyneuropathy, unspecified; G40.909 Epilepsy, unspecified, not intractable, without status epilepticus; I10 Essential (primary) hypertension; J45.20 Mild intermittent asthma, uncomplicated; K21.9 Gastro-esophageal reflux disease without esophagitis; M17.0 Bilateral primary osteoarthritis of knee; M19.071 Primary osteoarthritis, right ankle and foot; M19.072 Primary osteoarthritis, left ankle and foot; Z86.73 Personal history of transient ischemic attack (TIA), and cerebral infarction without residual deficits; Z59.01 Sheltered homelessness; Z88.8 Allergy status to other drugs, medicaments and biological substances; Z91.018 Allergy to other foods
CPT/HCPCS: 36415; 80053; 82962; 85027; 86780; C9803-CS; U0003; U0005

== ENCOUNTER 2021-10-18 17:33 | Inpatient (IN) | payer OTHER ==
[2021-10-18 18:28] VITALS: BMI 38.6
[2021-10-18] MEDS ORDERED: MAGNESIUM HYDROX 2400MG/30ML ORAL SUSPENSION 30 ML CUP PO PRN (20:07)
[2021-10-18] MEDS ORDERED: ACETAMINOPHEN 325 MG TABLET (FP) PO PRN ×2 (20:07)
[2021-10-18] MEDS ORDERED: ONDANSETRON *ODT* 4 MG TABLET SL PRN (20:07)
[2021-10-18] MEDS ORDERED: diazePAM 5 MG TABLET PO PRN (20:07)
[2021-10-18] MEDS ORDERED: BISMUTH SUBSALICYLATE 524 MG/30 ML PO PRN (20:07)
[2021-10-18] MEDS ORDERED: DICYCLOMINE HCL 10 MG CAPSULE PO PRN (20:07)
[2021-10-18] MEDS ORDERED: BENZOCAINE/MENTHOL (CHLORASEPTIC ) LOZENGE MM PRN (20:07)
[2021-10-18] MEDS ORDERED: LOPERAMIDE HCL 2 MG CAPSULE PO PRN (20:07)
[2021-10-18] MEDS ORDERED: MAGNESIUM CITRATE 300 ML BOTTLE PO PRN (20:07)
[2021-10-18] MEDS: diazePAM 5 MG TABLET PO SCH (22:04)
[2021-10-18] MEDS: THIAMINE HCL 100 MG TABLET (FP) PO SCH (22:05)
[2021-10-18] MEDS: MELATONIN 5 MG TABLETS PO SCH (22:05)
[2021-10-19] MEDS: diazePAM 5 MG TABLET PO SCH ×4 (05:41→22:22)
[2021-10-19] MEDS: METHOCARBAMOL 500 MG TABLET PO PRN ×3 (05:41→17:29)
[2021-10-19] MEDS: PRENATAL VITAMINS W/ FOLIC ACID TABLET (FP) PO SCH (10:30)
[2021-10-19] MEDS: NICOTINE 21 MG/24 HOURS TOPICAL PATCH TD SCH (10:32)
[2021-10-19 10:52] LABS: HEMATOCRIT 34.3 % (35.4-49); HEMOGLOBIN 10.9 GM/dL (11.7-16.9); MCH 24.5 pg (25.7-33.7); MCHC 31.6 g/dl (32.0-35.9); MEAN CELL VOLUME 77.7 fl (80-96); MEAN PLT VOLUME 8.4 fl (7.5-11.1); PLATELET COUNT 218 10^3/uL (134-434); RBC 4.42 M/mm3 (4.00-5.60); RDW 21.9 % (11.9-15.9); WHITE BLOOD COUNT 4.8 K/mm3 (4.0-10.0)
[2021-10-19 11:03] LABS: CALCIUM 8.4 mg/dL (8.5-10.1)
[2021-10-19 11:04] LABS: ALBUMIN 3.7 g/dl (3.4-5.0); BLOOD UREA NITROGEN 9.1 mg/dL (7-18)
[2021-10-19 11:07] LABS: CREATININE 0.8 mg/dL (0.55-1.3)
[2021-10-19 11:09] LABS: BILIRUBIN,TOTAL 0.5 mg/dL (0.2-1)
[2021-10-19] MEDS: IBUPROFEN 600 MG TABLET (FP) PO PRN (17:28)
[2021-10-19] MEDS: NICOTINE 10 MG CARTRIDGE (INHALER) IH PRN (19:33)
[2021-10-19] MEDS ORDERED: ALBUTEROL SO4 HFA INHALER IH PRN (19:59)
[2021-10-19] MEDS: GABAPENTIN 300 MG CAPSULE PO SCH (22:20)
[2021-10-19] MEDS: MELATONIN 5 MG TABLETS PO SCH (22:20)
[2021-10-19] MEDS: ENALAPRIL MALEATE 10 MG TABLET PO SCH (22:20)
[2021-10-19] MEDS: levETIRAcetam 250 MG TABLET PO SCH (22:21)
[2021-10-19] MEDS: THIAMINE HCL 100 MG TABLET (FP) PO SCH (22:23)
[2021-10-20] MEDS: GABAPENTIN 300 MG CAPSULE PO SCH ×3 (05:21→22:19)
[2021-10-20] MEDS: diazePAM 5 MG TABLET PO SCH ×3 (05:21→22:18)
[2021-10-20] MEDS: IBUPROFEN 600 MG TABLET (FP) PO PRN ×2 (05:22→17:59)
[2021-10-20] MEDS: METHOCARBAMOL 500 MG TABLET PO PRN ×3 (05:23→17:58)
[2021-10-20] MEDS: ENALAPRIL MALEATE 10 MG TABLET PO SCH ×2 (10:29→22:20)
[2021-10-20] MEDS: PRENATAL VITAMINS W/ FOLIC ACID TABLET (FP) PO SCH (10:29)
[2021-10-20] MEDS: levETIRAcetam 250 MG TABLET PO SCH ×2 (10:29→22:20)
[2021-10-20] MEDS: NICOTINE 21 MG/24 HOURS TOPICAL PATCH TD SCH (10:29)
[2021-10-20] MEDS: NICOTINE 10 MG CARTRIDGE (INHALER) IH PRN (12:52)
[2021-10-20] MEDS: IBUPROFEN 400 MG TABLET (FP) PO PRN (12:52)
[2021-10-20] MEDS: MAG HYDROX/AL HYDROX/SIMETH 30 ML UNIT-DOSE CUP PO PRN (18:57)
[2021-10-20] MEDS: PANTOPRAZOLE 40 MG TABLET PO SCH (21:00)
[2021-10-20] MEDS: MELATONIN 5 MG TABLETS PO SCH (22:19)
[2021-10-20] MEDS: THIAMINE HCL 100 MG TABLET (FP) PO SCH (22:19)
[2021-10-21] MEDS: MAG HYDROX/AL HYDROX/SIMETH 30 ML UNIT-DOSE CUP PO PRN (04:07)
[2021-10-21] MEDS ORDERED: diazePAM 5 MG TABLET PO SCH (06:00)
[2021-10-21] MEDS: GABAPENTIN 300 MG CAPSULE PO SCH ×3 (06:43→22:06)
[2021-10-21] MEDS: PANTOPRAZOLE 40 MG TABLET PO SCH (06:43)
[2021-10-21] MEDS: METHOCARBAMOL 500 MG TABLET PO PRN (06:45)
[2021-10-21] MEDS: IBUPROFEN 400 MG TABLET (FP) PO PRN (06:45)
[2021-10-21] MEDS ORDERED: chlordiazePOXIDE HCL 25 MG CAPSULE PO PRN (09:27)
[2021-10-21] MEDS: ENALAPRIL MALEATE 10 MG TABLET PO SCH ×2 (10:23→22:06)
[2021-10-21] MEDS: PRENATAL VITAMINS W/ FOLIC ACID TABLET (FP) PO SCH (10:23)
[2021-10-21] MEDS: NICOTINE 21 MG/24 HOURS TOPICAL PATCH TD SCH (10:23)
[2021-10-21] MEDS: levETIRAcetam 250 MG TABLET PO SCH ×2 (10:23→22:06)
[2021-10-21] MEDS: NICOTINE 10 MG CARTRIDGE (INHALER) IH PRN (10:24)
[2021-10-21] MEDS: chlordiazePOXIDE HCL 25 MG CAPSULE PO SCH ×3 (10:27→22:05)
[2021-10-21] MEDS: IBUPROFEN 600 MG TABLET (FP) PO PRN (13:05)
[2021-10-21] MEDS: MELATONIN 5 MG TABLETS PO SCH (22:06)
[2021-10-21] MEDS: THIAMINE HCL 100 MG TABLET (FP) PO SCH (22:06)
[2021-10-22] MEDS: chlordiazePOXIDE HCL 25 MG CAPSULE PO SCH ×2 (05:55→10:38)
[2021-10-22] MEDS: GABAPENTIN 300 MG CAPSULE PO SCH ×2 (05:55→13:25)
[2021-10-22] MEDS: METHOCARBAMOL 500 MG TABLET PO PRN (05:58)
[2021-10-22] MEDS ORDERED: diazePAM 5 MG TABLET PO ONE (06:00)
[2021-10-22] MEDS: IBUPROFEN 600 MG TABLET (FP) PO PRN (06:57)
[2021-10-22] MEDS: PANTOPRAZOLE 40 MG TABLET PO SCH (06:57)
[2021-10-22] MEDS: ENALAPRIL MALEATE 10 MG TABLET PO SCH (10:37)
[2021-10-22] MEDS: PRENATAL VITAMINS W/ FOLIC ACID TABLET (FP) PO SCH (10:37)
[2021-10-22] MEDS: levETIRAcetam 250 MG TABLET PO SCH (10:37)
[2021-10-22] MEDS: NICOTINE 21 MG/24 HOURS TOPICAL PATCH TD SCH (10:38)
[2021-10-22] MEDS: IBUPROFEN 400 MG TABLET (FP) PO PRN (10:40)
[2021-10-22] MEDS: NICOTINE 10 MG CARTRIDGE (INHALER) IH PRN (11:31)
[2021-10-22 13:58] VITALS: BP 140/83; PULSE 86; TEMP 97.7
[2021-10-23] MEDS ORDERED: chlordiazePOXIDE HCL 25 MG CAPSULE PO SCH (05:00)
[2021-10-24] MEDS ORDERED: chlordiazePOXIDE HCL 10 MG CAPSULE PO PRN
[2021-10-24] MEDS ORDERED: chlordiazePOXIDE HCL 10 MG CAPSULE PO SCH (05:00)
[2021-10-25] MEDS ORDERED: chlordiazePOXIDE HCL 10 MG CAPSULE PO SCH (05:00)
[2021-10-26] MEDS ORDERED: chlordiazePOXIDE HCL 10 MG CAPSULE PO ONE (05:00)
== END 2021-10-22 14:54 | disposition left against medical advice (07) | DRG 770 ==
LOC: YASAS 17:33 → Y3N 20:57
PROVIDERS: ADMIT Allergy & Immunology; ATTEND Surgery
PROC: HZ2ZZZZ Detoxification Services for Substance Abuse Treatment (ICD-10-PCS; principal; 2021-10-18)
DX: F10.230 Alcohol dependence with withdrawal, uncomplicated (principal); F12.20 Cannabis dependence, uncomplicated; F17.210 Nicotine dependence, cigarettes, uncomplicated; I10 Essential (primary) hypertension; J45.20 Mild intermittent asthma, uncomplicated; K21.9 Gastro-esophageal reflux disease without esophagitis; E78.5 Hyperlipidemia, unspecified; G62.9 Polyneuropathy, unspecified; M17.0 Bilateral primary osteoarthritis of knee; Z91.010 Allergy to peanuts; Z88.8 Allergy status to other drugs, medicaments and biological substances; Z91.018 Allergy to other foods; Z86.73 Personal history of transient ischemic attack (TIA), and cerebral infarction without residual deficits; Z86.69 Personal history of other diseases of the nervous system and sense organs; Z20.822 Contact with and (suspected) exposure to COVID-19
CPT/HCPCS: 36415; 80053; 82962; 85027; 86780; C9803-CS; U0003; U0005

== ENCOUNTER 2022-04-06 14:16 | Inpatient (IN) | payer OTHER ==
[2022-04-06 16:09] VITALS: BMI 41.1
[2022-04-06] MEDS ORDERED: ONDANSETRON *ODT* 4 MG TABLET SL PRN (18:28)
[2022-04-06] MEDS ORDERED: BISMUTH SUBSALICYLATE 524 MG/30 ML PO PRN (18:28)
[2022-04-06] MEDS ORDERED: DICYCLOMINE HCL 10 MG CAPSULE PO PRN (18:28)
[2022-04-06] MEDS ORDERED: NALOXONE HCL (KLOXXADO) 8 MG SPRAY NS PRN (18:28)
[2022-04-06] MEDS ORDERED: ACETAMINOPHEN 325 MG TABLET (FP) PO PRN (18:28)
[2022-04-06] MEDS ORDERED: chlordiazePOXIDE HCL 25 MG CAPSULE PO PRN (18:28)
[2022-04-06] MEDS ORDERED: LOPERAMIDE HCL 2 MG CAPSULE PO PRN (18:28)
[2022-04-06] MEDS ORDERED: MAGNESIUM HYDROX 2400MG/30ML ORAL SUSPENSION 30 ML CUP PO PRN (18:28)
[2022-04-06] MEDS ORDERED: NICOTINE POLACRILEX 2 MG GUM BUC PRN (18:28)
[2022-04-06] MEDS ORDERED: POLYETHYLENE GLYCOL (HEALTHYLAX) 3350 17 GM PACKET PO PRN (18:28)
[2022-04-06] MEDS ORDERED: BENZOCAINE/MENTHOL (CHLORASEPTIC ) LOZENGE MM PRN (18:28)
[2022-04-06] MEDS: hydrOXYzine PAMOATE 25 MG CAPSULE (FP) PO PRN (20:55)
[2022-04-06] MEDS: ACETAMINOPHEN 325 MG TABLET (FP) PO PRN (20:59)
[2022-04-06] MEDS: levETIRAcetam 250 MG TABLET PO SCH (22:48)
[2022-04-06] MEDS: GABAPENTIN 300 MG CAPSULE PO SCH (22:48)
[2022-04-06] MEDS: ENALAPRIL MALEATE 10 MG TABLET PO SCH (22:49)
[2022-04-06] MEDS: MELATONIN 5 MG TABLETS PO SCH (22:49)
[2022-04-06] MEDS: THIAMINE HCL 100 MG TABLET (FP) PO SCH (22:49)
[2022-04-06] MEDS: chlordiazePOXIDE HCL 25 MG CAPSULE PO SCH (22:52)
[2022-04-07] MEDS: chlordiazePOXIDE HCL 25 MG CAPSULE PO SCH ×4 (05:27→22:29)
[2022-04-07] MEDS: GABAPENTIN 300 MG CAPSULE PO SCH ×3 (05:30→22:29)
[2022-04-07] MEDS: PANTOPRAZOLE 40 MG TABLET PO SCH (07:11)
[2022-04-07 10:21] LABS: HEMATOCRIT 36.5 % (35.4-49); HEMOGLOBIN 11.1 GM/dL (11.7-16.9); MCH 24.8 pg (25.7-33.7); MCHC 30.4 g/dl (32.0-35.9); MEAN CELL VOLUME 81.4 fl (80-96); MEAN PLT VOLUME 8.9 fl (7.5-11.1); PLATELET COUNT 243 10^3/uL (134-434); RBC 4.48 M/mm3 (4.00-5.60); RDW 22.6 % (11.9-15.9); WHITE BLOOD COUNT 5.4 K/mm3 (4.0-10.0)
[2022-04-07 10:35] LABS: CALCIUM 8.3 mg/dL (8.5-10.1)
[2022-04-07 10:36] LABS: BLOOD UREA NITROGEN 6.5 mg/dL (7-18)
[2022-04-07 10:41] LABS: BILIRUBIN,TOTAL 0.8 mg/dL (0.2-1); TOT PROT 6.1 g/dl (6.4-8.2)
[2022-04-07] MEDS: hydrOXYzine PAMOATE 25 MG CAPSULE (FP) PO PRN (11:15)
[2022-04-07] MEDS: PRENATAL VITAMINS W/ FOLIC ACID TABLET (FP) PO SCH (11:15)
[2022-04-07] MEDS: ASPIRIN 81 MG CHEWABLE TABLETS PO SCH (11:15)
[2022-04-07] MEDS: ENALAPRIL MALEATE 10 MG TABLET PO SCH ×2 (11:15→22:29)
[2022-04-07] MEDS: levETIRAcetam 250 MG TABLET PO SCH ×2 (11:15→22:29)
[2022-04-07] MEDS: ACETAMINOPHEN 325 MG TABLET (FP) PO PRN (15:13)
[2022-04-07] MEDS ORDERED: ALBUTEROL SO4 HFA INHALER IH PRN (15:13)
[2022-04-07] MEDS: guaiFENesin 200 MG/10 ML 10 ML UNIT-DOSE CUPS PO PRN ×2 (15:23→22:32)
[2022-04-07] MEDS: MAG HYDROX/AL HYDROX/SIMETH 30 ML UNIT-DOSE CUP PO PRN (17:25)
[2022-04-07] MEDS: THIAMINE HCL 100 MG TABLET (FP) PO SCH (22:29)
[2022-04-07] MEDS: MELATONIN 5 MG TABLETS PO SCH (22:32)
[2022-04-08] MEDS: GABAPENTIN 300 MG CAPSULE PO SCH ×3 (05:56→22:27)
[2022-04-08] MEDS: chlordiazePOXIDE HCL 25 MG CAPSULE PO SCH ×4 (05:56→22:27)
[2022-04-08] MEDS: guaiFENesin 200 MG/10 ML 10 ML UNIT-DOSE CUPS PO PRN ×2 (05:57→18:04)
[2022-04-08] MEDS: PANTOPRAZOLE 40 MG TABLET PO SCH (06:22)
[2022-04-08] MEDS: ASPIRIN 81 MG CHEWABLE TABLETS PO SCH (10:27)
[2022-04-08] MEDS: PRENATAL VITAMINS W/ FOLIC ACID TABLET (FP) PO SCH (10:27)
[2022-04-08] MEDS: levETIRAcetam 250 MG TABLET PO SCH ×2 (10:27→22:29)
[2022-04-08] MEDS: ENALAPRIL MALEATE 10 MG TABLET PO SCH ×2 (10:27→22:27)
[2022-04-08] MEDS: ACETAMINOPHEN 325 MG TABLET (FP) PO PRN (10:30)
[2022-04-08] MEDS: NICOTINE 10 MG CARTRIDGE (INHALER) IH PRN (13:22)
[2022-04-08] MEDS: MAG HYDROX/AL HYDROX/SIMETH 30 ML UNIT-DOSE CUP PO PRN (15:48)
[2022-04-08] MEDS: hydrOXYzine PAMOATE 25 MG CAPSULE (FP) PO PRN (18:07)
[2022-04-08] MEDS: THIAMINE HCL 100 MG TABLET (FP) PO SCH (22:27)
[2022-04-08] MEDS: METHOCARBAMOL 500 MG TABLET PO PRN (22:27)
[2022-04-08] MEDS: MELATONIN 5 MG TABLETS PO SCH (22:27)
[2022-04-09] MEDS ORDERED: chlordiazePOXIDE HCL 10 MG CAPSULE PO PRN
[2022-04-09] MEDS: GABAPENTIN 300 MG CAPSULE PO SCH ×3 (05:37→21:08)
[2022-04-09] MEDS: chlordiazePOXIDE HCL 10 MG CAPSULE PO SCH ×4 (05:37→22:46)
[2022-04-09] MEDS: PANTOPRAZOLE 40 MG TABLET PO SCH (06:44)
[2022-04-09] MEDS: ENALAPRIL MALEATE 10 MG TABLET PO SCH ×2 (10:06→21:08)
[2022-04-09] MEDS: ASPIRIN 81 MG CHEWABLE TABLETS PO SCH (10:06)
[2022-04-09] MEDS: levETIRAcetam 250 MG TABLET PO SCH ×2 (10:07→21:08)
[2022-04-09] MEDS: PRENATAL VITAMINS W/ FOLIC ACID TABLET (FP) PO SCH (10:07)
[2022-04-09] MEDS: ACETAMINOPHEN 325 MG TABLET (FP) PO PRN ×3 (10:09→21:08)
[2022-04-09] MEDS: IBUPROFEN 400 MG TABLET (FP) PO PRN (13:18)
[2022-04-09] MEDS: METHOCARBAMOL 500 MG TABLET PO PRN (13:19)
[2022-04-09] MEDS: guaiFENesin 200 MG/10 ML 10 ML UNIT-DOSE CUPS PO PRN ×2 (13:21→21:11)
[2022-04-09] MEDS: THIAMINE HCL 100 MG TABLET (FP) PO SCH (21:08)
[2022-04-09] MEDS: MELATONIN 5 MG TABLETS PO SCH (21:09)
[2022-04-10] MEDS: chlordiazePOXIDE HCL 10 MG CAPSULE PO SCH ×2 (05:32→17:07)
[2022-04-10] MEDS: GABAPENTIN 300 MG CAPSULE PO SCH ×3 (05:32→21:49)
[2022-04-10] MEDS: IBUPROFEN 600 MG TABLET (FP) PO PRN ×2 (05:33→13:58)
[2022-04-10] MEDS: guaiFENesin 200 MG/10 ML 10 ML UNIT-DOSE CUPS PO PRN ×2 (05:35→17:08)
[2022-04-10] MEDS: PANTOPRAZOLE 40 MG TABLET PO SCH (06:26)
[2022-04-10] MEDS: levETIRAcetam 250 MG TABLET PO SCH ×2 (10:07→21:49)
[2022-04-10] MEDS: ENALAPRIL MALEATE 10 MG TABLET PO SCH ×3 (10:07→21:49)
[2022-04-10] MEDS: PRENATAL VITAMINS W/ FOLIC ACID TABLET (FP) PO SCH (10:07)
[2022-04-10] MEDS: ASPIRIN 81 MG CHEWABLE TABLETS PO SCH (10:07)
[2022-04-10] MEDS: NICOTINE 10 MG CARTRIDGE (INHALER) IH PRN (10:08)
[2022-04-10] MEDS: ACETAMINOPHEN 325 MG TABLET (FP) PO PRN (10:09)
[2022-04-10] MEDS: MELATONIN 5 MG TABLETS PO SCH (21:48)
[2022-04-10] MEDS: THIAMINE HCL 100 MG TABLET (FP) PO SCH (21:49)
[2022-04-11] MEDS ORDERED: chlordiazePOXIDE HCL 10 MG CAPSULE PO ONE (05:00)
[2022-04-11] MEDS: METHOCARBAMOL 500 MG TABLET PO PRN (06:07)
[2022-04-11] MEDS: hydrOXYzine PAMOATE 25 MG CAPSULE (FP) PO PRN (06:07)
[2022-04-11] MEDS: GABAPENTIN 300 MG CAPSULE PO SCH (06:07)
[2022-04-11] MEDS: PANTOPRAZOLE 40 MG TABLET PO SCH (06:07)
[2022-04-11] MEDS: ENALAPRIL MALEATE 10 MG TABLET PO SCH (06:07)
[2022-04-11] MEDS: guaiFENesin 200 MG/10 ML 10 ML UNIT-DOSE CUPS PO PRN (06:10)
[2022-04-11 09:17] VITALS: BP 156/97; PULSE 93; RESP 18; TEMP 97.4
[2022-04-11] MEDS: levETIRAcetam 250 MG TABLET PO SCH (10:23)
[2022-04-11] MEDS: ASPIRIN 81 MG CHEWABLE TABLETS PO SCH (10:23)
[2022-04-11] MEDS: PRENATAL VITAMINS W/ FOLIC ACID TABLET (FP) PO SCH (10:23)
[2022-04-11] MEDS: IBUPROFEN 400 MG TABLET (FP) PO PRN (10:28)
[2022-04-11] MEDS: NICOTINE 10 MG CARTRIDGE (INHALER) IH PRN (10:30)
== END 2022-04-11 13:00 | disposition home or self-care (01) | DRG 775 ==
LOC: YASAS 14:16 → Y6N 20:07
PROVIDERS: ADMIT Allergy & Immunology; ATTEND Surgery
PROC: HZ2ZZZZ Detoxification Services for Substance Abuse Treatment (ICD-10-PCS; principal; 2022-04-06)
DX: F10.230 Alcohol dependence with withdrawal, uncomplicated (principal); F10.282 Alcohol dependence with alcohol-induced sleep disorder; F10.280 Alcohol dependence with alcohol-induced anxiety disorder; F12.20 Cannabis dependence, uncomplicated; F17.210 Nicotine dependence, cigarettes, uncomplicated; F43.10 Post-traumatic stress disorder, unspecified; I10 Essential (primary) hypertension; K21.9 Gastro-esophageal reflux disease without esophagitis; J45.909 Unspecified asthma, uncomplicated; M17.0 Bilateral primary osteoarthritis of knee; G60.9 Hereditary and idiopathic neuropathy, unspecified; G40.909 Epilepsy, unspecified, not intractable, without status epilepticus; M19.071 Primary osteoarthritis, right ankle and foot; M19.072 Primary osteoarthritis, left ankle and foot; E66.01 Morbid (severe) obesity due to excess calories; Z68.41 Body mass index [BMI] 40.0-44.9, adult; Z91.010 Allergy to peanuts; Z91.018 Allergy to other foods; Z86.73 Personal history of transient ischemic attack (TIA), and cerebral infarction without residual deficits; Z56.0 Unemployment, unspecified
CPT/HCPCS: 36415; 80053; 85027; 86780; C9803-CS; U0003; U0005

== ENCOUNTER 2022-05-08 14:05 | Inpatient (IN) | payer OTHER ==
[2022-05-08 17:57] VITALS: BMI 40.8
[2022-05-08] MEDS ORDERED: IBUPROFEN 400 MG TABLET (FP) PO PRN (18:45)
[2022-05-08] MEDS ORDERED: MAG HYDROX/AL HYDROX/SIMETH 30 ML UNIT-DOSE CUP PO PRN (18:45)
[2022-05-08] MEDS ORDERED: MAGNESIUM HYDROX 2400MG/30ML ORAL SUSPENSION 30 ML CUP PO PRN (18:45)
[2022-05-08] MEDS ORDERED: DICYCLOMINE HCL 10 MG CAPSULE PO PRN (18:45)
[2022-05-08] MEDS ORDERED: BISMUTH SUBSALICYLATE 524 MG/30 ML PO PRN (18:45)
[2022-05-08] MEDS ORDERED: ONDANSETRON *ODT* 4 MG TABLET SL PRN (18:45)
[2022-05-08] MEDS ORDERED: NICOTINE 10 MG CARTRIDGE (INHALER) IH PRN (18:45)
[2022-05-08] MEDS ORDERED: BENZOCAINE/MENTHOL (CHLORASEPTIC ) LOZENGE MM PRN (18:45)
[2022-05-08] MEDS ORDERED: NALOXONE HCL (KLOXXADO) 8 MG SPRAY NS PRN (18:45)
[2022-05-08] MEDS ORDERED: IBUPROFEN 600 MG TABLET (FP) PO PRN (18:45)
[2022-05-08] MEDS ORDERED: ACETAMINOPHEN 325 MG TABLET (FP) PO PRN (18:45)
[2022-05-08] MEDS ORDERED: POLYETHYLENE GLYCOL (HEALTHYLAX) 3350 17 GM PACKET PO PRN (18:45)
[2022-05-08] MEDS ORDERED: ALBUTEROL SO4 HFA INHALER IH PRN (18:48)
[2022-05-08] MEDS: ACETAMINOPHEN 325 MG TABLET (FP) PO PRN (21:09)
[2022-05-08] MEDS: MELATONIN 5 MG TABLETS PO SCH (22:13)
[2022-05-08] MEDS: METHOCARBAMOL 500 MG TABLET PO PRN (22:13)
[2022-05-08] MEDS: THIAMINE HCL 100 MG TABLET (FP) PO SCH (22:13)
[2022-05-08] MEDS: diazePAM 5 MG TABLET PO SCH (22:14)
[2022-05-09] MEDS: diazePAM 5 MG TABLET PO SCH ×4 (05:46→22:09)
[2022-05-09] MEDS: ACETAMINOPHEN 325 MG TABLET (FP) PO PRN (10:03)
[2022-05-09] MEDS: PRENATAL VITAMINS W/ FOLIC ACID TABLET (FP) PO SCH (10:03)
[2022-05-09] MEDS: NICOTINE 21 MG/24 HOURS TOPICAL PATCH TD SCH (10:03)
[2022-05-09] MEDS: ENALAPRIL MALEATE 10 MG TABLET PO SCH ×2 (11:07→22:08)
[2022-05-09] MEDS: levETIRAcetam 250 MG TABLET PO SCH ×2 (11:08→22:08)
[2022-05-09] MEDS ORDERED: PANTOPRAZOLE 40 MG TABLET PO ONE (11:30)
[2022-05-09 13:11] LABS: CALCIUM 8.5 mg/dL (8.5-10.1)
[2022-05-09 13:12] LABS: ALBUMIN 3.4 g/dl (3.4-5.0); HEMATOCRIT 35.4 % (35.4-49); HEMOGLOBIN 11.2 GM/dL (11.7-16.9); MCH 25.9 pg (25.7-33.7); MCHC 31.8 g/dl (32.0-35.9); MEAN CELL VOLUME 81.5 fl (80-96); MEAN PLT VOLUME 8.6 fl (7.5-11.1); PLATELET COUNT 316 10^3/uL (134-434); RBC 4.34 M/mm3 (4.00-5.60); RDW 22.2 % (11.9-15.9); WHITE BLOOD COUNT 6.6 K/mm3 (4.0-10.0)
[2022-05-09 13:16] LABS: BLOOD UREA NITROGEN 17.2 mg/dL (7-18); TOT PROT 6.4 g/dl (6.4-8.2)
[2022-05-09 13:17] LABS: BILIRUBIN,TOTAL 0.4 mg/dL (0.2-1)
[2022-05-09 13:21] LABS: CREATININE 0.9 mg/dL (0.55-1.3)
[2022-05-09] MEDS: GABAPENTIN 300 MG CAPSULE PO SCH ×2 (15:13→22:07)
[2022-05-09] MEDS: LOPERAMIDE HCL 2 MG CAPSULE PO PRN (22:07)
[2022-05-09] MEDS: THIAMINE HCL 100 MG TABLET (FP) PO SCH (22:08)
[2022-05-09] MEDS: METHOCARBAMOL 500 MG TABLET PO PRN (22:08)
[2022-05-09] MEDS: ATORVASTATIN CA 40 MG TABLET (FP) PO SCH (22:36)
[2022-05-09] MEDS: MELATONIN 5 MG TABLETS PO SCH (22:36)
[2022-05-10] MEDS: diazePAM 5 MG TABLET PO SCH ×3 (06:23→22:15)
[2022-05-10] MEDS: PANTOPRAZOLE 40 MG TABLET PO SCH (06:24)
[2022-05-10] MEDS: GABAPENTIN 300 MG CAPSULE PO SCH ×3 (06:24→22:12)
[2022-05-10] MEDS: PRENATAL VITAMINS W/ FOLIC ACID TABLET (FP) PO SCH (10:19)
[2022-05-10] MEDS: levETIRAcetam 250 MG TABLET PO SCH ×2 (10:20→22:11)
[2022-05-10] MEDS: NICOTINE 21 MG/24 HOURS TOPICAL PATCH TD SCH (10:23)
[2022-05-10] MEDS: ACETAMINOPHEN 325 MG TABLET (FP) PO PRN ×2 (10:25→16:58)
[2022-05-10] MEDS: ENALAPRIL MALEATE 10 MG TABLET PO SCH ×2 (10:26→22:13)
[2022-05-10] MEDS: METHOCARBAMOL 500 MG TABLET PO PRN ×2 (12:50→22:13)
[2022-05-10] MEDS: diazePAM 5 MG TABLET PO PRN (17:00)
[2022-05-10] MEDS: MELATONIN 5 MG TABLETS PO SCH (22:11)
[2022-05-10] MEDS: THIAMINE HCL 100 MG TABLET (FP) PO SCH (22:12)
[2022-05-10] MEDS: ATORVASTATIN CA 40 MG TABLET (FP) PO SCH (22:12)
[2022-05-10] MEDS: LOPERAMIDE HCL 2 MG CAPSULE PO PRN (22:14)
[2022-05-11] MEDS: GABAPENTIN 300 MG CAPSULE PO SCH ×3 (05:49→22:11)
[2022-05-11] MEDS: ACETAMINOPHEN 325 MG TABLET (FP) PO PRN (05:49)
[2022-05-11] MEDS: diazePAM 5 MG TABLET PO SCH ×2 (05:49→17:20)
[2022-05-11] MEDS: PANTOPRAZOLE 40 MG TABLET PO SCH (06:50)
[2022-05-11] MEDS: diazePAM 5 MG TABLET PO PRN ×2 (10:29→15:38)
[2022-05-11] MEDS: ENALAPRIL MALEATE 10 MG TABLET PO SCH ×2 (10:29→22:11)
[2022-05-11] MEDS: PRENATAL VITAMINS W/ FOLIC ACID TABLET (FP) PO SCH (10:29)
[2022-05-11] MEDS: levETIRAcetam 250 MG TABLET PO SCH ×2 (10:29→22:11)
[2022-05-11] MEDS: NICOTINE 21 MG/24 HOURS TOPICAL PATCH TD SCH (10:57)
[2022-05-11] MEDS: ASPIRIN 81 MG CHEWABLE TABLETS PO SCH (12:07)
[2022-05-11] MEDS: MELATONIN 5 MG TABLETS PO SCH (22:10)
[2022-05-11] MEDS: ATORVASTATIN CA 40 MG TABLET (FP) PO SCH (22:11)
[2022-05-11] MEDS: THIAMINE HCL 100 MG TABLET (FP) PO SCH (22:11)
[2022-05-11] MEDS: METHOCARBAMOL 500 MG TABLET PO PRN (22:22)
[2022-05-12] MEDS ORDERED: diazePAM 5 MG TABLET PO ONE (06:00)
[2022-05-12] MEDS: PANTOPRAZOLE 40 MG TABLET PO SCH (06:10)
[2022-05-12] MEDS: GABAPENTIN 300 MG CAPSULE PO SCH ×2 (06:10→13:33)
[2022-05-12] MEDS: ENALAPRIL MALEATE 10 MG TABLET PO SCH (10:14)
[2022-05-12] MEDS: ASPIRIN 81 MG CHEWABLE TABLETS PO SCH (10:14)
[2022-05-12] MEDS: levETIRAcetam 250 MG TABLET PO SCH (10:14)
[2022-05-12] MEDS: NICOTINE 21 MG/24 HOURS TOPICAL PATCH TD SCH (10:18)
[2022-05-12] MEDS: PRENATAL VITAMINS W/ FOLIC ACID TABLET (FP) PO SCH (10:18)
[2022-05-12 13:28] VITALS: BP 147/77; PULSE 91; RESP 18; TEMP 97.8
== END 2022-05-12 15:06 | disposition other institution (70) | DRG 774 ==
LOC: YASAS 14:05 → Y3N 18:41
PROVIDERS: ADMIT Allergy & Immunology; ATTEND Surgery
PROC: HZ2ZZZZ Detoxification Services for Substance Abuse Treatment (ICD-10-PCS; principal; 2022-05-08)
DX: F10.230 Alcohol dependence with withdrawal, uncomplicated (principal); F13.20 Sedative, hypnotic or anxiolytic dependence, uncomplicated; F14.20 Cocaine dependence, uncomplicated; F12.20 Cannabis dependence, uncomplicated; F17.210 Nicotine dependence, cigarettes, uncomplicated; F43.10 Post-traumatic stress disorder, unspecified; G62.9 Polyneuropathy, unspecified; G40.909 Epilepsy, unspecified, not intractable, without status epilepticus; E78.5 Hyperlipidemia, unspecified; I10 Essential (primary) hypertension; J45.20 Mild intermittent asthma, uncomplicated; K21.9 Gastro-esophageal reflux disease without esophagitis; M17.0 Bilateral primary osteoarthritis of knee; M19.071 Primary osteoarthritis, right ankle and foot; M19.072 Primary osteoarthritis, left ankle and foot; E66.01 Morbid (severe) obesity due to excess calories; Z68.41 Body mass index [BMI] 40.0-44.9, adult; Z88.8 Allergy status to other drugs, medicaments and biological substances
CPT/HCPCS: 36415; 80053; 85027; 86780; C9803-CS; U0003; U0005

== ENCOUNTER 2022-05-12 15:13 | Inpatient (IN) | payer OTHER ==
[2022-05-12 15:38] VITALS: RESP 18
[2022-05-12] MEDS ORDERED: guaiFENesin 200 MG/10 ML 10 ML UNIT-DOSE CUPS PO PRN (18:44)
[2022-05-12] MEDS ORDERED: MAG HYDROX/AL HYDROX/SIMETH 30 ML UNIT-DOSE CUP PO PRN (18:44)
[2022-05-12] MEDS ORDERED: hydrOXYzine PAMOATE 25 MG CAPSULE (FP) PO PRN (18:44)
[2022-05-12] MEDS ORDERED: MAGNESIUM HYDROX 2400MG/30ML ORAL SUSPENSION 30 ML CUP PO PRN (18:44)
[2022-05-12] MEDS ORDERED: IBUPROFEN 400 MG TABLET (FP) PO PRN (18:44)
[2022-05-12] MEDS ORDERED: P-EPHED 60MG/TRIPROLIDI 2.5MG TABLET PO PRN (18:44)
[2022-05-12] MEDS ORDERED: LOPERAMIDE HCL 2 MG CAPSULE PO PRN (18:44)
[2022-05-12] MEDS ORDERED: POLYETHYLENE GLYCOL (HEALTHYLAX) 3350 17 GM PACKET PO PRN (18:44)
[2022-05-12] MEDS ORDERED: BENZOCAINE/MENTHOL (CHLORASEPTIC ) LOZENGE MM PRN (18:44)
[2022-05-12] MEDS ORDERED: ALBUTEROL SO4 HFA INHALER IH PRN (18:47)
[2022-05-12] MEDS: THIAMINE HCL 100 MG TABLET (FP) PO SCH (21:27)
[2022-05-12] MEDS: GABAPENTIN 300 MG CAPSULE PO SCH (21:27)
[2022-05-12] MEDS: levETIRAcetam 250 MG TABLET PO SCH (21:27)
[2022-05-12] MEDS: ATORVASTATIN CA 40 MG TABLET (FP) PO SCH (21:27)
[2022-05-12] MEDS: MELATONIN 5 MG TABLETS PO SCH (21:27)
[2022-05-12] MEDS: METHOCARBAMOL 500 MG TABLET PO PRN (21:32)
[2022-05-13] MEDS: GABAPENTIN 300 MG CAPSULE PO SCH ×3 (06:40→21:30)
[2022-05-13] MEDS: ASPIRIN 81 MG CHEWABLE TABLETS PO SCH (09:39)
[2022-05-13] MEDS: amLODIPine BESYLATE 5 MG TABLET (FP) PO SCH (09:39)
[2022-05-13] MEDS: HYDROCHLOROTHIAZIDE 25 MG TABLET (FP) PO SCH (09:39)
[2022-05-13] MEDS: levETIRAcetam 250 MG TABLET PO SCH ×2 (09:42→21:30)
[2022-05-13] MEDS: NICOTINE 10 MG CARTRIDGE (INHALER) IH PRN (09:43)
[2022-05-13] MEDS: PRENATAL VITAMINS W/ FOLIC ACID TABLET (FP) PO SCH (09:45)
[2022-05-13] MEDS: NICOTINE 7 MG/24 HOURS TOPICAL PATCH TD SCH (09:45)
[2022-05-13] MEDS ORDERED: PANTOPRAZOLE 40 MG TABLET PO SCH ×2 (10:00)
[2022-05-13] MEDS: MELATONIN 5 MG TABLETS PO SCH (21:29)
[2022-05-13] MEDS: ATORVASTATIN CA 40 MG TABLET (FP) PO SCH (21:30)
[2022-05-13] MEDS: THIAMINE HCL 100 MG TABLET (FP) PO SCH (21:31)
[2022-05-13] MEDS: METHOCARBAMOL 500 MG TABLET PO PRN (22:41)
[2022-05-14] MEDS: PANTOPRAZOLE 40 MG TABLET PO SCH (06:49)
[2022-05-14] MEDS: GABAPENTIN 300 MG CAPSULE PO SCH ×3 (06:50→21:23)
[2022-05-14] MEDS: NICOTINE 7 MG/24 HOURS TOPICAL PATCH TD SCH (10:06)
[2022-05-14] MEDS: PRENATAL VITAMINS W/ FOLIC ACID TABLET (FP) PO SCH (10:06)
[2022-05-14] MEDS: ASPIRIN 81 MG CHEWABLE TABLETS PO SCH (10:07)
[2022-05-14] MEDS: HYDROCHLOROTHIAZIDE 25 MG TABLET (FP) PO SCH (10:07)
[2022-05-14] MEDS: levETIRAcetam 250 MG TABLET PO SCH ×2 (10:07→21:23)
[2022-05-14] MEDS: amLODIPine BESYLATE 5 MG TABLET (FP) PO SCH (10:07)
[2022-05-14] MEDS: ACETAMINOPHEN 325 MG TABLET (FP) PO PRN (10:08)
[2022-05-14] MEDS: NICOTINE 10 MG CARTRIDGE (INHALER) IH PRN (10:10)
[2022-05-14] MEDS: ATORVASTATIN CA 40 MG TABLET (FP) PO SCH (21:23)
[2022-05-14] MEDS: METHOCARBAMOL 500 MG TABLET PO PRN (21:23)
[2022-05-14] MEDS: THIAMINE HCL 100 MG TABLET (FP) PO SCH (21:24)
[2022-05-14] MEDS: MELATONIN 5 MG TABLETS PO SCH (21:24)
[2022-05-15] MEDS: PANTOPRAZOLE 40 MG TABLET PO SCH (06:23)
[2022-05-15] MEDS: GABAPENTIN 300 MG CAPSULE PO SCH ×3 (06:24→21:00)
[2022-05-15] MEDS: NICOTINE 7 MG/24 HOURS TOPICAL PATCH TD SCH (09:56)
[2022-05-15] MEDS: amLODIPine BESYLATE 5 MG TABLET (FP) PO SCH (09:57)
[2022-05-15] MEDS: ASPIRIN 81 MG CHEWABLE TABLETS PO SCH (09:57)
[2022-05-15] MEDS: PRENATAL VITAMINS W/ FOLIC ACID TABLET (FP) PO SCH (09:57)
[2022-05-15] MEDS: levETIRAcetam 250 MG TABLET PO SCH ×2 (09:57→21:01)
[2022-05-15] MEDS: HYDROCHLOROTHIAZIDE 25 MG TABLET (FP) PO SCH (09:57)
[2022-05-15] MEDS: NICOTINE 10 MG CARTRIDGE (INHALER) IH PRN (09:59)
[2022-05-15] MEDS: ACETAMINOPHEN 325 MG TABLET (FP) PO PRN ×2 (11:43→19:41)
[2022-05-15] MEDS: ATORVASTATIN CA 40 MG TABLET (FP) PO SCH (21:00)
[2022-05-15] MEDS: MELATONIN 5 MG TABLETS PO SCH (21:01)
[2022-05-15] MEDS: THIAMINE HCL 100 MG TABLET (FP) PO SCH (21:01)
[2022-05-16] MEDS: GABAPENTIN 300 MG CAPSULE PO SCH ×3 (07:10→21:38)
[2022-05-16] MEDS: PANTOPRAZOLE 40 MG TABLET PO SCH (07:10)
[2022-05-16] MEDS: levETIRAcetam 250 MG TABLET PO SCH ×2 (10:13→21:38)
[2022-05-16] MEDS: ASPIRIN 81 MG CHEWABLE TABLETS PO SCH (10:13)
[2022-05-16] MEDS: amLODIPine BESYLATE 5 MG TABLET (FP) PO SCH (10:13)
[2022-05-16] MEDS: NICOTINE 7 MG/24 HOURS TOPICAL PATCH TD SCH (10:14)
[2022-05-16] MEDS: HYDROCHLOROTHIAZIDE 25 MG TABLET (FP) PO SCH (10:14)
[2022-05-16] MEDS: PRENATAL VITAMINS W/ FOLIC ACID TABLET (FP) PO SCH (10:14)
[2022-05-16] MEDS: NICOTINE 10 MG CARTRIDGE (INHALER) IH PRN ×2 (10:18→21:40)
[2022-05-16] MEDS: METHOCARBAMOL 500 MG TABLET PO PRN ×2 (10:18→21:38)
[2022-05-16] MEDS: MELATONIN 5 MG TABLETS PO SCH (21:38)
[2022-05-16] MEDS: ATORVASTATIN CA 40 MG TABLET (FP) PO SCH (21:38)
[2022-05-16] MEDS: THIAMINE HCL 100 MG TABLET (FP) PO SCH (21:38)
[2022-05-17] MEDS: GABAPENTIN 300 MG CAPSULE PO SCH ×3 (06:42→21:38)
[2022-05-17] MEDS: PANTOPRAZOLE 40 MG TABLET PO SCH (06:42)
[2022-05-17] MEDS: ASPIRIN 81 MG CHEWABLE TABLETS PO SCH (10:11)
[2022-05-17] MEDS: NICOTINE 7 MG/24 HOURS TOPICAL PATCH TD SCH (10:11)
[2022-05-17] MEDS: HYDROCHLOROTHIAZIDE 25 MG TABLET (FP) PO SCH (10:12)
[2022-05-17] MEDS: levETIRAcetam 250 MG TABLET PO SCH ×2 (10:12→21:38)
[2022-05-17] MEDS: amLODIPine BESYLATE 5 MG TABLET (FP) PO SCH (10:12)
[2022-05-17] MEDS: PRENATAL VITAMINS W/ FOLIC ACID TABLET (FP) PO SCH (10:14)
[2022-05-17] MEDS: ACETAMINOPHEN 325 MG TABLET (FP) PO PRN (10:15)
[2022-05-17] MEDS: NICOTINE 10 MG CARTRIDGE (INHALER) IH PRN (10:17)
[2022-05-17] MEDS: METHOCARBAMOL 500 MG TABLET PO PRN (21:38)
[2022-05-17] MEDS: MELATONIN 5 MG TABLETS PO SCH (21:38)
[2022-05-17] MEDS: ATORVASTATIN CA 40 MG TABLET (FP) PO SCH (21:38)
[2022-05-17] MEDS: THIAMINE HCL 100 MG TABLET (FP) PO SCH (23:23)
[2022-05-18] MEDS: PANTOPRAZOLE 40 MG TABLET PO SCH (06:55)
[2022-05-18] MEDS: GABAPENTIN 300 MG CAPSULE PO SCH ×3 (06:55→21:28)
[2022-05-18] MEDS: NICOTINE 7 MG/24 HOURS TOPICAL PATCH TD SCH (10:17)
[2022-05-18] MEDS: amLODIPine BESYLATE 5 MG TABLET (FP) PO SCH (10:17)
[2022-05-18] MEDS: PRENATAL VITAMINS W/ FOLIC ACID TABLET (FP) PO SCH (10:17)
[2022-05-18] MEDS: ASPIRIN 81 MG CHEWABLE TABLETS PO SCH (10:17)
[2022-05-18] MEDS: levETIRAcetam 250 MG TABLET PO SCH ×2 (10:18→21:28)
[2022-05-18] MEDS: HYDROCHLOROTHIAZIDE 25 MG TABLET (FP) PO SCH (10:18)
[2022-05-18] MEDS: METHOCARBAMOL 500 MG TABLET PO PRN ×2 (10:19→21:29)
[2022-05-18] MEDS: NICOTINE 10 MG CARTRIDGE (INHALER) IH PRN (10:21)
[2022-05-18] MEDS: ATORVASTATIN CA 40 MG TABLET (FP) PO SCH (21:28)
[2022-05-18] MEDS: THIAMINE HCL 100 MG TABLET (FP) PO SCH (21:29)
[2022-05-18] MEDS: MELATONIN 5 MG TABLETS PO SCH (21:29)
[2022-05-19] MEDS: GABAPENTIN 300 MG CAPSULE PO SCH ×3 (06:47→21:21)
[2022-05-19] MEDS: PANTOPRAZOLE 40 MG TABLET PO SCH (06:47)
[2022-05-19] MEDS: METHOCARBAMOL 500 MG TABLET PO PRN ×2 (06:48→21:20)
[2022-05-19] MEDS: PRENATAL VITAMINS W/ FOLIC ACID TABLET (FP) PO SCH (10:14)
[2022-05-19] MEDS: NICOTINE 7 MG/24 HOURS TOPICAL PATCH TD SCH (10:14)
[2022-05-19] MEDS: ASPIRIN 81 MG CHEWABLE TABLETS PO SCH (10:15)
[2022-05-19] MEDS: levETIRAcetam 250 MG TABLET PO SCH ×2 (10:15→21:21)
[2022-05-19] MEDS: HYDROCHLOROTHIAZIDE 25 MG TABLET (FP) PO SCH (10:15)
[2022-05-19] MEDS: amLODIPine BESYLATE 5 MG TABLET (FP) PO SCH (10:15)
[2022-05-19] MEDS: NICOTINE 10 MG CARTRIDGE (INHALER) IH PRN (10:17)
[2022-05-19] MEDS: ACETAMINOPHEN 325 MG TABLET (FP) PO PRN (17:20)
[2022-05-19] MEDS: HYDROCORTISONE 2.5% TOPICAL CREAM 30 GM TUBE RC PRN (19:54)
[2022-05-19] MEDS: COLLOIDAL OATMEAL 1 BAR EACH TP PRN (19:56)
[2022-05-19] MEDS: MELATONIN 5 MG TABLETS PO SCH (21:21)
[2022-05-19] MEDS: ATORVASTATIN CA 40 MG TABLET (FP) PO SCH (21:21)
[2022-05-19] MEDS: THIAMINE HCL 100 MG TABLET (FP) PO SCH (21:21)
[2022-05-20] MEDS: GABAPENTIN 300 MG CAPSULE PO SCH ×3 (06:48→21:31)
[2022-05-20] MEDS: PANTOPRAZOLE 40 MG TABLET PO SCH (06:48)
[2022-05-20] MEDS: NICOTINE 10 MG CARTRIDGE (INHALER) IH PRN (10:06)
[2022-05-20] MEDS: amLODIPine BESYLATE 5 MG TABLET (FP) PO SCH (10:07)
[2022-05-20] MEDS: NICOTINE 7 MG/24 HOURS TOPICAL PATCH TD SCH (10:07)
[2022-05-20] MEDS: ASPIRIN 81 MG CHEWABLE TABLETS PO SCH (10:07)
[2022-05-20] MEDS: HYDROCHLOROTHIAZIDE 25 MG TABLET (FP) PO SCH (10:07)
[2022-05-20] MEDS: PRENATAL VITAMINS W/ FOLIC ACID TABLET (FP) PO SCH (10:07)
[2022-05-20] MEDS: levETIRAcetam 250 MG TABLET PO SCH ×2 (10:08→21:31)
[2022-05-20] MEDS: METHOCARBAMOL 500 MG TABLET PO PRN ×2 (10:09→21:31)
[2022-05-20] MEDS: ACETAMINOPHEN 325 MG TABLET (FP) PO PRN (16:46)
[2022-05-20] MEDS: MELATONIN 5 MG TABLETS PO SCH (21:31)
[2022-05-20] MEDS: THIAMINE HCL 100 MG TABLET (FP) PO SCH (21:32)
[2022-05-20] MEDS: ATORVASTATIN CA 40 MG TABLET (FP) PO SCH (21:32)
[2022-05-20] MEDS: HYDROCORTISONE 2.5% TOPICAL CREAM 30 GM TUBE RC PRN (23:30)
[2022-05-21] MEDS: PANTOPRAZOLE 40 MG TABLET PO SCH (06:38)
[2022-05-21] MEDS: GABAPENTIN 300 MG CAPSULE PO SCH ×3 (06:38→21:17)
[2022-05-21] MEDS: HYDROCORTISONE 2.5% TOPICAL CREAM 30 GM TUBE RC PRN ×2 (06:46→14:00)
[2022-05-21] MEDS: PRENATAL VITAMINS W/ FOLIC ACID TABLET (FP) PO SCH (10:06)
[2022-05-21] MEDS: HYDROCHLOROTHIAZIDE 25 MG TABLET (FP) PO SCH (10:06)
[2022-05-21] MEDS: ASPIRIN 81 MG CHEWABLE TABLETS PO SCH (10:06)
[2022-05-21] MEDS: levETIRAcetam 250 MG TABLET PO SCH ×2 (10:07→21:18)
[2022-05-21] MEDS: NICOTINE 10 MG CARTRIDGE (INHALER) IH PRN (10:08)
[2022-05-21] MEDS: NICOTINE 7 MG/24 HOURS TOPICAL PATCH TD SCH (10:08)
[2022-05-21] MEDS: amLODIPine BESYLATE 5 MG TABLET (FP) PO SCH (10:08)
[2022-05-21] MEDS: METHOCARBAMOL 500 MG TABLET PO PRN ×3 (10:09→21:17)
[2022-05-21] MEDS: ACETAMINOPHEN 325 MG TABLET (FP) PO PRN (13:59)
[2022-05-21] MEDS: MELATONIN 5 MG TABLETS PO SCH (21:16)
[2022-05-21] MEDS: ATORVASTATIN CA 40 MG TABLET (FP) PO SCH (21:16)
[2022-05-21] MEDS: THIAMINE HCL 100 MG TABLET (FP) PO SCH (21:17)
[2022-05-22] MEDS: PANTOPRAZOLE 40 MG TABLET PO SCH (07:09)
[2022-05-22] MEDS: GABAPENTIN 300 MG CAPSULE PO SCH ×3 (07:09→21:19)
[2022-05-22] MEDS: PRENATAL VITAMINS W/ FOLIC ACID TABLET (FP) PO SCH (09:36)
[2022-05-22] MEDS: levETIRAcetam 250 MG TABLET PO SCH ×2 (09:36→21:19)
[2022-05-22] MEDS: HYDROCHLOROTHIAZIDE 25 MG TABLET (FP) PO SCH (09:37)
[2022-05-22] MEDS: METHOCARBAMOL 500 MG TABLET PO PRN ×2 (09:38→21:19)
[2022-05-22] MEDS: amLODIPine BESYLATE 5 MG TABLET (FP) PO SCH (09:38)
[2022-05-22] MEDS: ASPIRIN 81 MG CHEWABLE TABLETS PO SCH (09:38)
[2022-05-22] MEDS: NICOTINE 7 MG/24 HOURS TOPICAL PATCH TD SCH (09:39)
[2022-05-22] MEDS: NICOTINE 10 MG CARTRIDGE (INHALER) IH PRN (09:39)
[2022-05-22] MEDS: ACETAMINOPHEN 325 MG TABLET (FP) PO PRN (16:44)
[2022-05-22] MEDS: ATORVASTATIN CA 40 MG TABLET (FP) PO SCH (21:19)
[2022-05-22] MEDS: MELATONIN 5 MG TABLETS PO SCH (21:19)
[2022-05-22] MEDS: THIAMINE HCL 100 MG TABLET (FP) PO SCH (21:19)
[2022-05-23] MEDS: PANTOPRAZOLE 40 MG TABLET PO SCH (07:13)
[2022-05-23] MEDS: GABAPENTIN 300 MG CAPSULE PO SCH ×3 (07:13→21:35)
[2022-05-23] MEDS: ASPIRIN 81 MG CHEWABLE TABLETS PO SCH (10:19)
[2022-05-23] MEDS: NICOTINE 10 MG CARTRIDGE (INHALER) IH PRN (10:20)
[2022-05-23] MEDS: NICOTINE 7 MG/24 HOURS TOPICAL PATCH TD SCH (10:20)
[2022-05-23] MEDS: levETIRAcetam 250 MG TABLET PO SCH ×2 (10:20→21:35)
[2022-05-23] MEDS: METHOCARBAMOL 500 MG TABLET PO PRN ×2 (10:21→21:35)
[2022-05-23] MEDS: amLODIPine BESYLATE 5 MG TABLET (FP) PO SCH (10:22)
[2022-05-23] MEDS: PRENATAL VITAMINS W/ FOLIC ACID TABLET (FP) PO SCH (10:22)
[2022-05-23] MEDS: HYDROCHLOROTHIAZIDE 25 MG TABLET (FP) PO SCH (10:22)
[2022-05-23] MEDS: COLLOIDAL OATMEAL 1 BAR EACH TP PRN (12:54)
[2022-05-23] MEDS: ATORVASTATIN CA 40 MG TABLET (FP) PO SCH (21:35)
[2022-05-23] MEDS: THIAMINE HCL 100 MG TABLET (FP) PO SCH (21:35)
[2022-05-23] MEDS: MELATONIN 5 MG TABLETS PO SCH (21:36)
[2022-05-24] MEDS: GABAPENTIN 300 MG CAPSULE PO SCH ×3 (06:43→21:18)
[2022-05-24] MEDS: PANTOPRAZOLE 40 MG TABLET PO SCH (06:43)
[2022-05-24] MEDS: NICOTINE 7 MG/24 HOURS TOPICAL PATCH TD SCH (10:13)
[2022-05-24] MEDS: ASPIRIN 81 MG CHEWABLE TABLETS PO SCH (10:14)
[2022-05-24] MEDS: HYDROCHLOROTHIAZIDE 25 MG TABLET (FP) PO SCH (10:14)
[2022-05-24] MEDS: PRENATAL VITAMINS W/ FOLIC ACID TABLET (FP) PO SCH (10:14)
[2022-05-24] MEDS: amLODIPine BESYLATE 5 MG TABLET (FP) PO SCH (10:14)
[2022-05-24] MEDS: levETIRAcetam 250 MG TABLET PO SCH ×2 (10:15→21:17)
[2022-05-24] MEDS: NICOTINE 10 MG CARTRIDGE (INHALER) IH PRN (10:16)
[2022-05-24] MEDS: METHOCARBAMOL 500 MG TABLET PO PRN ×2 (10:16→21:18)
[2022-05-24] MEDS: MELATONIN 5 MG TABLETS PO SCH (21:17)
[2022-05-24] MEDS: ATORVASTATIN CA 40 MG TABLET (FP) PO SCH (21:18)
[2022-05-24] MEDS: THIAMINE HCL 100 MG TABLET (FP) PO SCH (21:25)
[2022-05-25] MEDS: GABAPENTIN 300 MG CAPSULE PO SCH (06:38)
[2022-05-25] MEDS: PANTOPRAZOLE 40 MG TABLET PO SCH (06:38)
[2022-05-25 07:14] VITALS: TEMP 97.7
[2022-05-25] MEDS: levETIRAcetam 250 MG TABLET PO SCH (09:18)
[2022-05-25] MEDS: ASPIRIN 81 MG CHEWABLE TABLETS PO SCH (09:19)
[2022-05-25] MEDS: NICOTINE 7 MG/24 HOURS TOPICAL PATCH TD SCH (09:19)
[2022-05-25] MEDS: HYDROCHLOROTHIAZIDE 25 MG TABLET (FP) PO SCH (09:19)
[2022-05-25] MEDS: amLODIPine BESYLATE 5 MG TABLET (FP) PO SCH (09:19)
[2022-05-25] MEDS: PRENATAL VITAMINS W/ FOLIC ACID TABLET (FP) PO SCH (09:19)
[2022-05-25 10:38] VITALS: BP 155/77; PULSE 104
== END 2022-05-25 09:20 | disposition home or self-care (01) | DRG 772 ==
LOC: YASAS 15:13 → Y5N 15:15
PROVIDERS: ADMIT Allergy & Immunology; ATTEND Psychiatry & Neurology Pain Medicine
PROC: HZ42ZZZ Group Counseling for Substance Abuse Treatment, Cognitive-Behavioral (ICD-10-PCS; principal; 2022-05-12)
DX: F10.20 Alcohol dependence, uncomplicated (principal); F12.20 Cannabis dependence, uncomplicated; F17.210 Nicotine dependence, cigarettes, uncomplicated; F10.282 Alcohol dependence with alcohol-induced sleep disorder; F10.280 Alcohol dependence with alcohol-induced anxiety disorder; F43.10 Post-traumatic stress disorder, unspecified; E78.2 Mixed hyperlipidemia; G60.9 Hereditary and idiopathic neuropathy, unspecified; I10 Essential (primary) hypertension; J45.20 Mild intermittent asthma, uncomplicated; K21.9 Gastro-esophageal reflux disease without esophagitis; Z20.822 Contact with and (suspected) exposure to COVID-19; Z87.820 Personal history of traumatic brain injury; Z86.69 Personal history of other diseases of the nervous system and sense organs; Z88.8 Allergy status to other drugs, medicaments and biological substances; Z91.018 Allergy to other foods